=== PATIENT | male | born 1975 | race Two or more races ===

== ENCOUNTER 2020-12-07 02:02 | Emergency (ER) | payer OTHER ==
[~2020-12-07] VITALS: Ht 162.6 cm; Wt 54.4 kg
--- NOTE | 2020-12-07 02:25 | NUR ---
Pt bibra c/o abd pain and diahrrea x2 days. Pt aaox4 breathing evenly and unlabored. Pt attached to monitor and pox. 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 at bedside. Rt hand 20g initiated. Pt given blanket and call light within reach
[2020-12-07] MEDS ORDERED: IV NS 0.9% 1,000 ML BAG IV ONE (02:30)
--- NOTE | 2020-12-07 02:45 | NUR ---
blood sent to lab
[2020-12-07 02:50] LABS: EOSINOPHILS % (AUTO) 1.6 % (0.0-6.0); HEMATOCRIT 29 % (39-51); HEMOGLOBIN 9.4 g/dL (13.5-17.5); LYMPHOCYTES # (AUTO) 0.7 K/uL (0.8-4.8); LYMPHOCYTES % (AUTO) 14.7 % (20.0-44.0); MEAN CORPUSCULAR HGB CONC 33 g/dl (31.0-36.0); MEAN CORPUSCULAR VOLUME 92 fL (80-96); MONOCYTES # (AUTO) 0.4 K/uL (0.1-1.30); MONOCYTES % (AUTO) 7.7 % (2.0-12.0); NEUTROPHILS # (AUTO) 3.5 K/uL (1.8-8.9); PLATELET COUNT (AUTO) 175 K/uL (150-450); WHITE BLOOD COUNT (AUTO) 4.6 K/uL (4.3-11.0)
[2020-12-07] MEDS: IV NS 0.9% 500 ML BAG IV ONE (02:50)
--- NOTE | 2020-12-07 02:51 | NUR ---
pt placed on 2L O2 via nc. saturating 99%
--- NOTE | 2020-12-07 02:54 | NUR ---
md verbal order 2mg morphine iv
[2020-12-07] MEDS ORDERED: MORPHINE SULFATE INJ 2 MG/ML DISP.SYRIN ONE (02:58)
--- NOTE | 2020-12-07 02:58 | NUR ---
taken to ct
[2020-12-07] MEDS: MORPHINE SULFATE INJ 2 MG/ML DISP.SYRIN IV ONE (03:00)
--- NOTE | 2020-12-07 03:05 | NUR ---
returned from ct
[2020-12-07 03:08] LABS: ALBUMIN 3.5 g/dL (3.4-5.0); BILIRUBIN,DIRECT 0.2 mg/dL (0.0-0.2); BILIRUBIN,TOTAL 0.6 mg/dL (0.2-1.0); CALCIUM, SERUM 9.5 mg/dL (8.5-10.1); CREATININE 3.3 mg/dL (0.6-1.3); POTASSIUM 3.4 mmol/L (3.5-5.1); TOTAL PROTEIN, SERUM 7.3 g/dL (6.4-8.2)
[2020-12-07 04:07] LABS: BILIRUBIN,URINE NEGATIVE (NEGATIVE); COLOR,URINE YELLOW (YELLOW); LEUKOCYTE ESTERASE ,URINE NEGATIVE (NEGATIVE); NITRITE, URINE NEGATIVE (NEGATIVE); PH,URINE 8.5 (5.0-8.0); PROTEIN,URINE 100 mg/dl (NEGATIVE); UGLUCOSE 100 MG/DL mg/dL (NEGATIVE); UROBILINOGEN,URINE 0.2 EU/dL (0.2)
--- NOTE | 2020-12-07 04:15 | NUR ---
Patient is resting comfortably in bed with eyes closed. Easily aroused. VSS
--- NOTE | 2020-12-07 04:21 | NUR ---
called [facility] ambulance. ETA 06
--- NOTE | 2020-12-07 06:05 | NUR ---
Patient is resting comfortably in bed with eyes closed. Easily aroused. VSS
--- NOTE | 2020-12-07 06:25 | NUR ---
report given to ems
--- NOTE | 2020-12-07 06:26 | NUR ---
Patient discharged to home in stable condition. Written and verbal after care instructions given. Patient verbalizes understanding of instruction. IV removed. Catheter intact and site benign. Pressure and 4x4 applied to site. No bleeding noted. Pt dc via ambulance to residence
[2020-12-07 06:31] LABS: BACTERIA,URINE Rare /HPF (None Seen); SQUAMOUS EPITHELIAL CELL,UR Few /HPF (None Seen); WBC,URINE 0-2 /HPF (0-3)
[2020-12-07 06:44] VITALS: BP 121/67
== END 2020-12-07 06:26 | disposition home or self-care (01) ==
LOC: ER 02:10
DX: R19.7 Diarrhea, unspecified (principal); R10.84 Generalized abdominal pain
CPT/HCPCS: 36415; 74176; 80048; 80076; 81001; 83690; 85025; 96374; 99285; J2270; J7040

== ENCOUNTER 2021-03-26 10:30 | Inpatient (IN) | payer OTHER ==
[~2021-03-26] VITALS: Ht 152.4 cm; Wt 54.4 kg
--- NOTE | 2021-03-26 10:30 | NUR ---
PT BIBRA FROM HOME C/O ABDOMINAL PAIN, VOMITING AND DIARRHEA STARTED FRIDAY. PT IS AAOX4, NOT IN RESPIRATORY DISTRESS, HOOKED TO TAP DANCER, KEPT RESTED AND COMFORTABLE. WILL CONTINUE TO MONITOR.
--- NOTE | 2021-03-26 10:40 | NUR ---
PT SEEN AND EXAMINED BY .
[2021-03-26] MEDS ORDERED: IV NS 0.9% 500 ML BAG IV ONE (11:00)
[2021-03-26] MEDS ORDERED: ONDANSETRON HCL/PF 4 MG/2 ML VIAL IVP ONE (11:00)
--- NOTE | 2021-03-26 11:10 | NUR ---
IV LINE ESTABLISHED BLOOD DRAWN AND SENT TO LAB.
[2021-03-26] MEDS ORDERED: ONDANSETRON HCL/PF 4 MG/2 ML VIAL ONE (11:11)
--- NOTE | 2021-03-26 11:21 | NUR ---
COVID SPECIMEN OBTAINED AND SENT TO LAB.
[2021-03-26 11:52] LABS: BASOPHILS % (AUTO) 0.5 % (0.0-2.0); EOSINOPHILS % (AUTO) 0.9 % (0.0-6.0); HEMATOCRIT 35 % (39-51); HEMOGLOBIN 11.4 g/dL (13.5-17.5); LYMPHOCYTES # (AUTO) 0.8 K/uL (0.8-4.8); LYMPHOCYTES % (AUTO) 17.4 % (20.0-44.0); MEAN CORPUSCULAR HGB CONC 33 g/dl (31.0-36.0); MEAN CORPUSCULAR VOLUME 87 fL (80-96); MONOCYTES # (AUTO) 0.3 K/uL (0.1-1.30); MONOCYTES % (AUTO) 6.7 % (2.0-12.0); NEUTROPHILS # (AUTO) 3.3 K/uL (1.8-8.9); NEUTROPHILS % (AUTO) 74.5 % (43.0-81.0); PLATELET COUNT (AUTO) 138 K/uL (150-450); RED BLOOD CELL COUNT(AUTO) 4.03 MIL/uL (4.5-6.0); WHITE BLOOD COUNT (AUTO) 4.4 K/uL (4.3-11.0)
[2021-03-26 12:25] LABS: ALANINE AMINOTRANSFERASE 20 U/L (12-78); ALBUMIN 3.6 g/dL (3.4-5.0); ALKALINE PHOSPHATASE 551 U/L (46-116); ASPARTATE AMINOTRANSFERASE 19 U/L (15-37); BILIRUBIN,DIRECT 0.3 mg/dL (0.0-0.2); BILIRUBIN,TOTAL 0.6 mg/dL (0.2-1.0); CALCIUM, SERUM 10.1 mg/dL (8.5-10.1); CARBON DIOXIDE 30 mmol/L (21-32); CHLORIDE 96 mmol/L (98-107); CREATININE 7.1 mg/dL (0.6-1.3); GLUCOSE 88 mg/dL (74-106); LIPASE 105 U/L (73-393); SODIUM SERUM 136 mmol/L (136-145); TOTAL PROTEIN, SERUM 7.5 g/dL (6.4-8.2); UREA NITROGEN, BLOOD 63 mg/dL (7-18)
[2021-03-26] MEDS ORDERED: MIDO10TA PO (12:27)
[2021-03-26] MEDS ORDERED: ATOR40TA PO (12:27)
[2021-03-26] MEDS ORDERED: METO25TA20 PO (12:27)
[2021-03-26] MEDS ORDERED: SEVE800T28 PO (12:27)
[2021-03-26 12:38] LABS: POTASSIUM 6.2 mmol/L (3.5-5.1)
--- NOTE | 2021-03-26 13:28 | NUR ---
SPOKE WITH LANIE Fernandez PREFERRED IPA [phone] SHE WOULD LIKE TO ARRANGE PT TO BE TRANSFERRED TO [facility] PE[facility] TO PEER NEEDED WITH HOSPITALIST [phone]
--- NOTE | 2021-03-26 13:48 | NUR ---
PER DR. ENG, PT HAS BEEN GIVEN VERBAL AUTHORIZATION FOR THE PT TO STAY.
--- NOTE | 2021-03-26 14:18 | NUR ---
ROOM 311-1
--- NOTE | 2021-03-26 14:40 | NUR ---
report given to STACEY Ndiaye
--- NOTE | 2021-03-26 14:50 | NUR ---
PT TRANSFERRED TO FLOOR FOLLOWING ACLS PROTOCOL.
--- NOTE | 2021-03-26 15:00 | NUR ---
BUILDING GUARD DEPUTY SHERIFF NOTE RECEIVED PATIENT VIA RNEY. PATIENT IS A/O X4. PATIENT IS BREATHING EVENLY AND NONLABORED ON ROOM AIR. NO SIGNS OF DISTRESS NOTED. NO SOB. PATIENT COMPLAINS OF MILD ABDOMINAL PAIN OTHERWISE NO PAIN, MD AWARE. MD AWARE OF K 6.2, WILL HAVE DIALYSIS LATER TODAY. VITALS BP 138/79,HR 89 RR 20 O2 SAT 95%/ TEMP 97.7. PATIENT NOTED WITH RFA # 20 GAUGE PATENT AND INTACT. PATIENT NOTED WITH LEFT FOREARM FISTULA POSITIVE THRILL AND BRUIT. PATIENT PLACE ON TELE MONITOR. SKIN C/D/I. ABDOMINAL ASSESSMENT SOFT NONTENDER. SAFETY MEASURES IN PLACE BED LOW LOCKED AND CALL LIGHT WITHIN REACH, SIDE RAILS UP X2. WILL CONTINUE TO MONITOR
[2021-03-26] MEDS ORDERED: ONDANSETRON HCL/PF 4 MG/2 ML VIAL IVP PRN (15:30)
[2021-03-26] MEDS ORDERED: ACETAMINOPHEN 325 MG TABLET PO PRN (15:30)
[2021-03-26] MEDS ORDERED: Z GUARD REMEDY 4 OZ OINT TP PRN (15:30)
[2021-03-26] MEDS ORDERED: MIDODRINE HCL (5MG) 5 MG TABLET PO PRN (16:00)
[2021-03-26] MEDS ORDERED: Medication Not On Formulary EA (Midodrine Hcl 10 MG) PO PRN (16:00)
[2021-03-26 16:04] VITALS: BP 138/79
[2021-03-26] MEDS: ATORVASTATIN 40 MG TABLET PO SCH (17:08)
[2021-03-26] MEDS: SEVELAMER CARBONATE 800 MG TABLET PO SCH (17:08)
--- NOTE | 2021-03-26 18:20 | NUR ---
HRIS ADMINISTRATOR CLOSING NOTE PATIENT RESTING IN BED, HAVING HD. PATIENT IS A/O X4. PATIENT IS BREATHING EVENLY AND NONLABORED ON ROOM AIR. NO SIGNS OF DISTRESS NOTED. NO SOB. PATIENT DENIES PAIN OR DISCOMFORT AT THIS TIME. PATIENT NOTED WITH RFA # 20 GAUGE PATENT AND INTACT. PATIENT NOTED WITH LEFT FOREARM FISTULA POSITIVE THRILL AND BRUIT. PATIENT NOTED ON TELE MONITOR. ALL MEDICATIONS GIVEN ORDERED. SAFETY MEASURES IN PLACE BED LOW LOCKED AND CALL LIGHT WITHIN REACH, SIDE RAILS UP X2. WILL ENDORSE TO ONCOMING SHIFT
[2021-03-26 20:00] VITALS: BP 117/74
[2021-03-26] MEDS: HEPARIN SODIUM, PORCINE 5000 UNITS/1 ML VIAL SQ SCH (21:00)
[2021-03-27] VITALS: BP 140/59
[2021-03-27 04:00] VITALS: BP 107/68
[2021-03-27 06:57] LABS: BASOPHILS % (AUTO) 1.1 % (0.0-2.0); EOSINOPHILS % (AUTO) 2.1 % (0.0-6.0); HEMATOCRIT 32 % (39-51); HEMOGLOBIN 10.5 g/dL (13.5-17.5); LYMPHOCYTES # (AUTO) 0.8 K/uL (0.8-4.8); LYMPHOCYTES % (AUTO) 22.5 % (20.0-44.0); MEAN CORPUSCULAR HGB CONC 33 g/dl (31.0-36.0); MEAN CORPUSCULAR VOLUME 88 fL (80-96); MONOCYTES # (AUTO) 0.3 K/uL (0.1-1.30); MONOCYTES % (AUTO) 9.6 % (2.0-12.0); NEUTROPHILS # (AUTO) 2.2 K/uL (1.8-8.9); NEUTROPHILS % (AUTO) 64.7 % (43.0-81.0); PLATELET COUNT (AUTO) 125 K/uL (150-450); RED BLOOD CELL COUNT(AUTO) 3.68 MIL/uL (4.5-6.0); WHITE BLOOD COUNT (AUTO) 3.4 K/uL (4.3-11.0)
[2021-03-27 07:02] LABS: CALCIUM, SERUM 9.5 mg/dL (8.5-10.1); CREATININE 4.4 mg/dL (0.6-1.3); MAGNESIUM 2.5 mg/dL (1.8-2.4); PHOSPHORUS 5.4 mg/dL (2.5-4.9); POTASSIUM 4.6 mmol/L (3.5-5.1)
--- NOTE | 2021-03-27 07:26 | NUR ---
PLASTICS SEASONER OPERATOR NOTES PATIENT RESTING IN BED, A/O X4, ROMANSH-SPEAKING AND ABLE TO MAKE NEEDS KNOWN. PATIENT IS BREATHING EVEN AND NONLABORED ON ROOM AIR. NO SIGNS OF DISTRESS NOTED. NO SOB. DENIES PAIN NOR DISCOMFORT AT THIS TIME. RFA # 20 GAUGE PATENT AND INTACT. LEFT FOREARM FISTULA POSITIVE THRILL AND BRUIT. SAFETY MEASURES IN PLACE. WILL CONTINUE TO MONITOR.
[2021-03-27] MEDS: SEVELAMER CARBONATE 800 MG TABLET PO SCH ×3 (07:57→17:07)
[2021-03-27 08:00] VITALS: BP 129/79
[2021-03-27] MEDS: HEPARIN SODIUM, PORCINE 5000 UNITS/1 ML VIAL SQ SCH ×2 (08:23→20:56)
[2021-03-27 16:00] VITALS: BP 129/82
[2021-03-27] MEDS: ATORVASTATIN 40 MG TABLET PO SCH (17:07)
--- NOTE | 2021-03-27 19:23 | NUR ---
RN NOTES PATIENT RESTING IN BED, NOT IN ACUTE DISTRESS. BREATHING EVEN AND UNLABORED, CONTINUES ON ROOM AIR. NO COMPLAINT OF PAIN NOR DISCOMFORT. SAFETY MEASURES MAINTAINED. ENDORSED TO GOODWILL AMBASSADOR RN FOR ALBERTO.
--- NOTE | 2021-03-27 19:30 | NUR ---
MULTIMEDIA TEACHER OPENING NOTES: RECEIVED PATIENT IN BED, AWAKE, A/O X4. NO S/S OF DISTRESS NOTED. NO COMPLAIN OF PAIN. CALL LIGHT WITHIN REACH. BED IN LOWEST AND LOCKED POSITION. BED ALARM ON. ON TELE MONITOR WITH SINUS 94.
[2021-03-27 20:00] VITALS: BP 130/77
[2021-03-28] VITALS: BP 132/75
[2021-03-28 04:00] VITALS: BP 139/85
[2021-03-28 06:45] LABS: BASOPHILS % (AUTO) 1.2 % (0.0-2.0); EOSINOPHILS % (AUTO) 2.5 % (0.0-6.0); HEMATOCRIT 32 % (39-51); HEMOGLOBIN 10.5 g/dL (13.5-17.5); LYMPHOCYTES # (AUTO) 0.9 K/uL (0.8-4.8); LYMPHOCYTES % (AUTO) 24.9 % (20.0-44.0); MEAN CORPUSCULAR HGB CONC 32 g/dl (31.0-36.0); MEAN CORPUSCULAR VOLUME 88 fL (80-96); MONOCYTES # (AUTO) 0.3 K/uL (0.1-1.30); MONOCYTES % (AUTO) 8.4 % (2.0-12.0); NEUTROPHILS # (AUTO) 2.4 K/uL (1.8-8.9); PLATELET COUNT (AUTO) 117 K/uL (150-450); RED BLOOD CELL COUNT(AUTO) 3.68 MIL/uL (4.5-6.0); WHITE BLOOD COUNT (AUTO) 3.7 K/uL (4.3-11.0)
[2021-03-28 07:17] LABS: CALCIUM, SERUM 10.1 mg/dL (8.5-10.1); CREATININE 6.1 mg/dL (0.6-1.3); POTASSIUM 5.7 mmol/L (3.5-5.1)
--- NOTE | 2021-03-28 07:30 | NUR ---
MS RN OPENING NOTES RECEIVED PATIENT ON BED AWAKE AND A/O X4. ON ROOM AIR TOLERATING WELL. NO SOB NOTED. NOT IN DISTRESS. WITH NO COMPLAINTS OF PAIN OR DISCOMFORT AT THIS TIME. WITH IV ACCESS AT RIGHT FOREARM G20 SALINE LOCKED, PATENT AND INTACT. WITH LEFT ARM AV FISTULA WITH DRY AND INTACT DRESSING. SAFETY MEASURES IN PLACED. CALL LIGHT WITHIN REACH. BED ON LOWEST LOCKED POSITION, SIDE RAILS UP X2. WILL CONTINUE TO MONITOR.
[2021-03-28 08:22] VITALS: BP 150/91
[2021-03-28] MEDS: HEPARIN SODIUM, PORCINE 5000 UNITS/1 ML VIAL SQ SCH (09:20)
[2021-03-28] MEDS: SEVELAMER CARBONATE 800 MG TABLET PO SCH ×3 (09:20→17:12)
[2021-03-28] MEDS ORDERED: MIDO5TAB4 PO (11:18)
[2021-03-28 12:30] VITALS: BP 143/88
[2021-03-28 16:15] VITALS: BP 153/96
[2021-03-28] MEDS: ATORVASTATIN 40 MG TABLET PO SCH (17:12)
--- NOTE | 2021-03-28 18:51 | NUR ---
MS RN CLOSING NOTES PATIENT ON BED AWAKE AND A/O X4. ON ROOM AIR TOLERATING WELL. NO SOB NOTED. NOT IN DISTRESS. WITH NO COMPLAINTS OF PAIN OR DISCOMFORT AT THIS TIME. WITH IV ACCESS AT RIGHT FOREARM G20 SALINE LOCKED, PATENT AND INTACT. STATUS S/P HEMODIALYSIS WITH AN OUTPUT OF 1.5L. WITH LEFT ARM AV FISTULA WITH DRY AND INTACT DRESSING. DUE MEDS GIVEN. SAFETY MEASURES IN PLACED. CALL LIGHT WITHIN REACH. BED ON LOWEST LOCKED POSITION, SIDE RAILS UP X2. WILL ENDORSE TO NEXT SHIFT FOR ALBERTO.
--- NOTE | 2021-03-28 19:37 | NUR ---
PATIENT WAS PICKED UP BY AMBULANCE AT 191. D/C INSTRUCTIONS GIVEN BY STACEY SEO, IV REMOVED BY STACEY SEO. PATIENT IS D/C TO HOME.
== END 2021-03-28 19:00 | disposition home or self-care (01) | DRG 425 ==
LOC: ER 10:35 → MED 14:21 → TELE 18:28
PROVIDERS: ADMIT Nurse Practitioner Family; ATTEND Nurse Practitioner Acute Care
PROC: 5A1D70Z Performance of Urinary Filtration, Intermittent, Less than 6 Hours Per Day (ICD-10-PCS; principal; 2021-03-26)
DX: E87.70 Fluid overload, unspecified (principal); D63.1 Anemia in chronic kidney disease; N18.6 End stage renal disease; Z99.2 Dependence on renal dialysis; E78.5 Hyperlipidemia, unspecified; E87.5 Hyperkalemia; Z20.822 Contact with and (suspected) exposure to COVID-19; Z79.899 Other long term (current) drug therapy; Z91.15 Patient's noncompliance with renal dialysis; M89.8X9 Other specified disorders of bone, unspecified site
CPT/HCPCS: 36415; 80048-TC; 80076-TC; 83605-TC; 83690-TC; 83735-TC; 84100-TC; 84484-TC; 85025-TC; 86706; 87040-TC; 87081-TC; 87340; 90935-TC; 97112-TC; 97530-TC; C9803; G0378; J1644; J2405; J7030; J7040

== ENCOUNTER 2021-06-01 09:52 | Inpatient (IN) | payer OTHER ==
[~2021-06-01] VITALS: Ht 162.6 cm; Wt 61.2 kg
[~2021-06-01 09:52] MED LIST: ATOR40TA PO; METO25TA20 PO; MIDO10TA PO; MIDO5TAB4 PO; SEVE800T28 PO
--- NOTE | 2021-06-01 10:07 | NUR ---
[id number] FOR LEFT LOWER EXTREMITY PAIN 11/26 AND MISSED DIALYSIS DUE TO PAIN. MISSED DIALYSIS WED AND TODAY. DENIES HAVING ANY TRAUMA. IN ROOM AIR AND DENIES SOB. RESPIRATION REGULAR AND UNLABORED. ATTACHED TO THE MONITOR. WILL CONTINUE TO MONITOR THE PATIENT.
--- NOTE | 2021-06-01 10:09 | NUR ---
DR GARCIA AT BEDSIDE
[2021-06-01 10:53] LABS: BASOPHILS % (AUTO) 0.7 % (0.0-2.0); EOSINOPHILS % (AUTO) 1.6 % (0.0-6.0); HEMATOCRIT 33 % (39-51); LYMPHOCYTES # (AUTO) 1.4 K/uL (0.8-4.8); LYMPHOCYTES % (AUTO) 26.7 % (20.0-44.0); MEAN CORPUSCULAR HGB CONC 33 g/dl (31.0-36.0); MEAN CORPUSCULAR VOLUME 88 fL (80-96); MONOCYTES # (AUTO) 0.4 K/uL (0.1-1.30); MONOCYTES % (AUTO) 7.1 % (2.0-12.0); NEUTROPHILS # (AUTO) 3.3 K/uL (1.8-8.9); NEUTROPHILS % (AUTO) 63.9 % (43.0-81.0); PLATELET COUNT (AUTO) 159 K/uL (150-450); RED BLOOD CELL COUNT(AUTO) 3.79 MIL/uL (4.5-6.0); WHITE BLOOD COUNT (AUTO) 5.1 K/uL (4.3-11.0)
[2021-06-01 10:56] LABS: ALBUMIN 3.2 g/dL (3.4-5.0); BILIRUBIN,DIRECT 0.2 mg/dL (0.0-0.2); BILIRUBIN,TOTAL 0.6 mg/dL (0.2-1.0); CALCIUM, SERUM 9.6 mg/dL (8.5-10.1); TOTAL PROTEIN, SERUM 7.5 g/dL (6.4-8.2)
[2021-06-01] MEDS ORDERED: ONDANSETRON HCL/PF - ER 4 MG/2 ML VIAL IV ONE (11:00)
[2021-06-01] MEDS ORDERED: MORPHINE SULFATE INJ 2 MG/ML DISP.SYRIN IV ONE ×2 (11:00→12:30)
[2021-06-01] MEDS ORDERED: MORPHINE SULFATE INJ 4 MG/ML DISP.SYRIN ONE ×3 (11:02→19:01)
[2021-06-01] MEDS ORDERED: ONDANSETRON HCL/PF 4 MG/2 ML VIAL ONE (11:02)
[2021-06-01 11:04] LABS: CREATININE 9.2 mg/dL (0.6-1.3); POTASSIUM 6.8 mmol/L (3.5-5.1)
--- NOTE | 2021-06-01 11:45 | NUR ---
CLINICALS PROVIDED TO LEEANNA IPA: [phone]
[2021-06-01 11:50] LABS: MAGNESIUM 2.6 mg/dL (1.8-2.4)
[2021-06-01] MEDS ORDERED: CALCIUM CHLORIDE 1,000 MG/10 ML DISP.SYRIN ONE (11:53)
[2021-06-01] MEDS ORDERED: DEXTROSE 50%-WATER 50 ML DISP.SYRIN ONE (11:54)
[2021-06-01] MEDS ORDERED: METOCLOPRAMIDE HCL 10 MG/2 ML VIAL ONE (11:54)
[2021-06-01] MEDS ORDERED: INSULIN REGULAR, HUMAN 100 UNIT/ML 10 ML VIAL ONE (11:55)
--- NOTE | 2021-06-01 11:59 | NUR ---
MIDLINE NURSE ETA 30MINS
--- NOTE | 2021-06-01 11:59 | NUR ---
REMOTE SENSING PROGRAM MANAGER AT BEDSIDE
[2021-06-01] MEDS ORDERED: SODIUM BICARBONATE SYR 50 MEQ/50 ML DISP.SYRIN IV ONE (12:00)
[2021-06-01] MEDS ORDERED: SODIUM POLYSTYRENE SULFONATE 15 G/60 ML BOTTLE PO ONE (12:00)
[2021-06-01] MEDS ORDERED: INSULIN REGULAR, HUMAN 100 UNIT/ML 10 ML VIAL IV ONE (12:00)
[2021-06-01] MEDS ORDERED: DEXTROSE 50%-WATER 50 ML DISP.SYRIN IV ONE (12:00)
[2021-06-01] MEDS ORDERED: CALCIUM CHLORIDE 1,000 MG/10 ML DISP.SYRIN IV ONE (12:00)
[2021-06-01] MEDS ORDERED: SODIUM POLYSTYRENE SULFONATE 15 G/60 ML BOTTLE ONE (12:04)
--- NOTE | 2021-06-01 12:27 | NUR ---
MIDLINE NURSE AT BEDSIDE
--- NOTE | 2021-06-01 12:28 | NUR ---
COVID SWAB DONE AND SENT TO LAB
[2021-06-01] MEDS ORDERED: SODIUM BICARBONATE SYR 50 MEQ/50 ML DISP.SYRIN ONE (12:36)
[2021-06-01] MEDS ORDERED: Z GUARD REMEDY 4 OZ OINT TP PRN (13:30)
[2021-06-01] MEDS ORDERED: ZOLPIDEM TARTRATE 5 MG TABLET PO PRN (13:30)
--- NOTE | 2021-06-01 13:55 | NUR ---
ORTHO MD AT BEDSIDE
[2021-06-01] MEDS ORDERED: HYDROMORPHONE 1 MG/1 ML DISP.SYRIN ONE (14:16)
[2021-06-01] MEDS ORDERED: HYDROMORPHONE 1 MG/1 ML DISP.SYRIN IV ONE (14:30)
--- NOTE | 2021-06-01 14:55 | NUR ---
GERALD HASTINGS RN AT BEDSIDE FOR HEMODIALYSIS
--- NOTE | 2021-06-01 14:57 | NUR ---
CONSENT FOR HEMODIALYSIS SIGNED
--- NOTE | 2021-06-01 15:00 | NUR ---
HEMODIALYSIS STARTED BY DARLING IBARRA.
--- NOTE | 2021-06-01 16:09 | NUR ---
ONGOING HEMODIALYSIS. VSS.
--- NOTE | 2021-06-01 17:30 | NUR ---
DIALYSIS DONE. 2.5 HOURS TOTAL. 2LITERS OF FLUID REMOVED. VSS. NO BLEEDING NOTED AT DIALYSIS ACCESS.
--- NOTE | 2021-06-01 18:25 | NUR ---
RECEIVED TELEPHONE ORDER FOR REPEAT CMP (POST HEMODIALYSIS) AND MORPHINE 3MG IV PRN Q4HRS FOR SEVERE PAIN. CARRIED OUT.
--- NOTE | 2021-06-01 18:30 | NUR ---
NURSING SUP GAVE TELE BED 326-1. PLEASE TRANSFER PATIENT AFTER SHIFT CHANGE.
--- NOTE | 2021-06-01 18:55 | NUR ---
REPORT GIVEN TO GERALDINE IBARRA OF TELE UNIT
[2021-06-01] MEDS: MORPHINE SULFATE INJ 2 MG/ML DISP.SYRIN IV PRN (19:05)
[2021-06-01 19:12] LABS: CALCIUM, SERUM 9.8 mg/dL (8.5-10.1); CREATININE 5.5 mg/dL (0.6-1.3); POTASSIUM 4.5 mmol/L (3.5-5.1)
[2021-06-01 19:19] LABS: ALBUMIN 3.3 g/dL (3.4-5.0); BILIRUBIN,TOTAL 0.9 mg/dL (0.2-1.0); TOTAL PROTEIN, SERUM 7.3 g/dL (6.4-8.2)
--- NOTE | 2021-06-01 19:27 | NUR ---
PT TRANSFERRED UNDER ACLS.
[2021-06-01 19:30] VITALS: BP 154/94
[2021-06-01] MEDS: ATORVASTATIN 40 MG TABLET PO SCH (20:17)
[2021-06-01] MEDS: SEVELAMER CARBONATE 800 MG TABLET PO SCH (20:18)
--- NOTE | 2021-06-01 23:55 | NUR ---
ADMISSION NOTES PT TRANSFERRED @ 1930 VIA GURNEY AND ACCOMPANIED BY RN AND EMT. AOx4, SOUTH SUDANESE SPEAKING AND ABLE TO MAKE NEEDS KNOWN. ON 2 LPM VIA NC AND TOLERATING WELL. NO SOB NOTED. NO S/SX OF RESPIRATORY DISTRESS NOTED. IV ACCESS IN SHELLY MIDLINE, RHAND #22G, AND LFA AV FISTULA. IV IS INTACT, PATENT, AND FLUSHING WELL. UNABLE TO DO SKIN ASSESSMENT PATIENT DID NOT WANT TO BE TURNED. SAFETY PRECAUTIONS IN PLACE: BED IN LOWEST, LOCKED POSITION,SIDERAILS UPx2, AND BRAKES ON. TABLE AND CALL LIGHT WITHIN REACH. WILL CONTINUE TO MONITOR.
[2021-06-02] MEDS: MORPHINE SULFATE INJ 2 MG/ML DISP.SYRIN IV PRN ×5 (02:43→21:41)
--- NOTE | 2021-06-02 02:44 | NUR ---
ADMINISTERED MORPHINE FOR PAIN PER MD ORDER. VS WNL. WILL CONTINUE TO MONITOR.
[2021-06-02 04:00] VITALS: BP 140/82
--- NOTE | 2021-06-02 06:34 | NUR ---
RN CLOSING NOTES PT IN BED, ASLEEP, AWAKENS TO VERBAL STIMULI. AOx4, UPPER SORBIAN SPEAKING AND ABLE TO MAKE NEEDS KNOWN. ON 2 LPM VIA NC AND TOLERATING WELL. NO SOB NOTED. NO S/SX OF RESPIRATORY DISTRESS NOTED. IV ACCESS IN SHELLY MIDLINE, R HAND #22G, AND LFA AV FISTULA. IV IS INTACT, PATENT, AND FLUSHING WELL. PT REFUSED TO BE TURNED FOR SKIN ASSESSMENT. ALL NEEDS MET. PT KEPT CLEAN AND DRY. TREATED PAIN THROUGHOUT SHIFT. SAFETY PRECAUTIONS IN PLACE: BED IN LOWEST, LOCKED POSITION, SIDERAILS UPx2, AND BRAKES ON. TABLE AND CALL LIGHT WITHIN REACH. WILL ENDORSE TO ONCOMING SHIFT FOR ALBERTO.
[2021-06-02 06:42] LABS: BASOPHILS % (AUTO) 0.7 % (0.0-2.0); EOSINOPHILS % (AUTO) 0.3 % (0.0-6.0); HEMATOCRIT 34 % (39-51); HEMOGLOBIN 10.8 g/dL (13.5-17.5); LYMPHOCYTES # (AUTO) 0.4 K/uL (0.8-4.8); MEAN CORPUSCULAR HGB CONC 32 g/dl (31.0-36.0); MEAN CORPUSCULAR VOLUME 89 fL (80-96); MONOCYTES # (AUTO) 0.5 K/uL (0.1-1.30); MONOCYTES % (AUTO) 11.9 % (2.0-12.0); NEUTROPHILS # (AUTO) 3.5 K/uL (1.8-8.9); NEUTROPHILS % (AUTO) 78.1 % (43.0-81.0); PLATELET COUNT (AUTO) 168 K/uL (150-450); RED BLOOD CELL COUNT(AUTO) 3.77 MIL/uL (4.5-6.0); WHITE BLOOD COUNT (AUTO) 4.4 K/uL (4.3-11.0)
[2021-06-02 06:57] LABS: ALBUMIN 3.1 g/dL (3.4-5.0); BILIRUBIN,TOTAL 0.7 mg/dL (0.2-1.0); CALCIUM, SERUM 9.3 mg/dL (8.5-10.1); CREATININE 6.6 mg/dL (0.6-1.3); MAGNESIUM 2.3 mg/dL (1.8-2.4); PHOSPHORUS 6.6 mg/dL (2.5-4.9); POTASSIUM 5.1 mmol/L (3.5-5.1); TOTAL PROTEIN, SERUM 7.1 g/dL (6.4-8.2)
[2021-06-02 08:00] VITALS: BP 130/83
--- NOTE | 2021-06-02 08:00 | NUR ---
received pt. in am alert and oriented x4.bolivian speaking.organizational development director akanksha eid
--- NOTE | 2021-06-02 08:12 | NUR ---
medicated for lt. leg pain with morphine.
[2021-06-02] MEDS: SEVELAMER CARBONATE 800 MG TABLET PO SCH ×3 (08:18→17:09)
[2021-06-02 12:00] VITALS: BP 136/72
[2021-06-02 16:00] VITALS: BP 140/62
[2021-06-02] MEDS: ATORVASTATIN 40 MG TABLET PO SCH (17:09)
[2021-06-02] MEDS: BACLOFEN (10 MG) 10 MG TABLET PO SCH (17:09)
--- NOTE | 2021-06-02 18:16 | NUR ---
medicated x3 for pain.
--- NOTE | 2021-06-02 18:40 | NUR ---
fiberglass finisher reports pt. refused all 3 meals.
--- NOTE | 2021-06-02 19:30 | NUR ---
EMPLOYER RELATIONS REPRESENTATIVE OPENING NOTES PATIENT LYING IN BED ASLEEP. EASY TO AROUSE. A/O X4. BREATHING EVEN AND UNLABORED. NOT IN APPARENT DISTRESS. HAS RIGHT UPPER ARM MIDLINE #18G AND RIGHT HAND IV ACCESS #22G. SALINE LOCKED AND NO S/S OF INFILTRATION NOTED. HAS LEFT FOREARM AV FISTULA. DRESSING INTACT. SAFETY PRECAUTIONS IN PLACED. WILL CONTINUE PLAN OF CARE.
[2021-06-02] MEDS: METOPROLOL TARTRATE 25 MG TABLET PO PRN (20:48)
[2021-06-02] MEDS: ACETAMINOPHEN 325 MG TABLET PO PRN (23:34)
--- NOTE | 2021-06-03 | NUR ---
ASSIGNMENT DESK ASSISTANT NOTES PATIENT'S BP IS 117/72. HOLD PRN MIDODRINE PER PATIENT IS STABLE. WILL CONTINUE TO MONITOR.
[2021-06-03] MEDS: MORPHINE SULFATE INJ 2 MG/ML DISP.SYRIN IV PRN ×2 (01:30→12:31)
--- NOTE | 2021-06-03 01:48 | NUR ---
DUPLIGRAPH OPERATOR NOTES PATIENT REQUESTED HIS OXYGEN. ADMINISTERED O2 AT 2LPM VIA NASAL CANNULA. ELEVATED HOB AT 45 DEGREES.
--- NOTE | 2021-06-03 06:48 | NUR ---
FURNITURE SERVICER CLOSING NOTES PATIENT LYING IN BED ASLEEP. EASY TO AROUSE. A/O X4. NO C/O PAIN AT THIS TIME. ON O2 AT 2 LPM VIA NASAL CANULA. NO SOB OR NOTED. HAS RIGHT UPPER ARM MIDLINE #18G AND RIGHT HAND IV ACCESS #22G. SALINE LOCKED, INTACT AND FLUSHING. HAS LEFT FOREARM AV FISTULA. DRESSING INTACT. SKIN ASSESSMENT DONE AND PHOTOS TAKEN. ALL NEEDS ATTENDED. KEPT DRY AND COMFORTABLE. RECEIVED FOOD DELIVERY AROUND 2100. SAFETY PRECAUTIONS IN PLACED: BED LOW AND LOCKED, BED ALARM ON, SIDE RAILS UP X2, CALL LIGHT WITHIN REACH.
[2021-06-03 07:10] LABS: BASOPHILS % (AUTO) 0.5 % (0.0-2.0); HEMATOCRIT 32 % (39-51); HEMOGLOBIN 10.5 g/dL (13.5-17.5); LYMPHOCYTES % (AUTO) 15.2 % (20.0-44.0); MEAN CORPUSCULAR HGB CONC 32 g/dl (31.0-36.0); MEAN CORPUSCULAR VOLUME 88 fL (80-96); MONOCYTES # (AUTO) 0.6 K/uL (0.1-1.30); MONOCYTES % (AUTO) 8.5 % (2.0-12.0); NEUTROPHILS % (AUTO) 74.8 % (43.0-81.0); PLATELET COUNT (AUTO) 174 K/uL (150-450); RED BLOOD CELL COUNT(AUTO) 3.65 MIL/uL (4.5-6.0); WHITE BLOOD COUNT (AUTO) 6.7 K/uL (4.3-11.0)
--- NOTE | 2021-06-03 07:16 | NUR ---
RN NOTES RESTING IN BED, EYES CLOSED, ABLE TO BE AWAKENED. NO COMPLAINT OF PAIN AT THIS TIME. IV LINE INTACT AND PATENT. L ARM FISTULA INTACT. SAFETY MEASURES IN PLACE. WILL CONTINUE TO MONITOR.
[2021-06-03 07:42] LABS: CALCIUM, SERUM 9.2 mg/dL (8.5-10.1); MAGNESIUM 2.3 mg/dL (1.8-2.4); PHOSPHORUS 7.3 mg/dL (2.5-4.9); POTASSIUM 5.5 mmol/L (3.5-5.1)
[2021-06-03 07:43] LABS: CREATININE 8.3 mg/dL (0.6-1.3)
[2021-06-03] MEDS: SEVELAMER CARBONATE 800 MG TABLET PO SCH ×3 (08:09→17:06)
[2021-06-03] MEDS: BACLOFEN (10 MG) 10 MG TABLET PO SCH ×3 (08:09→17:06)
[2021-06-03] MEDS: METOPROLOL TARTRATE 25 MG TABLET PO PRN (08:18)
--- NOTE | 2021-06-03 09:00 | NUR ---
RN NOTES PRN METOPROLOL GIVEN SBP >110. NO COMPLAINT OF PAIN AT THIS TIME.
--- NOTE | 2021-06-03 13:20 | NUR ---
RN NOTES PATIENT SEEN BY DR. LANG W/ ORDERS NOTED.
[2021-06-03] MEDS: ATORVASTATIN 40 MG TABLET PO SCH (17:06)
--- NOTE | 2021-06-03 19:45 | NUR ---
BAND BUILDER OPENING NOTE RECEIVED PATIENT IN BED WITH EYES CLOSED, EASY TO AROUSE BUT JUST SCREAM CRIES WHEN WOKEN UP.. UNABLE TO ANSWER QUESTION ABOUT PAIN, WILL CONTINUE TO ASSESS AND MONITOR AND GIVE PAIN MEDICATION NEEDED. NO S/S OF APPARENT DISTRESS IN ROOM AIR. NO FLUIDS RUNNING AT THIS TIME. L. ARM FISTULA BRUIT AND THRILL AUSCULTATED AND FELT. SAFETY IN PLACE. WILL CONTINUE WITH PATIENT'S CARE PLAN.
[2021-06-03 20:00] VITALS: BP 151/66
--- NOTE | 2021-06-03 21:00 | NUR ---
STEEL TIER NOTE NO NEED PAIN MEDICATION PER IT PROGRAMMER. PATIENT SOMNOLENT. WILL MONITOR.
[2021-06-04] VITALS (18 sets, daily range): BP systolic 91–147; BP diastolic 44–87
[2021-06-04] MEDS: MORPHINE SULFATE INJ 2 MG/ML DISP.SYRIN IV PRN ×2 (01:13→06:31)
--- NOTE | 2021-06-04 06:36 | NUR ---
WEB SITE SPECIALIST NOTE CARTON FOLDER OBTAINED TO SPEAK WITH PATIENT FOR SCHEDULED PROCEDURES TO OBTAIN CONSENT, SUPPOSEDLY. PATIENT A/OX2-3 BUT IN SO MUCH PAIN WHEN AWAKE AND TOUCHED. SCREAMS AND CRIES OF PAIN, WHEN ASKED TO RATE HIS PAIN FROM 1-10, PATIENT JUST SAYS IN TOO MUCH PAIN ON HIS LEGS AND CHEST-- PATIENT STARTED IN O2 2LPM VIA NC (WHICH HE KEPT REFUSING EARLIER) AND GIVEN MORPHINE PRN. SATURATION 98%, RR-16, WITH USED OF ACCESSORY MUSCLE AND AUDIBLE RHONCHI. PATIENT UNABLE TO SIGN DUE TO CONDITION. WHEN ASKED IF HE HAS ANY FAMILY MEMBERS OR NUMBER HE COULD GIVE FOR US TO CALL PATIENT SAID NO. NO NUMBERS NOR FAMILY MEMBERS IN CHART. TRIED TO CALL PHONE NUMBER BUT IS DIRECTED TO POLICE PATROL LIEUTENANT. NO ANSWER. WILL ENDORSE TO MORNING RN.
--- NOTE | 2021-06-04 06:46 | NUR ---
TELE MONITOR READING SINUS RHYTHM 70 BPM.
[2021-06-04 07:20] LABS: BASOPHILS % (AUTO) 0.3 % (0.0-2.0); EOSINOPHILS % (AUTO) 0.2 % (0.0-6.0); HEMATOCRIT 35 % (39-51); HEMOGLOBIN 11.4 g/dL (13.5-17.5); LYMPHOCYTES # (AUTO) 0.3 K/uL (0.8-4.8); LYMPHOCYTES % (AUTO) 4.3 % (20.0-44.0); MEAN CORPUSCULAR HGB CONC 32 g/dl (31.0-36.0); MEAN CORPUSCULAR VOLUME 89 fL (80-96); MONOCYTES # (AUTO) 0.3 K/uL (0.1-1.30); MONOCYTES % (AUTO) 4.4 % (2.0-12.0); NEUTROPHILS # (AUTO) 6.8 K/uL (1.8-8.9); NEUTROPHILS % (AUTO) 90.8 % (43.0-81.0); PLATELET COUNT (AUTO) 213 K/uL (150-450); RED BLOOD CELL COUNT(AUTO) 3.96 MIL/uL (4.5-6.0); WHITE BLOOD COUNT (AUTO) 7.4 K/uL (4.3-11.0)
--- NOTE | 2021-06-04 07:28 | NUR ---
NURSING SURGICAL SERVICES DIRECTOR NOTE PATIENT SLEEPING AT THIS TIME, LIGHT AND DEEP PAIN TO AROUSE. AUDIBLE RHONCHI. IN 2LPM OF O2 VIA NC. TELE MONITOR READING SR 62 BPM. PAIN MANAGED WITH MEDICATIONS, BUT STILL IN TOO MUCH PAIN WHEN AWAKE AND TOUCHED. NEEDS ATTENDED. ENDORSED TO LAURA FOR CONTINUITY OF CARE.
--- NOTE | 2021-06-04 07:30 | NUR ---
PT RECEIVED RESTING COMFORTABLY IN BED WITH EYES CLOSED. NO S/S OR C/O PAIN OR DISTRESS NOTED. SIDE RAILS UP X2, CALL LIGHT LEFT WITHIN REACH. WILL CONTINUE PLAN OF CARE.
[2021-06-04 07:46] LABS: MAGNESIUM 2.5 mg/dL (1.8-2.4); POTASSIUM 5.9 mmol/L (3.5-5.1)
[2021-06-04 07:58] LABS: CALCIUM, SERUM 9.1 mg/dL (8.5-10.1)
[2021-06-04 08:20] LABS: CREATININE 9.8 mg/dL (0.6-1.3)
[2021-06-04 08:23] LABS: PROSTATE SPECIFIC ANTIGEN SCR 1.15 ng/mL (0.00-4.00); THYROID STIMULATING HORMONE 1.356 uIU/mL (0.358-3.74)
[2021-06-04] MEDS: BACLOFEN (10 MG) 10 MG TABLET PO SCH ×3 (10:28→17:00)
[2021-06-04] MEDS: SEVELAMER CARBONATE 800 MG TABLET PO SCH ×3 (10:28→18:00)
[2021-06-04] MEDS ORDERED: MORPHINE SULFATE INJ 2 MG/ML DISP.SYRIN IV ONE (10:30)
[2021-06-04] MEDS ORDERED: SODIUM POLYSTYRENE SULFONATE 15 G/60 ML BOTTLE PO ONE (10:30)
[2021-06-04 12:17] LABS: ABG BASE EXCESS -8.3 mmol/L; ABG OXYGEN SATURATION 97.2 % (92.0-98.5); ABG PCO2 45.5 mmHg (35.0-45.0); ABG PH 7.237 (7.350-7.450); ABG PO2 108.9 mmHg (75.0-100.0); AaDO2 558.6 mmHg; COHb 1.7 % (0.5-1.5); MetHb 0.3 % (0.0-1.5); O2Hb 95.3 % (94.0-97.0); SITE, ABG Left Radial; VENT MODE, BG 15L NRB
--- NOTE | 2021-06-04 12:19 | NUR ---
Dr. avina informed about abnormal ABG, new order received about stat HD. Dr. Avina will coordinate with dialysis nurse, however I inforemd hd nurse about order.
--- NOTE | 2021-06-04 13:00 | NUR ---
FORMWORK CARPENTER TRANSFERRED FROM 3RD FLOOR WITH MONITOR. REPORT RECEIVED FROM Saravanan CONTRERAS RN. PT IN MILD RESP DISTRESS WITH W/ SPO2 94% ON 2L NC. PLACED ON BIPAP BY RT. CALLED FOR STAT HD. Addendum: 06/04/21 at 1344 by KATELYN ROLDAN RN UNABLE TO GIVE PO MEDS DUE BECAUSE OF RESP DISTRESS
--- NOTE | 2021-06-04 13:00 | NUR ---
CHANGE OF CONDITION SECURITY AUDITOR KEILY LEVINE NOTIFIED ME OF A CHANGE IN CONDITION TO MR. LEE. I ENTERED THE ROOM WITH THE RESPIRATORY THERAPISTS PRESENT. THEY STATED PATIENT'S BREATHING RHYTHM IS ABNORMAL SO THEY PLACED A NON REBREATHER MASK ON THE PATIENT. SATURATION WAS 97%. I REPOSITIONED HIM AND THE PATIENT'S BREATHING SEEMED TO HAVE GOTTEN EASIER. RT SUGESTED ABD, SO I OBTAINED AN ORDER. ABG RESULTS SENT TO DR. GIL WHO ORDERED TO TRANSFER PT TO ICU. PT TRANSFERRED WITH ALL PERSONAL BELONGINGS. REPORT GIVEN TO EDUAR GUZMAN RN.
--- NOTE | 2021-06-04 13:20 | NUR ---
pt. is awake and follow commands placed into bipap due to increased work of breathing. bipap settings below as ordered: ipap: 15 epap: 5 rate: 12 fio2 28% breath sounds clear bilateral spo2 96 - 98% Addendum: 06/04/21 at 1323 by KATTY HUERTA RT Amended: Links added.
--- NOTE | 2021-06-04 15:00 | NUR ---
RN/ICU-RECE[facility], PT. SLEEPING W/ ONGOING HD VIA LEFT AVFISTULA.EKG ST, HR-102,BP-105/64. ON BIPAP W/ SETTINGS 15/5, RATE-12, FIO2-28%,SATS.-97%, RR-18/MIN.,NO S/S OF PAIN OR DISTRESS.
[2021-06-04] MEDS: IPRATROPIUM NEB FS 0.5 MG/2.5 ML AMPUL.NEB NEB SCH ×3 (15:48→23:35)
--- NOTE | 2021-06-04 15:50 | NUR ---
placed mepilex between bipap mask and skin in nose bridge to prevent sore. Addendum: 06/04/21 at 1553 by KATTY HUERTA RT Amended: Links added.
--- NOTE | 2021-06-04 16:40 | NUR ---
RN/ICU-HD DONE 2L NET LOSS
[2021-06-04] MEDS: ATORVASTATIN 40 MG TABLET PO SCH (17:24)
--- NOTE | 2021-06-04 17:25 | NUR ---
RN/ICU-RENAGEL AND BACLOFEN NOT GIVEN, PT. LETHARGIC AND ON BIPAP.
--- NOTE | 2021-06-04 17:27 | NUR ---
RN/ICU-PT. CONTINUE TO SATURATE 97%, RT HERE AND PLACED PT. ON 2L/NC, WILL CHECK ABG AND REFER ACCORDINGLY TO MD PER PROTOCOL.
--- NOTE | 2021-06-04 17:28 | NUR ---
pt. placed into nasal cannula @ 2 lpm o2 flow. no increased work of breathing. spo2 98% RR 12 bpm hr 101 bpm Addendum: 06/04/21 at 1730 by KATTY HUERTA RT Amended: Links added.
[2021-06-04] MEDS: MORPHINE SULFATE INJ 4 MG/ML DISP.SYRIN IV PRN (17:56)
--- NOTE | 2021-06-04 17:56 | NUR ---
RN/ICU-PT. C/O OF GENRALIZED PAIN , ROSARIO, 11/26, MED. W/ MS 4MG SIVP. WILL REASSESS FOR PRN EFFECTIVENESS.
--- NOTE | 2021-06-04 18:03 | NUR ---
RN/ICU-ABG DONE BY RT, RESULTS IN AND RELAYED TO DR. GIL BY PHONE NO NEW ORDERS.WILL KEEP PT. ON 2 L/NC AND WILL REFER ACCORDINGLY.
[2021-06-04 18:06] LABS: ABG BASE EXCESS -3.5 mmol/L; ABG PCO2 35.3 mmHg (35.0-45.0); ABG PO2 73.2 mmHg (75.0-100.0); AaDO2 84.8 mmHg; MetHb 0.3 % (0.0-1.5); O2Hb 92.8 % (94.0-97.0); SITE, ABG Left Radial; VENT MODE, BG 2L NC
--- NOTE | 2021-06-04 18:30 | NUR ---
RN/ICU-FAMILY HERE VISITING PT.
--- NOTE | 2021-06-04 19:10 | NUR ---
RN OPENING NOTES RN OPENING NOTES RECEIVED PATIENT ON BED, AWAKE, A/O X 2, ON NASAL CANULA @ 2LPM SATING AT 96%. RESPIRATORY EVEN AND UNLABORED, NO SOB NOTED. REMAIN AFEBRILE, NO S/S OF DISTRESS NOTED. NOTED WITH SHELLY MIDLINE AND RIGHT HAND #22G IV LINE, INTACT INPLACED. FLUSHED WITH NS, NO INFILTRATION NOTED AT SITE. WITH LEFT FOREARM AV FISTULA FOR HD, NO BLEEDING NOTED AT SITE. ALL SAFETY MEASURE PROVIDED, BED IN LOWEST POSITION, LOCKED. CONTINUE TO MONITOR.
[2021-06-05] VITALS (56 sets, daily range): BP systolic 88–160; BP diastolic 54–104
[2021-06-05] MEDS: MORPHINE SULFATE INJ 4 MG/ML DISP.SYRIN IV PRN ×5 (00:50→20:36)
--- NOTE | 2021-06-05 00:50 | NUR ---
RN NOTES PATIENT COMPLAINT OF 9/10 LEFT HIP PAIN, NON- PHARMACOLOGICAL INTERVENTION PROVIDED, REPOSITION, REDIRECTION, NOT EFFECTIVE AT THIS TIME. MORPHINE 4mg IVP GIVEN, BP-122/63, RR- 15, PULSE 100.
[2021-06-05] MEDS: IPRATROPIUM NEB FS 0.5 MG/2.5 ML AMPUL.NEB NEB SCH ×6 (03:55→23:22)
[2021-06-05 04:04] LABS: BASOPHILS % (AUTO) 0.3 % (0.0-2.0); EOSINOPHILS % (AUTO) 0.2 % (0.0-6.0); HEMATOCRIT 33 % (39-51); HEMOGLOBIN 10.6 g/dL (13.5-17.5); LYMPHOCYTES # (AUTO) 0.5 K/uL (0.8-4.8); LYMPHOCYTES % (AUTO) 11.2 % (20.0-44.0); MEAN CORPUSCULAR HGB CONC 33 g/dl (31.0-36.0); MEAN CORPUSCULAR VOLUME 88 fL (80-96); MONOCYTES # (AUTO) 0.4 K/uL (0.1-1.30); MONOCYTES % (AUTO) 8.9 % (2.0-12.0); NEUTROPHILS # (AUTO) 3.7 K/uL (1.8-8.9); NEUTROPHILS % (AUTO) 79.4 % (43.0-81.0); PLATELET COUNT (AUTO) 195 K/uL (150-450); RED BLOOD CELL COUNT(AUTO) 3.69 MIL/uL (4.5-6.0); WHITE BLOOD COUNT (AUTO) 4.7 K/uL (4.3-11.0)
[2021-06-05 04:22] LABS: CREATININE 6.4 mg/dL (0.6-1.3); MAGNESIUM 2.3 mg/dL (1.8-2.4); PHOSPHORUS 6.5 mg/dL (2.5-4.9); POTASSIUM 4.5 mmol/L (3.5-5.1)
--- NOTE | 2021-06-05 05:05 | NUR ---
RN NOTES PATIENT COMPLAINT OF 9/10 LEFT HIP PAIN, NON- PHARMACOLOGICAL INTERVENTION PROVIDED, REPOSITION, REDIRECTION, NOT EFFECTIVE AT THIS TIME. MORPHINE 4mg IVP GIVEN, BP-141/78, RR- 14, PULSE 101.
--- NOTE | 2021-06-05 06:28 | NUR ---
RN NOTES PATIENT REMAIN STABLE THROUGH OUT THE SHIFT. RESPIRATORY EVEN AND UNLABORED, NO SOB NOTED. REMAIN AFEBRILE, NO S/S OF DISTRESS NOTED. LEFT FOREARM AV FISTULA FOR HD, NO BLEEDING NOTED AT SITE. ALL SAFETY MEASURE PROVIDED, BED IN LOWEST POSITION, LOCKED. ENDORSED TO NEXT SHIFT.
--- NOTE | 2021-06-05 07:00 | NUR ---
RN NOTES RECEIVED PATIENT ON BED, AWAKE, A/O X 1, ON NASAL CANULA @ 2LPM SATING AT 96%. RESPIRATORY EVEN AND UNLABORED, NO SOB NOTED. NOTED WITH SHELLY MIDLINE AND RIGHT HAND #22G IV LINE, INTACT INPLACED. FLUSHED WITH NS, NO INFILTRATION NOTED AT SITE. WITH LEFT FOREARM AV FISTULA FOR HD, SR UP x3 , CALL LIGHT WITHIN EASY REACH, ALL SAFETY MEASURE PROVIDED, BED IN LOWEST POSITION, LOCKED. CONTINUE TO MONITOR.
[2021-06-05] MEDS: SEVELAMER CARBONATE 800 MG TABLET PO SCH ×4 (08:00→17:03)
[2021-06-05 08:07] LABS: IMMUNOGLOBULIN A, SERUM 113 mg/dL (90-386); IMMUNOGLOBULIN G, SERUM 1293 mg/dL (603-1613); IMMUNOGLOBULIN M, SERUM 87 mg/dL (20-172)
[2021-06-05] MEDS: BACLOFEN (10 MG) 10 MG TABLET PO SCH ×3 (08:20→17:05)
[2021-06-05 10:08] LABS: *SPE ALPHA-1-GLOBULIN 0.5 g/dL (0.0-0.4); *SPE BETA GLOBULIN 0.9 g/dL (0.7-1.3); *SPE M-SPIKE Not Observed g/dL (Not Observed)
[2021-06-05] MEDS ORDERED: IV NS 0.9% 250 ML IV ONE (11:06)
[2021-06-05] MEDS ORDERED: CT SWABBABLE VALVE TRANS SET 1 EA INFUS.SET MC ONE (11:06)
[2021-06-05] MEDS ORDERED: IOHEXOL-300 100 ML VIAL IV ONE (11:06)
[2021-06-05 11:42] LABS: ABG BASE EXCESS -2.3 mmol/L; ABG OXYGEN SATURATION 93.3 % (92.0-98.5); ABG PCO2 38.3 mmHg (35.0-45.0); ABG PH 7.385 (7.350-7.450); ABG PO2 71.3 mmHg (75.0-100.0); AaDO2 54.2 mmHg; COHb 0.4 % (0.5-1.5); MetHb 0.3 % (0.0-1.5); O2Hb 92.6 % (94.0-97.0); SITE, ABG Right Radial; VENT MODE, BG 1 liter nasal cannula
--- NOTE | 2021-06-05 13:00 | NUR ---
RN NOTES PT RECEIVING HD AT THIS TIME , CONTINUE TO MONITOR.
[2021-06-05] MEDS: ATORVASTATIN 40 MG TABLET PO SCH (17:05)
--- NOTE | 2021-06-05 18:13 | NUR ---
RN NOTES NO SIGNIFCANT CHANGES NOTED ON THIS SHIFT, PT SCREAMS OUT AT TIMES, REFUSED TO EAT AND GET TURN AND REPOSITION , PT RECEIVED HD ON THIS SHIFT, VSS STABLE , SR UP x3, CALL LIGHT WITHIN EASY REACH, WILL ENDORSE TO ELECTRICIAN JOURNEYMAN WIREMAN NURSE FOR CONTINUITY OF CARE .
--- NOTE | 2021-06-05 20:41 | NUR ---
FUR TRAPPER-SPOKE TO FAMILY REGARDING FAMILY CONCERN FOR PT. CONDITION AND IMPENDING TESTS/PROCEDURE. WILL NOTIFY MD IN THE MORNING. FOLLOWED UP W/ XRAY DEPARTMENT DELILAH REGARDING PT. OK TO HAVE NM BONE SCAN AND MRI LEFT FEMUR. SAME WILL NOTIFY TECH FOR POSSIBLE PROCEDURE TO BE DONE CHARLES.
--- NOTE | 2021-06-05 22:04 | NUR ---
CORRECTIONS CASEWORKER. RECEIVED THE PT REST IN BED, AWAKE, ALERT FOLLOW COMMANDS. DEALER ACCOUNTS INVESTIGATOR SHOWING S TACH. OXYGEN 2L VIA NASAL CANNULA. SAT 93%, TEMPERATURE IS 99.4 .HOB ELEVATED. PT IS ANURIC. IV RT UPPER ARM MID LINE. LT HAND AV FISTULA. PT C/O DIFFICULT TO SWALLOW. NOTIFIED MD DHALIWAL. . TOMORROW POSSIBLE SWALLOW EVALUATION.
--- NOTE | 2021-06-05 22:23 | NUR ---
PLASMA PROCESSOR. PT TRANSFER TO TELE ROOM 115, BED 1. REPORT GIVEN TO CORDELL IBARRA. PT IS STABLE. MRI AND BONE SCAN PENDING
[2021-06-05] MEDS ORDERED: ZOLPIDEM TARTRATE 5 MG TABLET PO PRN (22:30)
--- NOTE | 2021-06-05 23:00 | NUR ---
RN NOTE RECEIVED PATIENT FROM ICU ALERT ORIENTED X2 VERBALLY RESPONSIVE,BILATERAL LOWER EXTREMITIES CONTRACTED ON 2L OXYGEN VIA NASAL CANNULA,O2:92%,VITAL SIGN IS BP 123/83 HR 108 TEMP 100.4 RR 16. IV SITE IS ON RIGHT UPPER ARM MIDLINE INTACT PATENT AND LEFT AV SHUNT,SAFETY MEASURE IMPLEMENT BED IN LOW POSITION AND LOCKED, HEAD OF THE BED ELEVATED,CALL LIGHT WITHIN REACH CONTINUE TO MONITOR.
--- NOTE | 2021-06-05 23:05 | NUR ---
RN NOTE TEMP 100.4 STARTING COOL MEASURE,PT NOT TOLERATE PO MEDS CONTINUE TO MONITOR.
[2021-06-05 23:20] LABS: BASOPHILS % (AUTO) 0.9 % (0.0-2.0); EOSINOPHILS % (AUTO) 0.6 % (0.0-6.0); HEMATOCRIT 33 % (39-51); HEMOGLOBIN 10.6 g/dL (13.5-17.5); LYMPHOCYTES # (AUTO) 0.6 K/uL (0.8-4.8); LYMPHOCYTES % (AUTO) 14.2 % (20.0-44.0); MEAN CORPUSCULAR HGB CONC 32 g/dl (31.0-36.0); MEAN CORPUSCULAR VOLUME 88 fL (80-96); MONOCYTES # (AUTO) 0.6 K/uL (0.1-1.30); MONOCYTES % (AUTO) 13.2 % (2.0-12.0); NEUTROPHILS # (AUTO) 3.1 K/uL (1.8-8.9); NEUTROPHILS % (AUTO) 71.1 % (43.0-81.0); PLATELET COUNT (AUTO) 220 K/uL (150-450); RED BLOOD CELL COUNT(AUTO) 3.76 MIL/uL (4.5-6.0); WHITE BLOOD COUNT (AUTO) 4.3 K/uL (4.3-11.0)
[2021-06-05 23:43] LABS: MAGNESIUM 2.3 mg/dL (1.8-2.4); PHOSPHORUS 5.9 mg/dL (2.5-4.9)
[2021-06-06] VITALS (7 sets, daily range): BP systolic 90–152; BP diastolic 50–83
--- NOTE | 2021-06-06 | NUR ---
RN NOTE TEMP IS 99.3 CONTINUE TO MONITOR.
[2021-06-06] MEDS: IPRATROPIUM NEB FS 0.5 MG/2.5 ML AMPUL.NEB NEB SCH ×6 (03:47→23:10)
--- NOTE | 2021-06-06 06:37 | NUR ---
RN NOTE PATIENT REMAINS ON ALERT ORIENTED X2 VERBALLY RESPONSIVE ON 2L OXYGEN O2:100% NO SOB NOT ACUTE DISTRESS NOTED,ENDORSE NEXT COMING SHIFT FOR CONTINUATION OF CARE
[2021-06-06 06:44] LABS: BASOPHILS % (AUTO) 0.5 % (0.0-2.0); HEMATOCRIT 32 % (39-51); HEMOGLOBIN 10.5 g/dL (13.5-17.5); LYMPHOCYTES # (AUTO) 0.7 K/uL (0.8-4.8); LYMPHOCYTES % (AUTO) 18.9 % (20.0-44.0); MEAN CORPUSCULAR HGB CONC 32 g/dl (31.0-36.0); MEAN CORPUSCULAR VOLUME 89 fL (80-96); MONOCYTES # (AUTO) 0.6 K/uL (0.1-1.30); MONOCYTES % (AUTO) 14.4 % (2.0-12.0); NEUTROPHILS # (AUTO) 2.5 K/uL (1.8-8.9); NEUTROPHILS % (AUTO) 65.2 % (43.0-81.0); PLATELET COUNT (AUTO) 203 K/uL (150-450); RED BLOOD CELL COUNT(AUTO) 3.64 MIL/uL (4.5-6.0); WHITE BLOOD COUNT (AUTO) 3.8 K/uL (4.3-11.0)
[2021-06-06 07:10] LABS: CALCIUM, SERUM 9.1 mg/dL (8.5-10.1); CREATININE 5.4 mg/dL (0.6-1.3); MAGNESIUM 2.3 mg/dL (1.8-2.4); PHOSPHORUS 6.1 mg/dL (2.5-4.9); POTASSIUM 4.1 mmol/L (3.5-5.1)
--- NOTE | 2021-06-06 07:34 | NUR ---
advanced practice rn OPENING NOTES: RECEIVED PATIENT ON BED, AWAKE, A/O X 2, ON NASAL CANULA @ 2LPM SATING AT 96%. RESPIRATORY EVEN AND UNLABORED, NO SOB NOTED. REMAIN AFEBRILE, NO S/S OF DISTRESS NOTED. NOTED WITH SHELLY MIDLINE AND RIGHT HAND #22G IV LINE, INTACT INPLACED. FLUSHED WITH NS, NO INFILTRATION NOTED AT SITE. WITH LEFT FOREARM AV FISTULA FOR HD, NO BLEEDING NOTED AT SITE. ALL SAFETY MEASURE RENDERED,BED IN LOW AND LOCKED POSITION, CALL LIGHT WITHIN REACH
[2021-06-06] MEDS: MORPHINE SULFATE INJ 4 MG/ML DISP.SYRIN IV PRN (08:30)
[2021-06-06] MEDS: SEVELAMER CARBONATE 800 MG TABLET PO SCH ×3 (08:30→17:56)
[2021-06-06] MEDS: BACLOFEN (10 MG) 10 MG TABLET PO SCH ×3 (08:30→17:56)
--- NOTE | 2021-06-06 10:00 | NUR ---
rn notes: SEEN BY ST, WITH NO PROBLEM SWALLOWING, PATIENT NOTED VOMITING AFTER HE SWALLOW THE JELLO. NO SIGNS OF ASPIRATION, DR MILTON BURRIS MADE AWARE
[2021-06-06] MEDS: ONDANSETRON HCL/PF 4 MG/2 ML VIAL IVP PRN (15:44)
--- NOTE | 2021-06-06 16:00 | NUR ---
rn notes: charmaine from nuclear medicine came asked patient with tanzanian speaking nurse if he is ok to have nuclear medicine bone scan done he needs to move his legs straight and be transferred to the scan bed, he agreed saying he will be ok, sister at bedside made aware
[2021-06-06] MEDS: ATORVASTATIN 40 MG TABLET PO SCH (17:56)
[2021-06-06] MEDS: HYDROCODONE/APAP 5/325MG TABLET PO PRN (17:59)
--- NOTE | 2021-06-06 19:00 | NUR ---
television maintenance man closing notes: nuclear physician came to take patient for nuclear medicine bone scan, sister at bedside, operation shift supervisor charge nurse said she will accompany the patient, report given to night RN, pt was refusing morphine saying maikung him very confused and crazy, DR shoemaker made aware and gave order to discontinued morphine and start norco as needed for pain, pt on nasal cannula at 2 L/Min,no SOB noted, all medicine given as ordered, pt request to crush his medicine saying he is unable to swallow the pills,
--- NOTE | 2021-06-06 19:24 | NUR ---
RN NOTE PATIENT TAKEN BY REPORT MANAGER FOR BONE SCAN, ACCOMPANIED BY CHARGE NURSE, IN STABLE CONDITION. ACLS PROTOCOL OBSERVED.
--- NOTE | 2021-06-06 20:00 | NUR ---
RN NOTE RECEIVED PATIENT FROM RADIOLOGY. ACCOMPANIED BY CHARGE NURSE, RN. FAMILY AT BEDSIDE. PATIENT IS AOX4. [place] SPEAKING. BREATHING EVEN AND UNLABORED. ON 2L/MIN VIA NASAL CANNULA. NO S/S OF RESPIRATORY DISTRESS. DENIES CHEST PAIN. SKIN WARM AND DRY. NOTED WITH RIGHT UPPER ARM MIDLINE, RIGHT HAND 22G. NO IVF. LEFT UPPER ARM AV FISTULA. POSITIVE THRILL/BRUIT. NO BLEEDING FROM SITE. COVERED WITH GAUZE DRESSING. PATIENT WITH OBVIOUS PAIN ON LEFT LEG. GENTLY ASSISTED WITH TURNING AND REPOSITIONING. PER PATIENT AND FAMILY. PATIENT REFUSES TO HAVE STRONGER PAIN MEDICATION. NO BLEEDING/REDNESS AT SITE. BED LOW, IN LOCKED POSITION. CALL LIGHT WITHIN REACH.
--- NOTE | 2021-06-06 20:29 | NUR ---
NM:WB BONE SCAN WAS COMPLETED
[2021-06-07] VITALS: BP 126/78
[2021-06-07] MEDS: IPRATROPIUM NEB FS 0.5 MG/2.5 ML AMPUL.NEB NEB SCH ×6 (03:24→23:19)
[2021-06-07 04:00] VITALS: BP 140/79
[2021-06-07] MEDS: HYDROCODONE/APAP 5/325MG TABLET PO PRN ×5 (05:59→23:43)
--- NOTE | 2021-06-07 06:38 | NUR ---
RN NOTE TRIED TO OBTAIN CONSENT FOR MRI FEMUR WITH/WITHOUT CONTRAST FROM PATIENT. HOWEVER, PATIENT WAS AOX2-3. UNABLE TO MAINTAIN CONCENTRATION DUE TO PAIN IN LEFT THIGH. CONTACTED SISTER, CHEYANNE, TO OBTAIN TELEPHONE CONSENT. ITALIAN SPEAKING ONLY. STACEY LADD, ABLE TO EXPLAIN PURPOSE AND ANSWER QUESTIONS TO CHEYANNE IN ITALIAN. HOWEVER, WAS UNABLE TO OBTAIN TELEPHONE CONSENT, PER CHEYANNE, HER BROTHER, ENA, WILL VISIT AT 8 AM AND SUGGEST TO HAVE CONSENT SIGNED AT THAT TIME.
[2021-06-07 07:04] LABS: *ANA ANTI-CENTROMERE B AB <0.2 AI (0.0-0.9); *ANA ANTI-DNA(DS) AB, QN <1 IU/mL (0-9); *ANA ANTI-JO-1 <0.2 AI (0.0-0.9); *ANA ANTICHROMATIN ANTIBODY <0.2 AI (0.0-0.9); *ANA RNP ANTIBODIES <0.2 AI (0.0-0.9); *ANA SJOGREN'S ANTI-SS-A <0.2 AI (0.0-0.9); *ANA SJOGREN'S ANTI-SS-B <0.2 AI (0.0-0.9); *ANAANTI-SCLERODERMA-70 AB <0.2 AI (0.0-0.9); *ANASMITH AB <0.2 AI (0.0-0.9)
--- NOTE | 2021-06-07 07:10 | NUR ---
RN OPENING NOTES: RECEIVED PATIENT IN BED AWAKE ALERT X 2 WITH PERIODS OF CONFUSION, C/O OF PAIN, OFFERED PAIN MEDICINE HE SAID HE HAS NAUSEA, TOLD HIM WILL PREPARE ZOFRAN AND WAIT TO GIVE PAIN MEDICINE, SAID DOES NOT WANT MORPHINE IT MAKE HIM CRAZY,RESPIRATION IS EVEN AND UNLABORED, NO SOB NOTED ON 2 LITER OXYGEN VIA NASAL CANULA, RIGHT UPPER ARM MIDLINE PATENT AND FLUSHED WELL WITH NORMAL SALINE, BED IN LOW AND LOCKED POSITION, CALL LIGHT WITHIN REACH.WILL MONITOR THE PATIENT
[2021-06-07] MEDS: ONDANSETRON HCL/PF 4 MG/2 ML VIAL IVP PRN ×2 (07:23→18:38)
[2021-06-07 08:00] VITALS: BP 130/78
[2021-06-07] MEDS: SEVELAMER CARBONATE 800 MG TABLET PO SCH ×3 (08:11→17:57)
[2021-06-07] MEDS: BACLOFEN (10 MG) 10 MG TABLET PO SCH ×3 (08:32→17:57)
--- NOTE | 2021-06-07 09:20 | NUR ---
RN NOTES: MRI TECHNICHIAN CAME ASKED PATIENT IF HE IS READY FOR THE PROCEDURE HE SAID HE IS IN TOO MUCH PAIN ASKING FOR TYLENOL, TOLD HIM HE RECEIVED [facility] WHICH CONTAIN TYLENOL HE SAID LATER, ALSO THEY CAN NOT DO WITH CONTRAST DUE TO LOW GFR,RONNIE ENTRY LEVEL LAB TECHNICIAN ORDERED STAT BMP AND WILL FOLLOW UP WITH NEPHROLOGY IF HE IS OK TO CLEAR HIM TO DO THE PROCEDURE SHE DOES NOT WANT TO DO MRI WITHOUT CONTRAST, BROTHER ENA AT BEDSIDE AWARE
[2021-06-07] MEDS ORDERED: HYDROMORPHONE INJ 2 MG/ML DISP.SYRIN IV PRN (10:30)
--- NOTE | 2021-06-07 10:30 | NUR ---
rn notes: seen by Juana LOERA, made aware of pt continue to c/o of severe pain, also pt continue to complain difficulty swallowing, also refusing to eat or dink at all,new order placed for dilaudid PRN severe pain, encourage pt to eat, per DR Bashir MRI to be done tomorrow will follow up
[2021-06-07 10:31] LABS: CALCIUM, SERUM 8.9 mg/dL (8.5-10.1); CREATININE 4.6 mg/dL (0.6-1.3); POTASSIUM 4.1 mmol/L (3.5-5.1)
[2021-06-07 12:00] VITALS: BP 91/50
[2021-06-07] MEDS: ACETAMINOPHEN 325 MG TABLET PO PRN (13:18)
[2021-06-07 16:00] VITALS: BP 91/50
[2021-06-07] MEDS ORDERED: NEPRO VAN 237 ML CAN PO PRN (16:30)
--- NOTE | 2021-06-07 17:50 | NUR ---
rn notes: spoke to leon Carrillo Np patient is requesting medicine for gas pain with order of simethicone 80 mg 1 tab every 6 hours as needed for gas pain, pt and brother made aware
[2021-06-07] MEDS: ATORVASTATIN 40 MG TABLET PO SCH (17:57)
[2021-06-07] MEDS: SIMETHICONE 80 MG TAB.CHEW PO PRN (17:57)
--- NOTE | 2021-06-07 18:42 | NUR ---
RN notes: pt and brother said pt vomited x 1 small amount, zofran given to pt , encourage to wait at least 10 minutes and start drinking nepro
--- NOTE | 2021-06-07 19:20 | NUR ---
RN closing notes PATIENT IS AOX2 BULGARIAN SPEAKING. BREATHING EVEN AND UNLABORED. ON 2L/MIN VIA NASAL CANNULA. NO S/S OF RESPIRATORY DISTRESS. DENIES CHEST PAIN. SKIN WARM AND DRY. NOTED WITH RIGHT UPPER ARM MIDLINE, RIGHT HAND 22G. NO IVF. LEFT UPPER ARM AV FISTULA. POSITIVE THRILL/BRUIT. NO BLEEDING FROM SITE. COVERED WITH GAUZE DRESSING. PATIENT WITH OBVIOUS PAIN ON LEFT LEG. GENTLY ASSISTED WITH TURNING AND REPOSITIONING. PER PATIENT AND FAMILY. PATIENT REFUSES TO HAVE STRONGER PAIN MEDICATION. NO BLEEDING/REDNESS AT SITE. BED LOW, IN LOCKED POSITION. CALL LIGHT WITHIN REACH.
[2021-06-07 20:00] VITALS: BP 137/85
[2021-06-08] VITALS: BP 109/62
[2021-06-08] MEDS: ONDANSETRON HCL/PF 4 MG/2 ML VIAL IVP PRN ×2 (01:09→21:55)
[2021-06-08] MEDS: HYDROMORPHONE 1 MG/1 ML DISP.SYRIN IV PRN ×2 (01:09→20:34)
[2021-06-08] MEDS: IPRATROPIUM NEB FS 0.5 MG/2.5 ML AMPUL.NEB NEB SCH ×5 (03:19→20:35)
[2021-06-08 04:00] VITALS: BP 96/70
--- NOTE | 2021-06-08 06:35 | NUR ---
STOPE MINER NOTES AWAKE & RESPONSIVE. NOT IN ANY DISTRESS. NO SOB NOTED. DENIES ANY PAIN OR DISCOMFORT AT THIS TIME. ON TELE SR @ 90 WITH IVF INFUSING WELL. PT REFUSING TO BE REPOSITIONED THE WHOLE NIGHT. PT ALSO REFUSED MORNING CARE. EXPLAINED TO P T IMPORTANCE OF TURNING AND AM CARE IN HIS POC BUT PT STILL REFUSED. MONITORED ACCORDINGLY. CALL LIGHT WITHIN REACH. BED IN LOWEST POSITION. SR UP X 3 WITH BED ALARM ON FOR SAFETY. WILL ENDORSE TO NEXT SHIFT.
[2021-06-08 07:00] LABS: BASOPHILS % (AUTO) 0.6 % (0.0-2.0); EOSINOPHILS % (AUTO) 3.1 % (0.0-6.0); HEMATOCRIT 32 % (39-51); HEMOGLOBIN 10.4 g/dL (13.5-17.5); LYMPHOCYTES % (AUTO) 19.7 % (20.0-44.0); MEAN CORPUSCULAR HGB CONC 33 g/dl (31.0-36.0); MEAN CORPUSCULAR VOLUME 89 fL (80-96); MONOCYTES # (AUTO) 0.8 K/uL (0.1-1.30); MONOCYTES % (AUTO) 15.7 % (2.0-12.0); NEUTROPHILS # (AUTO) 3.1 K/uL (1.8-8.9); NEUTROPHILS % (AUTO) 60.9 % (43.0-81.0); PLATELET COUNT (AUTO) 204 K/uL (150-450); RED BLOOD CELL COUNT(AUTO) 3.58 MIL/uL (4.5-6.0)
[2021-06-08 07:19] LABS: CALCIUM, SERUM 8.7 mg/dL (8.5-10.1); CREATININE 5.6 mg/dL (0.6-1.3); POTASSIUM 4.5 mmol/L (3.5-5.1)
[2021-06-08] MEDS: SEVELAMER CARBONATE 800 MG TABLET PO SCH ×3 (07:58→17:30)
[2021-06-08 08:00] VITALS: BP 108/67
--- NOTE | 2021-06-08 08:01 | NUR ---
RN OPENING NOTES: PATIENT ENDORSED BY OUTGOING NURSE FOR CONTINUITY OF CARE. RECEIVED PATIENT IN BED AWAKE ALERT X 2 WITH PERIODS OF CONFUSION, RESPIRATION IS EVEN AND UNLABORED, NO SOB NOTED ON 2 LITER OXYGEN VIA NASAL CANULA, RIGHT UPPER ARM MIDLINE PATENT AND FLUSHED WELL WITH NORMAL SALINE, AND LEFT FOREARM FISTULA. BED IN LOW AND LOCKED POSITION, CALL LIGHT WITHIN REACH.WILL MONITOR THE PATIENT.
[2021-06-08] MEDS: BACLOFEN (10 MG) 10 MG TABLET PO SCH ×3 (09:16→17:30)
[2021-06-08 09:35] LABS: ABG BASE EXCESS -2.2 mmol/L; ABG OXYGEN SATURATION 94.1 % (92.0-98.5); ABG PCO2 40.1 mmHg (35.0-45.0); ABG PH 7.373 (7.350-7.450); ABG PO2 74.2 mmHg (75.0-100.0); COHb 0.6 % (0.5-1.5); MetHb 0.3 % (0.0-1.5); O2Hb 93.3 % (94.0-97.0); SITE, ABG Right Radial; VENT MODE, BG 3 LPM NC
[2021-06-08 12:00] VITALS: BP 108/67
[2021-06-08] MEDS: HYDROCODONE/APAP 5/325MG TABLET PO PRN (12:53)
[2021-06-08] MEDS ORDERED: GADOTERATE MEGLUMINE 10 MMOL/20 ML VIAL IV ONE (13:48)
[2021-06-08 16:00] VITALS: BP 97/67
[2021-06-08] MEDS: ATORVASTATIN 40 MG TABLET PO SCH (17:30)
--- NOTE | 2021-06-08 19:30 | NUR ---
LAND MOBILE RADIO TECHNICIAN OPENING NOTE RECEIVED PATIENT AWAKE IN BED. A/O X2-3. FAMILY AT BEDSIDE. PT ON O2 @ 2LPM VIA NC. O2 SATURATION 99%. NO SOB OR S/S OF RESPIRATORY DISTRESS NOTED. BREATHING EVEN AND UNLABORED. ON EXTERNAL NUCLEAR EQUIPMENT TEST ENGINEER READING ST 103 BPM. IV ACCESS SHELLY ML AND R HAND 22 GAUGE SL, INTACT AND PATENT. LFA AV FISTULA, INTACT, NO S/S OF BLEEDING. SAFETY PRECAUTIONS IN PLACE. BED IN LOWEST LOCKED POSITION, HOB ELEVATED, SIDE RAILS UP X2, AND CALL LIGHT AND TABLE WITHIN REACH. ALL NEEDS MET AT THIS TIME.
[2021-06-08 20:00] VITALS: BP 113/61
--- NOTE | 2021-06-08 20:23 | NUR ---
RN closing notes PATIENT IS AOX2 SINHALA SPEAKING. BREATHING EVEN AND UNLABORED. ON 2L/MIN VIA NASAL CANNULA. NO S/S OF RESPIRATORY DISTRESS. DENIES CHEST PAIN. SKIN WARM AND DRY. NOTED WITH RIGHT UPPER ARM MIDLINE, RIGHT HAND 22G. NO IVF. LEFT UPPER ARM AV FISTULA. POSITIVE THRILL/BRUIT. NO BLEEDING FROM SITE. COVERED WITH GAUZE DRESSING. PATIENT WITH OBVIOUS PAIN ON LEFT LEG. GENTLY ASSISTED WITH TURNING AND REPOSITIONING. PER PATIENT AND FAMILY. PATIENT REFUSES TO HAVE STRONGER PAIN MEDICATION. NO BLEEDING/REDNESS AT SITE. BED LOW, IN LOCKED POSITION. CALL LIGHT WITHIN REACH.
--- NOTE | 2021-06-08 20:34 | NUR ---
RN NOTE PT COMPLAINING OF PAIN 10/10 OF THE LEFT LEG. ADMINISTERED DILAUDID 1 MG FOR SEVERE PAIN ORDERED. ATTEMPTED TO MAKE PT COMFORTABLE IN BED BUT PT REFUSED TURNING AND REPOSITIONING. ALL NEEDS MET AT THIS TIME.
--- NOTE | 2021-06-08 21:55 | NUR ---
RN NOTE PT HAD ONE EPISODE OF EMESIS. ADMINISTERED ZOFRAN 4 MG FOR NAUSEA/VOMITING ORDERED. PT CLEANED UP AND MADE COMFORTABLE. ALL NEEDS MET AT THIS TIME.
[2021-06-09] VITALS: BP 138/77
[2021-06-09] MEDS: IPRATROPIUM NEB FS 0.5 MG/2.5 ML AMPUL.NEB NEB SCH ×7 (00:17→23:53)
[2021-06-09 04:00] VITALS: BP 115/61
[2021-06-09 06:34] LABS: BASOPHILS % (AUTO) 0.4 % (0.0-2.0); CALCIUM, SERUM 9.2 mg/dL (8.5-10.1); CREATININE 4.4 mg/dL (0.6-1.3); EOSINOPHILS % (AUTO) 2.4 % (0.0-6.0); HEMATOCRIT 31 % (39-51); HEMOGLOBIN 10.1 g/dL (13.5-17.5); LYMPHOCYTES # (AUTO) 0.6 K/uL (0.8-4.8); LYMPHOCYTES % (AUTO) 14.1 % (20.0-44.0); MAGNESIUM 2.2 mg/dL (1.8-2.4); MEAN CORPUSCULAR HGB CONC 33 g/dl (31.0-36.0); MEAN CORPUSCULAR VOLUME 88 fL (80-96); MONOCYTES # (AUTO) 0.4 K/uL (0.1-1.30); MONOCYTES % (AUTO) 10.6 % (2.0-12.0); NEUTROPHILS % (AUTO) 72.5 % (43.0-81.0); PHOSPHORUS 5.3 mg/dL (2.5-4.9); PLATELET COUNT (AUTO) 199 K/uL (150-450); POTASSIUM 3.8 mmol/L (3.5-5.1); RED BLOOD CELL COUNT(AUTO) 3.46 MIL/uL (4.5-6.0); WHITE BLOOD COUNT (AUTO) 4.2 K/uL (4.3-11.0)
--- NOTE | 2021-06-09 06:44 | NUR ---
RN NOTE PT REFUSED COMPLETE LINEN CHANGE. PT STARTED CRYING STATING "NO, NO, NO," WHEN ASKED IF WE MAY CHANGE THE BOTTOM SHEETS. EXPLAINED THE IMPORTANCE OF LINEN CHANGES BUT THE PT STILL REFUSED. PT DID NOT URINATE OR HAVE A BM. GAVE PT BED BATH AND CHANGED GOWN AND TOP SHEET. MADE COMFORTABLE IN BED. ALL NEEDS MET AT THIS TIME.
--- NOTE | 2021-06-09 06:52 | NUR ---
SLURRY CONTROL TENDER CLOSING NOTE PATIENT AWAKE IN BED. A/O X2-3. PT ON O2 @ 2LPM VIA NC. O2 SATURATION 96%. NO SOB OR S/S OF RESPIRATORY DISTRESS NOTED. BREATHING EVEN AND UNLABORED. ON EXTERNAL LIFTER READING SR 84 BPM. IV ACCESS SHELLY ML AND R HAND 22 GAUGE SL, INTACT AND PATENT. LFA AV FISTULA, INTACT, NO S/S OF BLEEDING. PT REFUSED TURNING AND REPOSITIONING AND COMPLETE LINEN CHANGE. EXPLAINED BENEFITS BUT PATIENT STILL REFUSED. SAFETY PRECAUTIONS IN PLACE AT ALL TIMES. BED IN LOWEST LOCKED POSITION, HOB ELEVATED, SIDE RAILS UP X2, AND CALL LIGHT AND TABLE WITHIN REACH. ALL NEEDS MET AT THIS TIME. WILL ENDORSE TO ONCOMING NURSE FOR ALBERTO.
--- NOTE | 2021-06-09 07:39 | NUR ---
INSURANCE ACCOUNT EXECUTIVE OPENING NOTE RECEIVED PATIENT AWAKE IN BED. A/O X2-3. FAMILY AT BEDSIDE. PT ON O2 @ 2LPM VIA NC. O2 SATURATION 99%. NO SOB OR S/S OF RESPIRATORY DISTRESS NOTED. BREATHING EVEN AND UNLABORED. ON EXTERNAL OWNER SPA DIRECTOR READING ST 103 BPM. IV ACCESS SHELLY ML AND R HAND 22 GAUGE SL, INTACT AND PATENT. LFA AV FISTULA, INTACT, NO S/S OF BLEEDING. SAFETY PRECAUTIONS IN PLACE. BED IN LOWEST LOCKED POSITION, HOB ELEVATED, SIDE RAILS UP X2, AND CALL LIGHT AND TABLE WITHIN REACH. ALL NEEDS MET AT THIS TIME.
[2021-06-09] MEDS: SEVELAMER CARBONATE 800 MG TABLET PO SCH ×3 (07:46→18:19)
[2021-06-09 08:00] VITALS: BP 93/66
[2021-06-09] MEDS: BACLOFEN (10 MG) 10 MG TABLET PO SCH ×3 (08:21→16:08)
[2021-06-09 12:00] VITALS: BP 112/65
[2021-06-09] MEDS: NYSTATIN (PYXIS) 500,000 UNIT/5 ML ORAL.SUSP PO SCH ×2 (14:46→16:08)
[2021-06-09 16:00] VITALS: BP 103/62
[2021-06-09] MEDS: HYDROCODONE/APAP 5/325MG TABLET PO PRN (16:15)
[2021-06-09] MEDS: ATORVASTATIN 40 MG TABLET PO SCH (18:19)
--- NOTE | 2021-06-09 18:53 | NUR ---
RN closing notes PATIENT IS AOX3 GREEK SPEAKING. BREATHING EVEN AND UNLABORED. ON 2L/MIN VIA NASAL CANNULA. NO S/S OF RESPIRATORY DISTRESS. DENIES CHEST PAIN. SKIN WARM AND DRY. NOTED WITH RIGHT UPPER ARM MIDLINE, RIGHT ARM MIDLINE. LEFT UPPER ARM AV FISTULA. POSITIVE THRILL/BRUIT. NO BLEEDING FROM SITE. COVERED WITH GAUZE DRESSING. PATIENT HAD CT HEAD AND NECK TODAY, HAS BIOPSY ON FRIDAY CONSENT PROVIDED. GENTLY ASSISTED WITH TURNING AND REPOSITIONING. PER PATIENT AND FAMILY. NO BLEEDING/REDNESS AT SITE. BED LOW, IN LOCKED POSITION. CALL LIGHT WITHIN REACH.
--- NOTE | 2021-06-09 19:20 | NUR ---
RN NOTE RECEIVED PT AWAKE IN BED, WATCHING TV. A/OX2. WITH FAMILY VISITING AT BEDSIDE. PT DENIES ANY PAIN AT THIS TIME. RESPIRATIONS EVEN/UNLABORED. IV ACCESS: SHELLY MIDLINE INTACT/PATENT/FLUSHES WELL. L-FA AV SHUNT WITH GOOD BRUIT/THRILL. TELE MONITOR CURRENTLY READING SR, HR 97. PT IN NO ACUTE DISTRESS. SAFETY MEASURES IN PLACE. WILL CONT TO MONITOR.
[2021-06-09 20:00] VITALS: BP 90/66
[2021-06-09] MEDS ORDERED: OLANZAPINE ZYDIS 5 MG TAB.RAPDIS PO SCH (22:00)
[2021-06-10] VITALS: BP 93/58
[2021-06-10] MEDS: HYDROMORPHONE 1 MG/1 ML DISP.SYRIN IV PRN ×2 (01:49→09:32)
[2021-06-10] MEDS: ONDANSETRON HCL/PF 4 MG/2 ML VIAL IVP PRN (01:50)
[2021-06-10 04:00] VITALS: BP 95/61
[2021-06-10] MEDS: IPRATROPIUM NEB FS 0.5 MG/2.5 ML AMPUL.NEB NEB SCH ×6 (04:08→23:48)
--- NOTE | 2021-06-10 07:25 | NUR ---
RN OPENING NOTE RECEIVED PATIENT IN BED, SLEEPING. RESPIRATIONS EVEN/UNLABORED. NO ANY ACUTE DISTRESS NOTED AT THE TIME. ON TELE MONITOR READING NSR WITH HR OF 84. IV ACCESS: SHELLY MIDLINE INTACT/PATENT/FLUSHES WELL. L-FA AV SHUNT WITH GOOD BRUIT/THRILL. ALL SAFETY MEASURES IN PLACE. BED LOCKED AND IN LOWEST POSITION WITH SIDE RAILS UP. CALL LIGHT WITHIN REACH. WILL CONT TO MONITOR PATIENT ACCORDINGLY.
[2021-06-10 08:00] VITALS: BP 128/68
[2021-06-10] MEDS: SEVELAMER CARBONATE 800 MG TABLET PO SCH ×3 (09:20→17:02)
[2021-06-10] MEDS: BACLOFEN (10 MG) 10 MG TABLET PO SCH ×3 (09:20→17:02)
[2021-06-10] MEDS: NYSTATIN (PYXIS) 500,000 UNIT/5 ML ORAL.SUSP PO SCH ×3 (09:20→17:03)
--- NOTE | 2021-06-10 09:35 | NUR ---
RN NOTE PATIENT SPIT UP SOME OF THE MEDICATION, STATING "NO, NO PUEDO." FAMILY AT BEDSIDE. ALL NEEDS ANTICIPATED. WILL CONTINUE TO MONITOR ACCORDINGLY.
[2021-06-10] MEDS ORDERED: VANCOMYCIN 1 GM in IV D5W 250 ML IV PRN (10:30)
[2021-06-10] MEDS ORDERED: VANCOMYCIN 1 GM in IV D5W 250ml IV ONE (11:00)
[2021-06-10 11:50] LABS: ABG BASE EXCESS -1.3 mmol/L; ABG OXYGEN SATURATION 89.7 % (92.0-98.5); ABG PCO2 43.8 mmHg (35.0-45.0); ABG PH 7.361 (7.350-7.450); ABG PO2 61.2 mmHg (75.0-100.0); AaDO2 115.7 mmHg; COHb 0.6 % (0.5-1.5); MetHb 0.3 % (0.0-1.5); O2Hb 88.9 % (94.0-97.0); SITE, ABG Right Radial; VENT MODE, BG 3L NC
[2021-06-10 12:00] VITALS: BP 112/72
[2021-06-10 12:03] LABS: BASOPHILS % (AUTO) 0.6 % (0.0-2.0); EOSINOPHILS % (AUTO) 3.6 % (0.0-6.0); HEMATOCRIT 33 % (39-51); HEMOGLOBIN 10.9 g/dL (13.5-17.5); LYMPHOCYTES # (AUTO) 1.8 K/uL (0.8-4.8); LYMPHOCYTES % (AUTO) 24.3 % (20.0-44.0); MEAN CORPUSCULAR HGB CONC 33 g/dl (31.0-36.0); MEAN CORPUSCULAR VOLUME 88 fL (80-96); MONOCYTES # (AUTO) 0.7 K/uL (0.1-1.30); NEUTROPHILS # (AUTO) 4.5 K/uL (1.8-8.9); NEUTROPHILS % (AUTO) 61.5 % (43.0-81.0); PLATELET COUNT (AUTO) 197 K/uL (150-450); RED BLOOD CELL COUNT(AUTO) 3.77 MIL/uL (4.5-6.0); WHITE BLOOD COUNT (AUTO) 7.3 K/uL (4.3-11.0)
[2021-06-10] MEDS: PIPERACILLIN /TAZOBACTAM 2.25 G in IV D5W 50 ML IV SCH ×2 (12:45→20:36)
[2021-06-10 12:47] LABS: CALCIUM, SERUM 9.9 mg/dL (8.5-10.1); CREATININE 5.7 mg/dL (0.6-1.3); MAGNESIUM 2.5 mg/dL (1.8-2.4); PHOSPHORUS 5.8 mg/dL (2.5-4.9); POTASSIUM 5.9 mmol/L (3.5-5.1)
--- NOTE | 2021-06-10 12:53 | NUR ---
RN NOTE PATIENT REFUSED ALL NOON PO MEDS. PATIENT REFUSED TO BE REPOSITION AT THE MOMENT STATES "NO, NO, NO PUEDO!. Addendum: 06/10/21 at 1254 by VINCENT BLUE RN FAMILY AT BEDSIDE. ALL SAFETY MEASURES IN PLACE. WILL CONTINUE TO MONITOR PATIENT ACCORDINGLY.
[2021-06-10 16:00] VITALS: BP 103/78
[2021-06-10] MEDS: ATORVASTATIN 40 MG TABLET PO SCH (17:02)
--- NOTE | 2021-06-10 19:30 | NUR ---
RN CLOSING NOTE NO SIGNIFICANT CHANGES THROUGHOUT SHIFT FOR PATIENT. PATIENT AWAKE, ALERT/ORIENTED X 2 WITH PERIODS OF CONFUSION, FAMILY AT BEDSIDE RESPIRATIONS EVEN/UNLABORED. NO ANY ACUTE DISTRESS NOTED AT THE TIME. IV ACCESS: SHELLY MIDLINE INTACT/PATENT/FLUSHES WELL. L-FA AV SHUNT WITH GOOD BRUIT/THRILL. ALL DUE MEDS GIVEN ORDERED. ALL NEEDS ATTENDED. PATIENT REFUSED TO BE CLEANED/ LINEN CHANGE AND REPOSITIONING. NO URINE OUTPUT OR BM NOTED. ALL SAFETY MEASURES IN PLACE. BED LOCKED AND IN LOWEST POSITION WITH SIDE RAILS UP. CALL LIGHT WITHIN REACH. ENDORSE TO GAS LINE INSTALLER NURSE FOR CONTINUITY OF CARE.
[2021-06-10 20:00] VITALS: BP 90/51
--- NOTE | 2021-06-10 20:10 | NUR ---
RN NOTE PATIENT ALERT AND ORIENTED X2 WITH PERIODS OF CONFUSION. ON O2 2L VIA NASAL CANNULA. NO S/S OF RESPIRATORY DISTRESS. IV ACCESS ON SHELLY MIDLINE PATENT AND INTACT. NOTED WITH LEFT FOREARM AV FISTULA. + BRUIT/THRILL. FAMILY AT BEDSIDE. BED LOCKED AND IN LOWEST POSITION. CALL LIGHT WITHIN REACH. ALL NEEDS ANTICIPATED.
[2021-06-10] MEDS: ACETAMINOPHEN 325 MG TABLET PO PRN (21:14)
[2021-06-11] VITALS: BP 90/51
[2021-06-11] MEDS: IPRATROPIUM NEB FS 0.5 MG/2.5 ML AMPUL.NEB NEB SCH ×7 (03:07→23:30)
[2021-06-11 04:00] VITALS: BP 91/56
[2021-06-11] MEDS: PIPERACILLIN /TAZOBACTAM 2.25 G in IV D5W 50 ML IV SCH ×3 (05:17→20:56)
--- NOTE | 2021-06-11 06:50 | NUR ---
RN NOTE PATIENT RESTING IN BED. ON O2 2L VIA NASAL CANNULA, NO S/S OF RESPIRATORY DISTRESS. IV ACCESS ON SHELLY MIDLINE PATENT AND INTACT. NOTED WITH LEFT FOREARM AV FISTULA. + BRUIT/THRILL. KEPT CLEAN AND DRY. NO SIGNIFICANT CHANGES DURING THIS SHIFT. BED LOCKED AND IN LOWEST POSITION. CALL LIGHT WITHIN REACH. WILL ENDORSE TO AM SHIFT.
[2021-06-11 07:30] LABS: BASOPHILS % (AUTO) 0.9 % (0.0-2.0); EOSINOPHILS % (AUTO) 2.9 % (0.0-6.0); HEMATOCRIT 30 % (39-51); LYMPHOCYTES # (AUTO) 0.7 K/uL (0.8-4.8); LYMPHOCYTES % (AUTO) 17.5 % (20.0-44.0); MEAN CORPUSCULAR HGB CONC 33 g/dl (31.0-36.0); MEAN CORPUSCULAR VOLUME 88 fL (80-96); MONOCYTES # (AUTO) 0.4 K/uL (0.1-1.30); MONOCYTES % (AUTO) 10.3 % (2.0-12.0); NEUTROPHILS # (AUTO) 2.9 K/uL (1.8-8.9); NEUTROPHILS % (AUTO) 68.4 % (43.0-81.0); PLATELET COUNT (AUTO) 194 K/uL (150-450); RED BLOOD CELL COUNT(AUTO) 3.42 MIL/uL (4.5-6.0); WHITE BLOOD COUNT (AUTO) 4.3 K/uL (4.3-11.0)
--- NOTE | 2021-06-11 07:33 | NUR ---
RN OPENING NOTE PATIENT RECEIVED IN BED, WITH SOME RESTLESSNESS AND MUMBLING, A&OX2, REPORTED TO HAVE PERIODS OF CONFUSION. RIGHT UA MIDLINE IN PLACE, LEFT FOREARM AV FISTULA IN PLACE. NO SIGNS OF ACUTE DISTRESS NOTED AT THIS TIME. BED LOCKED AND IN LOWEST POSITION, CALL LIGHT WITHIN REACH, 2 SIDE RAILS UP. WILL CONTINUE TO MONITOR.
[2021-06-11 07:45] LABS: CALCIUM, SERUM 9.3 mg/dL (8.5-10.1); CREATININE 4.4 mg/dL (0.6-1.3); MAGNESIUM 2.2 mg/dL (1.8-2.4); PHOSPHORUS 4.6 mg/dL (2.5-4.9); POTASSIUM 4.2 mmol/L (3.5-5.1)
[2021-06-11 08:00] VITALS: BP 94/46
[2021-06-11] MEDS: SEVELAMER CARBONATE 800 MG TABLET PO SCH ×4 (08:00→17:02)
[2021-06-11] MEDS: NYSTATIN (PYXIS) 500,000 UNIT/5 ML ORAL.SUSP PO SCH ×4 (08:09→17:04)
[2021-06-11] MEDS: BACLOFEN (10 MG) 10 MG TABLET PO SCH ×4 (08:09→17:02)
--- NOTE | 2021-06-11 08:45 | NUR ---
RN NOTE PATIENT REFUSING MEDICATION. MEDICATION CRUSHED IN APPLE SAUCE, PT REFUSING TO SWALLOW. WILL CONTINUE TO MONITOR. FAMILY AWARE.
[2021-06-11 12:00] VITALS: BP 95/55
[2021-06-11] MEDS ORDERED: ALBUMIN 25% 25 GM in PREMIX 1 EA IV ONE (12:00)
--- NOTE | 2021-06-11 12:10 | NUR ---
RN NOTE HD INITIATED, ALBUMIN GIVEN FOR BP SUPPORT. PT TOLERATING WELL SO FAR. WILL CONTINUE TO MONITOR.
--- NOTE | 2021-06-11 12:15 | NUR ---
RN NOTE PATIENT CURRENTLY RECEIVED DIALYSIS. ZOSYN DUE AT 1300 WILL BE HELD UNTIL HD FINISHES, EXPECTED TO END AROUND 1530. WILL CONTINUE TO MONITOR.
--- NOTE | 2021-06-11 13:24 | NUR ---
RN NOTE PROCAL OF 2.15 REPORTED TO DEBORAH ROSE. NO NEW ORDER. WILL CONTINUE TO MONITOR.
--- NOTE | 2021-06-11 15:10 | NUR ---
RN NOTE HD COMPLETED, 1500CC REMOVED. BP STABLE. NO SIGNS OF DISTRESS. WILL CONTINUE TO MONITOR. WILL ADMINISTER POST HD VANCOMYCIN ORDERED.
[2021-06-11 16:00] VITALS: BP 123/59
[2021-06-11] MEDS: ATORVASTATIN 40 MG TABLET PO SCH (17:02)
--- NOTE | 2021-06-11 17:30 | NUR ---
RN NOTE ATTEMPTED TO CONTACT RADIOLOGY REGARDING US GUIDED BIOPSY SCHEDULED FOR TODAY PER ORDER. NO RESPONSE. WILL ENDORSE TO CASINO ACCOUNTANT NURSE.
--- NOTE | 2021-06-11 17:52 | NUR ---
RN NOTE PATIENT REFUSING REPOSITIONING AT THIS TIME AND REFUSING LINEN CHANGE.
[2021-06-11] MEDS: VANCOMYCIN POST DIALYSIS 500MG IV PRN ×2 (18:16)
--- NOTE | 2021-06-11 18:36 | NUR ---
RN CLOSING NOTE PATIENT REMAINS IN BED, WITH SOME RESTLESSNESS AND MUMBLING, A&OX1-2, FAMILY AT BEDSIDE. RIGHT UA MIDLINE IN PLACE RUNNING POST HD VANCOMYCIN AT ORDERED, LEFT FOREARM AV FISTULA IN PLACE. NO SIGNS OF ACUTE DISTRESS NOTED AT THIS TIME. ALL NEEDS ATTENDED DURING SHIFT. BED LOCKED AND IN LOWEST POSITION, CALL LIGHT WITHIN REACH, 2 SIDE RAILS UP. WILL ENDORSE TO FOOD OPERATIONS MANAGER NURSE.
[2021-06-11 20:00] VITALS: BP 131/74
--- NOTE | 2021-06-11 20:15 | NUR ---
RN NOTE PATIENT IN BED ALERT AND RESPONSIVE TO STIMULI. PATIENT ALERT X1, CONFUSED. ON O2 2L VIA NASAL CANNULA. NO S/S OF RESPIRATORY DISTRESS. DENIES ANY PAIN AT THIS TIME. IV ACCESS ON SHELLY MIDLINE PATENT AND INTACT. LEFT FOREARM AV FISTULA NOTED, DRESSING DRY AND INTACT. BED LOCKED AND IN LOWEST POSITION. CALL LIGHT WITHIN REACH. ALL NEEDS ANTICIPATED.
[2021-06-11] MEDS: ACETAMINOPHEN 325 MG TABLET PO PRN (21:50)
--- NOTE | 2021-06-11 21:50 | NUR ---
RN NOTE PATIENT NOTED WITH 101 TEMP. ADMINISTERED TYLENOL PRN ORDERED. COOLING MEASURES PROVIDED. WILL CONTINUE TO MONITOR.
--- NOTE | 2021-06-11 23:37 | NUR ---
pt refused breathing tx at this time Addendum: 06/11/21 at 2337 by FLORIDA GARY RT Amended: Links added.
[2021-06-12] VITALS (23 sets, daily range): BP systolic 59–126; BP diastolic 35–82
[2021-06-12] MEDS: IPRATROPIUM NEB FS 0.5 MG/2.5 ML AMPUL.NEB NEB SCH ×7 (03:24→23:30)
[2021-06-12] MEDS: PIPERACILLIN /TAZOBACTAM 2.25 G in IV D5W 50 ML IV SCH ×3 (04:18→22:02)
[2021-06-12 04:38] LABS: BASOPHILS % (AUTO) 0.8 % (0.0-2.0); EOSINOPHILS % (AUTO) 2.1 % (0.0-6.0); HEMATOCRIT 30 % (39-51); HEMOGLOBIN 10.1 g/dL (13.5-17.5); LYMPHOCYTES # (AUTO) 0.9 K/uL (0.8-4.8); LYMPHOCYTES % (AUTO) 18.8 % (20.0-44.0); MEAN CORPUSCULAR HGB CONC 34 g/dl (31.0-36.0); MEAN CORPUSCULAR VOLUME 87 fL (80-96); MONOCYTES # (AUTO) 0.6 K/uL (0.1-1.30); MONOCYTES % (AUTO) 12.3 % (2.0-12.0); NEUTROPHILS # (AUTO) 3.2 K/uL (1.8-8.9); PLATELET COUNT (AUTO) 191 K/uL (150-450); RED BLOOD CELL COUNT(AUTO) 3.45 MIL/uL (4.5-6.0); WHITE BLOOD COUNT (AUTO) 4.8 K/uL (4.3-11.0)
[2021-06-12 04:56] LABS: CALCIUM, SERUM 9.9 mg/dL (8.5-10.1); CREATININE 3.7 mg/dL (0.6-1.3); MAGNESIUM 2.2 mg/dL (1.8-2.4); PHOSPHORUS 3.8 mg/dL (2.5-4.9); POTASSIUM 3.1 mmol/L (3.5-5.1)
--- NOTE | 2021-06-12 07:34 | NUR ---
RN OPENING NOTE PATIENT RECEIVED IN BED, WITH SOME RESTLESSNESS AND MUMBLING, A&OX1-2, RIGHT UA MIDLINE IN PLACE, LEFT FOREARM AV FISTULA IN PLACE. NO SIGNS OF ACUTE DISTRESS NOTED AT THIS TIME. BLE SOFT WRIST RESTRAINT ON, SKIN WARM AND INTACT. BED LOCKED AND IN LOWEST POSITION, CALL LIGHT WITHIN REACH, 2 SIDE RAILS UP. WILL CONTINUE TO MONITOR.
--- NOTE | 2021-06-12 07:46 | NUR ---
RN NOTE PATIENT RESTING IN BED. ALERT X1, CONFUSED. ON ROOM AIR, NO S/S OF RESPIRATORY DISTRESS. IV ACCESS ON SHELLY MIDLINE PATENT AND INTACT. LEFT FOREARM AV FISTULA NOTED, DRESSING DRY AND INTACT. ON BILATERAL SOFT WRIST RESTRAINTS, CIRCULATIONS AND SKIN CHECKED FREQUENTLY. NO S/S OF SKIN BREAKDOWN. BED LOCKED AND IN LOWEST POSITION. CALL LIGHT WITHIN REACH. ENDORSED TO AM SHIFT.
[2021-06-12] MEDS: SEVELAMER CARBONATE 800 MG TABLET PO SCH ×4 (08:00→17:14)
[2021-06-12] MEDS: NYSTATIN (PYXIS) 500,000 UNIT/5 ML ORAL.SUSP PO SCH ×4 (08:30→17:14)
[2021-06-12] MEDS: BACLOFEN (10 MG) 10 MG TABLET PO SCH ×4 (08:30→17:14)
[2021-06-12] MEDS: HALOPERIDOL 1 MG TABLET PO SCH ×2 (12:18→16:36)
--- NOTE | 2021-06-12 12:36 | NUR ---
RN NOTE BP 89/56. PATIENT ENCOURAGED TO EAT AND DRINK FLUID. PT ATE APPROXIMATELY 30% OF LUNCH AND ONE NEPRO. BP 101/56. WILL CONTINUE TO MONITOR.
--- NOTE | 2021-06-12 12:37 | NUR ---
RN NOTE BILATERAL SOFT WRIST RESTRAINS REMOVED AT 1000. FAMILY AT BEDSIDE. PATIENT IS COOPERATIVE AT THIS TIME, SOME SIGNS OF CONFUSION, PATIENT IS NOT ATTEMPTING TO PULL LINES AT THIS TIME. WILL CONTINUE TO MONITOR.
[2021-06-12] MEDS ORDERED: IV NS 0.9% 500 ML IV ONE (16:30)
[2021-06-12] MEDS ORDERED: IV NS 0.9% 250 ML IV ONE (16:30)
--- NOTE | 2021-06-12 16:38 | NUR ---
RN NOTE BP 71/35 AND 76/36. 500CC NS BOLUS INITIATED ORDERED. WILL CONTINUE TO MONITOR.
[2021-06-12] MEDS: IV NS 0.9% 1,000 ML IV PRN (16:46)
[2021-06-12] MEDS: ATORVASTATIN 40 MG TABLET PO SCH (17:14)
[2021-06-12] MEDS ORDERED: NOREPINEPHRINE 8 MG in IV NS 0.9% 242 ML IV PRN (18:00)
--- NOTE | 2021-06-12 18:21 | NUR ---
RN NOTES RECEIVED PT FROM NEERAJ DUE TO LOW BP, PT OPENS EYES TO VERBAL STIMULI, FOLLOWS SIMPLE COMMAND, ON 2 L O2 N/C , O2 SAT WNL, ON TELE SR HR IN 80'S , R UPPER ARM MIDLINE SITE CLEAN,DRY AND INTACT, PT STARED ON LEVO AT 0.1 MCG/KG/MIN, SR UP x3 , CALL LIGHT WITHIN EASY REACH, BED LOCKED AND IN LOWEST POSITION, CONTINUE TO MONITOR.
--- NOTE | 2021-06-12 18:24 | NUR ---
RN NOTE PATIENT TRANSFERRED TO ICU ROOM 256. REPORT GIVEN TO BERLIN IBARRA AT BEDSIDE, EDUAR CHARGE NURSE PRESENT. BP UNSTABLE PRIOR TO TRANSFER. DRIP INITIATED IN ICU BY BERLIN IBARRA UPON ARRIVAL.
--- NOTE | 2021-06-12 19:00 | NUR ---
SENIOR DOT NET DEVELOPER. PICC LINE NURSE PLACED RT UPPER ARM PICC LINE. XRAY DONE. OK TO USE PICC LINE STACEY PINEDA.
--- NOTE | 2021-06-12 21:35 | NUR ---
CANDY SPREADER HELPER. INITIAL ASSESSMENT. RECEIVED THE PT REST IN BED. AWAKE, ALERT, FOLLOW COMMANDS. KNOWLEDGE MANAGEMENT CONSULTANT SHOWING NSR. IV RT UPPER ARM PICC LINE. IV LEVOPHED 0.2 MCG/KG/MIN. HOB ELEVATED .LT HAND AV FISTULA INTACT. WILL CONTINUE TO MONITOR VITALS.
--- NOTE | 2021-06-12 21:41 | NUR ---
INTERNATIONAL BANK MANAGER. LAB CALLED FOR 1 BOTTLE BLOOD CULTURE PRELIMINARY GRAM POSITIVE COCCI. NOTIFIED PHARMACY COORDINATOR EVARISTO BERMEO. NO ORDER.
[2021-06-13] VITALS (33 sets, daily range): BP systolic 94–125; BP diastolic 51–81
[2021-06-13] MEDS: ACETAMINOPHEN 325 MG TABLET PO PRN ×4 (00:14→21:53)
[2021-06-13] MEDS: IPRATROPIUM NEB FS 0.5 MG/2.5 ML AMPUL.NEB NEB SCH ×6 (03:30→23:43)
[2021-06-13 04:45] LABS: CALCIUM, SERUM 9.2 mg/dL (8.5-10.1); CREATININE 4.7 mg/dL (0.6-1.3); POTASSIUM 3.4 mmol/L (3.5-5.1)
[2021-06-13] MEDS: PIPERACILLIN /TAZOBACTAM 2.25 G in IV D5W 50 ML IV SCH ×3 (05:16→21:08)
--- NOTE | 2021-06-13 05:22 | NUR ---
agricultural economist. am care given. remaining same oxygen 2l via nasal cannula tolerated well. sat 98%. no acute distress noted. deployment manager showing nsr, iv rt upper arm picc line tko running. hob elevated, pt refused reposition. hob elevated. will continue to monitor vitals.
--- NOTE | 2021-06-13 07:30 | NUR ---
RN OPENING NOTE PT OBSERVED IN BED SLEEPING. PT IS ON 2L NC SAT 96% WITH NO SIGNS OF DISTRESS OR LABORED BREATHING. PT IS A/OX2 SLOVENIAN SPEAKING ONLY WITH PERIODS OF CONFUSION. PT IS TELE MONITOR SR AT THIS TIME 83BPMS. PT IS SCHEDULED FOR HD TODAY LAST HD WAS 06/11 -1.5L. PT CURRENTLY ON LEVO @0.06MCG/HR. IV ACCESS R UA PICC LINE, L F/A FISTULA. BED IS LOCKED IN LOWEST POSITION, CALL LIGHT IS WITHIN REACH, AND ALL HOSPITAL SAFETY PROTOCOLS ARE IN PLACE WILL CONTINUE TO MONITOR THIS SHIFT.
[2021-06-13] MEDS: BACLOFEN (10 MG) 10 MG TABLET PO SCH ×4 (08:35→17:03)
[2021-06-13] MEDS: HALOPERIDOL 1 MG TABLET PO SCH ×4 (08:35→17:03)
[2021-06-13] MEDS: NYSTATIN (PYXIS) 500,000 UNIT/5 ML ORAL.SUSP PO SCH ×4 (08:35→17:03)
[2021-06-13] MEDS: SEVELAMER CARBONATE 800 MG TABLET PO SCH ×4 (08:35→18:00)
--- NOTE | 2021-06-13 10:54 | NUR ---
RN NOTE: PHONE CALL SPOKE TO DR. MAYA VIA TELEPHONE AND ENDORSED PT POSITIVE FOR GRAM + COCCI IN [place]. WILL F/U WITH PHARMACY FOR PRN KANNAN AFTER HD.
[2021-06-13] MEDS: SIMETHICONE 80 MG TAB.CHEW PO PRN (12:41)
[2021-06-13] MEDS: ATORVASTATIN 40 MG TABLET PO SCH ×2 (17:03→18:00)
--- NOTE | 2021-06-13 17:39 | NUR ---
RN NOTE: MEDS PT IS DROWSY AT THIS TIME HAVING HD AND UNABLE TO TAKE PO MEDICATIONS. WILL REASSESS AFTER HD.
--- NOTE | 2021-06-13 18:15 | NUR ---
RN NOTE: TRANSFER PT TRANSFERRED TO #310/2 WITH ALL BELONGINGS (CELLPHONE AND SAMPLE GRADER) AND IV MEDICATIONS. PT STATBLE AT THIS TIME POST HD AND DROWSY. BEDSIDE REPORT GIVEN TO STACEY NOWAK.
--- NOTE | 2021-06-13 18:30 | NUR ---
RN NOTES RECEIVED PATIENT FROM ICU NURSE. VSS. TEMP 97.9, HR 103, RR 18, 115/57, O2 SAT 97% ON 2 L OF O2 WITH NO S/SX OF DISTRESS NOTED. DENIES PAIN AT THIS TIME. WILL CONTINUE TO MONITOR AND ENDORSE TO MAIL OPENER NURSE ACCORDINGLY
[2021-06-13] MEDS: VANCOMYCIN POST DIALYSIS 500MG IV PRN ×2 (18:48)
--- NOTE | 2021-06-13 19:30 | NUR ---
MS RN OPENING NOTE PATIENT RESTING IN BED WITH FAMILY AT BEDSIDE, ALERT/ORIENTED X 1, CONFUSED AT TIMES. PATIENT STABLE ON 2 LPM OF OXYGEN VIA NC, NO S/S OF DISTRESS OR SOB NOTED, BREATHING EVEN AND UNLABORED. SHELLY PICC LINE INTACT AND FLUSHING WELL, SALINE LOCKED. SAFETY MEASURES IN PLACE: CALL LIGHT WITHIN REACH, SIDE RAILS UP X 2, BED LOCKED IN LOWEST POSITION, HOB ELEVATED, BED ALARM ON. WILL CONTINUE TO MONITOR PATIENT
--- NOTE | 2021-06-13 21:53 | NUR ---
MS RN NOTE PATIENT COMPLAINING OF ABDOMINAL PAIN, REQUESTED TYLENOL. PRN MEDICATION GIVEN ORDERED, WILL CONTINUE TO MONITOR PATIENT
[2021-06-13] MEDS: ONDANSETRON HCL/PF 4 MG/2 ML VIAL IVP PRN (23:36)
--- NOTE | 2021-06-13 23:40 | NUR ---
MS RN NOTE PATIENT C/O NAUSEA, ZOFRAN 4 MG IV GIVEN ORDERED. WILL CONTINUE TO MONITOR PATIENT
--- NOTE | 2021-06-14 00:25 | NUR ---
MS RN NOTE PATIENT'S BP 86/49, HR: 102, O2: 96% ON 6 LPM OF OXYGEN VIA NASAL CANNULA. PATIENT IS A HEMODIALYSIS PATIENT, HD DONE TODAY WITH 2 L OUT. CONTACTED BAKERY ASSISTANT MD WITH ORDER FOR ONE TIME DOSE OF MIDODRINE 5 MG PO. MEDICATION GIVEN ORDERED. WILL CONTINUE TO MONITOR PATIENT
[2021-06-14] MEDS ORDERED: MIDODRINE HCL (5MG) 5 MG TABLET PO ONE (00:30)
[2021-06-14 01:40] VITALS: BP 91/56
--- NOTE | 2021-06-14 01:40 | NUR ---
MS RN NOTE REASSESSED PATIENT'S VITALS, BP: 91/56, HR: 95, SPO2: 100% ON 6 LPM OF OXYGEN VIA NASAL CANNULA. NOTIFIED TEACHER KINDERGARTEN MD WITH ORDERS TO CONTINUE TO MONITOR
[2021-06-14] MEDS: IPRATROPIUM NEB FS 0.5 MG/2.5 ML AMPUL.NEB NEB SCH ×5 (03:44→20:34)
[2021-06-14 04:48] VITALS: BP 97/52
[2021-06-14] MEDS: PIPERACILLIN /TAZOBACTAM 2.25 G in IV D5W 50 ML IV SCH ×2 (05:25→14:06)
[2021-06-14 06:43] LABS: BASOPHILS % (AUTO) 0.6 % (0.0-2.0); EOSINOPHILS % (AUTO) 1.8 % (0.0-6.0); HEMATOCRIT 27 % (39-51); HEMOGLOBIN 9.1 g/dL (13.5-17.5); LYMPHOCYTES # (AUTO) 1.1 K/uL (0.8-4.8); LYMPHOCYTES % (AUTO) 18.3 % (20.0-44.0); MEAN CORPUSCULAR HGB CONC 33 g/dl (31.0-36.0); MEAN CORPUSCULAR VOLUME 88 fL (80-96); MONOCYTES # (AUTO) 0.7 K/uL (0.1-1.30); MONOCYTES % (AUTO) 10.9 % (2.0-12.0); NEUTROPHILS # (AUTO) 4.2 K/uL (1.8-8.9); NEUTROPHILS % (AUTO) 68.4 % (43.0-81.0); PLATELET COUNT (AUTO) 183 K/uL (150-450); RED BLOOD CELL COUNT(AUTO) 3.11 MIL/uL (4.5-6.0); WHITE BLOOD COUNT (AUTO) 6.1 K/uL (4.3-11.0)
[2021-06-14 07:15] LABS: ALBUMIN 2.5 g/dL (3.4-5.0); BILIRUBIN,TOTAL 0.6 mg/dL (0.2-1.0); CALCIUM, SERUM 9.3 mg/dL (8.5-10.1); CREATININE 3.7 mg/dL (0.6-1.3); MAGNESIUM 2.3 mg/dL (1.8-2.4); POTASSIUM 3.7 mmol/L (3.5-5.1); TOTAL PROTEIN, SERUM 6.4 g/dL (6.4-8.2)
--- NOTE | 2021-06-14 07:26 | NUR ---
MS RN CLOSING NOTE PATIENT AWAKE IN BED, ALERT/ORIENTED X 1-2 WITH PERIODS OF CONFUSION. PT STABLE ON 4 LPM OF OXYGEN VIA NASAL CANNULA, NO S/S OF DISTRESS OR SOB NOTED, BREATHING EVEN AND UNLABORED, TITRATE TOLERATED. SHELLY PICC LINE INTACT AND SALINE LOCKED. LEFT FA AV FISTULA INTACT. MEDICATIONS GIVEN ORDERED, PT NEEDS MET THROUGHOUT SHIFT. PT REFUSED Q2H REPOSITIONING. SAFETY MEASURES IN PLACE: CALL LIGHT WITHIN REACH, SIDE RAILS UP X 3, BED LOCKED IN LOWEST POSITION, HOB ELEVATED, BED ALARM ON. WILL CONTINUE TO MONITOR PATIENT Addendum: 06/14/21 at 0734 by ISA CHOUDHARY RN WILL ENDORSE TO DAY SHIFT NURSE FOR CONTINUITY OF CARE
--- NOTE | 2021-06-14 07:35 | NUR ---
ms rn received on bed, awake, alert,oriented 1-2,not in any form of distress, patient w/ confusions right now, no s/s of pain, for hd today,all needs attended.
[2021-06-14] MEDS: SEVELAMER CARBONATE 800 MG TABLET PO SCH ×3 (08:00→17:30)
[2021-06-14] MEDS: HALOPERIDOL 1 MG TABLET PO SCH ×3 (09:00→17:31)
--- NOTE | 2021-06-14 09:30 | NUR ---
ms rn some meds held due to dialysis.
[2021-06-14] MEDS: NYSTATIN (PYXIS) 500,000 UNIT/5 ML ORAL.SUSP PO SCH ×3 (09:48→17:31)
[2021-06-14] MEDS: BACLOFEN (10 MG) 10 MG TABLET PO SCH ×3 (09:48→17:31)
--- NOTE | 2021-06-14 11:00 | NUR ---
ms myers was seen by dr. montoya, changed dressing, pain med given. Addendum: 06/14/21 at 1445 by SALVADOR VEGAS RN disregard notes, wrong intervention.
--- NOTE | 2021-06-14 14:43 | NUR ---
ms rn on bed, no distress noted.
[2021-06-14] MEDS: ACETAMINOPHEN 325 MG TABLET PO PRN ×2 (17:31→19:47)
[2021-06-14] MEDS: ATORVASTATIN 40 MG TABLET PO SCH (17:31)
[2021-06-14] MEDS: SIMETHICONE 80 MG TAB.CHEW PO PRN ×2 (17:32→19:47)
--- NOTE | 2021-06-14 19:00 | NUR ---
ms rn on bed, patient will have hd in am, all needs attended.
[2021-06-14 20:00] VITALS: BP 115/62
--- NOTE | 2021-06-14 22:31 | NUR ---
Patient reports feeling weak. 112/67 HR 100, Blood glucose 92. Patient states maybe he's just hungry. Nepro at bedside given and per patient request warm blanket given. Will continue to monitor. Addendum: 06/14/21 at 2245 by MAGDA DELACRUZ RN O2 95% on 4LPm via NC.
[2021-06-14] MEDS: ONDANSETRON HCL/PF 4 MG/2 ML VIAL IVP PRN (22:41)
--- NOTE | 2021-06-14 22:45 | NUR ---
Patient ended up feeling nauseous after given nepro supplement. PRN Zofran given. Will reassess.
[2021-06-15] MEDS: IPRATROPIUM NEB FS 0.5 MG/2.5 ML AMPUL.NEB NEB SCH ×7 (00:27→23:29)
--- NOTE | 2021-06-15 00:28 | NUR ---
Patient was saturating 87% on 4L NC and c/o SOB. titrated O2 to 6L O2 sats went up to 90%. Called RT to give scheduled breathing treatment. When RT got here patient was saturating 93% on 6L after breathing treatment was initiated patient saturating 96% on 6L.
[2021-06-15] MEDS: ACETAMINOPHEN 325 MG TABLET PO PRN ×2 (01:58→22:58)
--- NOTE | 2021-06-15 02:08 | NUR ---
Patient reported mild left leg pain and requested tylenol. Prepared as per order but patient spit out and said "this is not good for my "parasites." Patient has been clearly confused since around 2229 -A&Ox1. However, when coming on shift patient was A&Ox2. Per nursing notes and staff that knows patient this is how he was acting last night as well. Seems somewhat anxious but no severe aggression so will not give PRN Ativan at this time. Will continue with nursing interventions at this time. VS continue to be stable O2 94% on 3L via NC. Addendum: 06/15/21 at 3 by MAGDA DELACRUZ RN No severe agitation*
[2021-06-15 06:47] LABS: CALCIUM, SERUM 9.4 mg/dL (8.5-10.1); POTASSIUM 3.9 mmol/L (3.5-5.1)
--- NOTE | 2021-06-15 06:59 | NUR ---
RN CLOSING NOTES Patient is A&Ox1 mostly before bed and vocational trainer 0600+ was A&Ox2. However, patient refuses to be turned and for back/sacral skin assessment, pt. can make minor adjustments in position on own. However, when attempted to to repositioned pt. started screaming. Able to move pelvis just enough to see that there was no BM. Patient is anuric and not wet as well. Patient has been saturating well 92% and above ever since episode of SOB earlier in night. Patient is currently resting in bed calmly in no signs of distress. Pt. is aware he will be dialyzed this AM.
--- NOTE | 2021-06-15 07:20 | NUR ---
ms rn received on bed, awake,alert,oriented x2, w/ periods of confusion,denies pain at this time, patient is for hd today, will monitor patient.
[2021-06-15] MEDS: SEVELAMER CARBONATE 800 MG TABLET PO SCH ×3 (08:00→16:59)
[2021-06-15] MEDS: HALOPERIDOL 1 MG TABLET PO SCH ×3 (09:00→17:00)
[2021-06-15] MEDS: BACLOFEN (10 MG) 10 MG TABLET PO SCH ×3 (09:00→16:59)
[2021-06-15] MEDS: NYSTATIN (PYXIS) 500,000 UNIT/5 ML ORAL.SUSP PO SCH ×3 (09:00→16:59)
--- NOTE | 2021-06-15 09:30 | NUR ---
ms louis breakfast served, refused, refusing meds. will try later.
--- NOTE | 2021-06-15 11:00 | NUR ---
ms louis was seen by dr. pati hays/ orders made and carried out
[2021-06-15 12:00] VITALS: BP 107/71
[2021-06-15] MEDS: MIDODRINE HCL (5MG) 5 MG TABLET PO PRN (13:29)
--- NOTE | 2021-06-15 15:26 | NUR ---
ms rn on bed, hd going on at this time,tolerated
[2021-06-15] MEDS: ATORVASTATIN 40 MG TABLET PO SCH (17:00)
--- NOTE | 2021-06-15 18:00 | NUR ---
ms rn on bed, no distress noted, hd done w/ 1500ml out. tolerated well ,no distress noted.
--- NOTE | 2021-06-15 19:28 | NUR ---
RN OPENING NOTES Patient is A&Ox1- 2 with some confusion noted. pt family ta bedside per family this is pts baseline. Patient s/p dialysis today with 1500 output. pt on 4l via nasal cannula tolerating well. noted with randy picc line s/l flusing well. all needs met at this time. call light within reach. table within reach. bilateral side rails up ofr safety. bed alarm on for safety. will continue to monitor.
[2021-06-15 20:11] VITALS: BP 110/62
--- NOTE | 2021-06-15 22:22 | NUR ---
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 IT I WANTED TO MOVE I CAN DO IT ON MY OWN' WILL CONTINUE TO MONITOR.
[2021-06-15] MEDS: ONDANSETRON HCL/PF 4 MG/2 ML VIAL IVP PRN (23:05)
--- NOTE | 2021-06-15 23:13 | NUR ---
MS RN NOTES PT REFUSING REPOSITION OR LINEN CHANGE AT THIS TIME X3 RISK AND BENEFITS EXPLAINED X3 PT STATED " I CAN DO IT MYSELF I DON'T NEED YOU TO MOVE ME IF I ANT MY BLANKETS CHANGED I WILL TELL YOU" PT PRN TYLENOL GIVEN AND PRN ZOFRAN GIVEN TOLERATED WELL. WILL CONTINUE TO MONITOR.
--- NOTE | 2021-06-16 03:33 | NUR ---
MS RN NOTES TRIED REPOSITIONING PT PT KEPT SCREAMING SAYING " YOUR GOING TO BREAK ME STOP STOP YOUR NOT DOING IT RIGHT ! " WAS UNABLE TO PROPERLY ASSES PTS SACRUM OR BACK FOR WOUNDS PARTIAL BED BATH DONE PARTIAL LINEN CHANGE DONE. WAS ABLE TO PULL PT UP BUT NOT REPOSITION. RISK AND BENEFITS EXPLAINED X3 REFUSED X3.
[2021-06-16] MEDS: IPRATROPIUM NEB FS 0.5 MG/2.5 ML AMPUL.NEB NEB SCH ×7 (04:14→23:25)
[2021-06-16 06:40] LABS: CALCIUM, SERUM 9.4 mg/dL (8.5-10.1); POTASSIUM 4.1 mmol/L (3.5-5.1)
--- NOTE | 2021-06-16 06:58 | NUR ---
MS RN NOTES PATIENT IN BED, AWAKE, PATIENT IS ON O2 VIA NASAL CANNULA AT 2LPM SATURATING WELL. NO SOB OR ANY OTHER SIGNS OF RESPIRATORY DISTRESS NOTED. IV ACCESS ON LEFT WRIST AC G#22, PATENT AND FLUSHES WELL ON SALINE LOCK. ALL NEEDS MET. KEPT PATIENT COMFORTABLE. SAFETY PRECAUTIONS IN PLACE: BED ON LOWEST LOCKED POSITION, SIDE RAILS UP X 2. CALL LIGHT WITHIN EASY REACH. WILL ENDORSE CARE TO DAY SHIFT NURSE.
--- NOTE | 2021-06-16 07:30 | NUR ---
ms rn received on bed, awake,alert,oriented x1-2,not in any form of distress, patient has periods of confusion, denies pain at this time,all needs attended.
--- NOTE | 2021-06-16 07:47 | NUR ---
Pt differed tx at this time. No SOB noted. STACEY Trujillo aware.
[2021-06-16] MEDS: SEVELAMER CARBONATE 800 MG TABLET PO SCH ×3 (08:00→18:00)
--- NOTE | 2021-06-16 08:30 | NUR ---
ms rn patient refusing care, so w/ meds, will offer again later.
[2021-06-16] MEDS: HALOPERIDOL 1 MG TABLET PO SCH ×3 (09:00→17:00)
[2021-06-16] MEDS: BACLOFEN (10 MG) 10 MG TABLET PO SCH ×3 (09:00→18:46)
[2021-06-16] MEDS: NYSTATIN (PYXIS) 500,000 UNIT/5 ML ORAL.SUSP PO SCH ×3 (09:00→17:00)
--- NOTE | 2021-06-16 11:00 | NUR ---
ms rn still refusing care and meds, all needs attended.
--- NOTE | 2021-06-16 11:58 | NUR ---
Pt differed tx at this time. No SOB noted. STACEY Trujillo aware.
--- NOTE | 2021-06-16 15:47 | NUR ---
Pt differed tx at this time. No SOB noted. STACEY Trujillo aware.
--- NOTE | 2021-06-16 16:10 | NUR ---
ms furniture sales associate at bedside, aware of the patient's refusing of care and taking his meds.
[2021-06-16] MEDS: ATORVASTATIN 40 MG TABLET PO SCH (18:46)
[2021-06-16] MEDS: SIMETHICONE 80 MG TAB.CHEW PO PRN (18:49)
--- NOTE | 2021-06-16 19:00 | NUR ---
ms rn on bed, no distress noted.
--- NOTE | 2021-06-16 19:30 | NUR ---
MS RN OPENING NOTE RECEIVED PATIENT IN BED, AWAKE. A/OX2-3. NO S/S OF APPARENT DISTRESS ON 5LPM OF VIA NC. NO C/O PAIN AT THIS TIME. NO FLUIDS RUNNING AT THIS TIME. SAFETY IN PLACE. WILL CONTINUE WITH PLAN OF CARE FOR PATIENT.
[2021-06-16 20:00] VITALS: BP 114/65
--- NOTE | 2021-06-16 21:38 | NUR ---
MS RN NOTE STACEY BUSBY SPOKE TO PATIENT AND ENDORSED TO ME THAT PATIENT ASKING SOMEONE TO FEED HIM. OFFERED MY HELP AND PATIENT REFUSED. PER PATIENT HE DOES NOT WANT COLOMBIAN NURSE. WILL RELAY PATIENT REQUEST TO CHARGE NURSES.
--- NOTE | 2021-06-17 00:33 | NUR ---
MS RN NOTE ADAMANTLY REFUSING MY CARE. ASKED PATIENT MULTIPLE TIMES IF HE WANTS SNACKS SINCE HE DID NOT TOUCH HIS DINNER. PER PATIENT "NO". ALSO NOW COMPLAINING ABOUT HIS ROOM MATE THAT WAS JUST ADMITTED. ASKED QI IBARRA TO TRANSLATE FOR ME. PATIENT DOESN'T WANT ROOM MATE. PATIENT TEACHING DONE.
[2021-06-17] MEDS: ACETAMINOPHEN 325 MG TABLET PO PRN ×2 (01:28→15:41)
--- NOTE | 2021-06-17 01:43 | NUR ---
MS RN NOTE GIVEN TYLENOL PER PATIENT REQUEST FOR 4/10 PAIN ON HIS LEGS.
--- NOTE | 2021-06-17 01:48 | NUR ---
MS RN NOTE AFTER ASKING FOR TYLENOL PATIENT SPIT THE MEDICATION AND WON'T TAKE IT. PER TRANSLATORS OBTAINED PATIENT SEEM TO BE CONFUSED/ SUN DOWNING. OPENED TYLENOL TAB WASTED AND DISPOSED IN RIGHT DISPOSAL BIN.
[2021-06-17] MEDS: LORAZEPAM INJ 2 MG/ML VIAL IM PRN (01:54)
--- NOTE | 2021-06-17 02:00 | NUR ---
MS RN NOTE GIVEN IM ATIVAN 0.5 MG. PATIENT AGITATED, SCREAMING AND DISRUPTING ROOMMATE. CHARGE NURSE AWARE. WILL MONITOR.
--- NOTE | 2021-06-17 02:07 | NUR ---
MS RN NOTE PATIENT AGITATED AND CUSSING AT ROOM MATE BED 1 GETTING ANGRY AND BOTH VERBALLY FIGHTING EACH OTHER. CHARGE AWARE OF INCIDENT. PATIENT JUST GIVEN ATIVAN AND CONSOLED. WILL CONTINUE TO MONITOR AND RE-ASSESS.
--- NOTE | 2021-06-17 02:34 | NUR ---
MS RN NOTE PATIENT TRANSFERRED TO . 308-1
[2021-06-17] MEDS: IPRATROPIUM NEB FS 0.5 MG/2.5 ML AMPUL.NEB NEB SCH ×6 (03:30→23:30)
--- NOTE | 2021-06-17 06:54 | NUR ---
MS RN CLOSING NOTE PATIENT IN BED, INTERMITTENTLY FALLING ASLEEP. PATIENT SERIES OF CONFUSION BUT IS A/O2-3 WHEN ASKED QUESTION. NO S/S OF APPARENT DISTRESS ON 4 LPM OF VIA NC. NO C/O PAIN THIS MORNING. NO FLUIDS RUNNING. NEEDS ATTENDED PATIENT ALLOWED. SAFETY IN PLACE. WILL ENDORSE TO MORNING SHIFT RN FOR CONTINUITY OF CARE.
--- NOTE | 2021-06-17 07:30 | NUR ---
MS RN OPENING NOTE RECEIVED PATIENT AWAKE IN BED. A/OX2-3. NO S/S OF APPARENT DISTRESS NOTED. NO DISCOMFORT NOTED.ON 4LPM OF 02 VIA NC. NO C/O PAIN AT THIS TIME. SAFETY MEASURES IN PLACE. BED IN THE LOWEST POSITION AND LOCKED. SIDE RAILS UP TIMES 2. SHELLY PICC LINE INTACT. LFA AV SHUNT INTACT. POSITIVE FOR BRUIT AND THRILL. WILL CONTINUE TO MONITOR..
[2021-06-17] MEDS: NYSTATIN (PYXIS) 500,000 UNIT/5 ML ORAL.SUSP PO SCH ×3 (08:14→16:04)
[2021-06-17] MEDS: HALOPERIDOL 1 MG TABLET PO SCH ×3 (08:14→16:04)
[2021-06-17] MEDS: SEVELAMER CARBONATE 800 MG TABLET PO SCH ×3 (08:14→18:08)
[2021-06-17] MEDS: BACLOFEN (10 MG) 10 MG TABLET PO SCH ×3 (08:14→16:04)
[2021-06-17] MEDS: VANCOMYCIN POST DIALYSIS 500MG IV PRN ×2 (10:25)
[2021-06-17 11:47] LABS: BASOPHILS # (AUTO) 0.1 K/uL (0.0-0.2); BASOPHILS % (AUTO) 1.2 % (0.0-2.0); CALCIUM, SERUM 9.7 mg/dL (8.5-10.1); CREATININE 5.5 mg/dL (0.6-1.3); EOSINOPHILS % (AUTO) 1.9 % (0.0-6.0); HEMATOCRIT 27 % (39-51); HEMOGLOBIN 8.9 g/dL (13.5-17.5); LYMPHOCYTES # (AUTO) 0.9 K/uL (0.8-4.8); LYMPHOCYTES % (AUTO) 17.5 % (20.0-44.0); MEAN CORPUSCULAR HGB CONC 33 g/dl (31.0-36.0); MEAN CORPUSCULAR VOLUME 89 fL (80-96); MONOCYTES # (AUTO) 0.4 K/uL (0.1-1.30); MONOCYTES % (AUTO) 6.9 % (2.0-12.0); NEUTROPHILS # (AUTO) 3.9 K/uL (1.8-8.9); NEUTROPHILS % (AUTO) 72.5 % (43.0-81.0); PLATELET COUNT (AUTO) 190 K/uL (150-450); POTASSIUM 4.8 mmol/L (3.5-5.1); RED BLOOD CELL COUNT(AUTO) 3.06 MIL/uL (4.5-6.0); WHITE BLOOD COUNT (AUTO) 5.4 K/uL (4.3-11.0)
[2021-06-17] MEDS: IV NS 0.9% 1,000 ML IV PRN (16:49)
[2021-06-17] MEDS: ATORVASTATIN 40 MG TABLET PO SCH (18:08)
--- NOTE | 2021-06-17 19:30 | NUR ---
MS RN CLOSING NOTE PATIENT AWAKE IN BED. A/OX2-3.INCOMING SHIFT NURSE TRANSLATED FOR ME .THE PATIENT LOOKS CONFUSED. CHECKED ALL THE VITAL SIGNS. IT IS WITHIN NORMAL RANGES. NO DISCOMFORT NOTED.ON 4LPM OF VIA NC. NO C/O PAIN AT THIS TIME. SAFETY MEASURES IN PLACE. ALL DUE MEDS GIVEN ORDERED. BED IN THE LOWEST POSITION AND LOCKED. SIDE RAILS UP TIMES 2. SHELLY PICC LINE INTACT. LFA AV SHUNT INTACT. POSITIVE FOR BRUIT AND THRILL. WILL ENDORSE FOR ALBERTO.
--- NOTE | 2021-06-17 19:35 | NUR ---
MS RN OPENING NOTE RECEIVED PATIENT AWAKE IN BED. A/OX2 NOTED WITH CONFUSION PT SPEAKING TO HIMSELF. NO S/S OF APPARENT DISTRESS NOTED. NO DISCOMFORT NOTED.ON 4LPM OF VIA NC. NO C/O PAIN AT THIS TIME. SAFETY MEASURES IN PLACE. BED IN THE LOWEST POSITION AND LOCKED. SIDE RAILS UP TIMES 2. SHELLY PICC LINE INTACT. LFA AV SHUNT INTACT. POSITIVE FOR BRUIT AND THRILL. WILL CONTINUE TO MONITOR.
[2021-06-17 20:18] VITALS: BP 112/79
--- NOTE | 2021-06-17 22:00 | NUR ---
MS RN NOTES PT REFUSIGN REPOSITIONING X3 RISK AND BENEFITS EXPLAINED X3 . 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 WILL CONTINUE TO MONITOR.
[2021-06-18 00:08] VITALS: BP 100/57
[2021-06-18] MEDS: IPRATROPIUM NEB FS 0.5 MG/2.5 ML AMPUL.NEB NEB SCH ×5 (03:30→20:04)
[2021-06-18] MEDS: LORAZEPAM INJ 2 MG/ML VIAL IM PRN ×2 (04:05→23:48)
--- NOTE | 2021-06-18 04:08 | NUR ---
MS RN NOTES PRN ATIVAN GIVEN FOR AGITATION ANS SCREAMING. ALL NEEDS MET AT THIS TIME. WILL CONTINUE TO MONITOR.
[2021-06-18 04:42] VITALS: BP 100/57
[2021-06-18 04:52] VITALS: BP 109/49
--- NOTE | 2021-06-18 05:26 | NUR ---
MS RN NOTES PT CONTINUES TO REFUSE REPOSITIONING X3 RISK AND BENEFITS EXPLAINED X3 WILL CONTINUE TO MONITOR. AND ATTEND ALL NEEDS.
--- NOTE | 2021-06-18 07:05 | NUR ---
MS RN CLOSING NOTE PATIENT AWAKE IN BED. A/OX2 NOTED WITH CONFUSION PT SPEAKING TO HIMSELF. NO S/S OF APPARENT DISTRESS NOTED. NO DISCOMFORT NOTED.ON 4LPM OF 02 VIA NC. NO C/O PAIN AT THIS TIME. SAFETY MEASURES IN PLACE. BED IN THE LOWEST POSITION AND LOCKED. SIDE RAILS UP TIMES 2. SHELLY PICC LINE INTACT. LFA AV SHUNT INTACT. POSITIVE FOR BRUIT AND THRILL. WILL ENDORSE CARE TO DAY SHIFT NURSE.
--- NOTE | 2021-06-18 07:29 | NUR ---
MS RN OPENING NOTE RECEIVED PATIENT AWAKE IN BED. A/OX2-3. WITH EPISODES OF CONFUSIONS. NO S/S OF APPARENT DISTRESS NOTED. NO DISCOMFORT NOTED.ON 4LPM OF VIA NC. NO C/O PAIN AT THIS TIME. HEAD OF THE BED ELEVATED.SAFETY MEASURES IN PLACE. BED IN THE LOWEST POSITION AND LOCKED. SIDE RAILS UP TIMES 2. SHELLY PICC LINE INTACT. LFA AV SHUNT INTACT. POSITIVE FOR BRUIT AND THRILL. WILL CONTINUE TO MONITOR.
[2021-06-18 08:00] VITALS: BP 81/47
[2021-06-18] MEDS: SEVELAMER CARBONATE 800 MG TABLET PO SCH ×3 (08:24→17:08)
[2021-06-18] MEDS: NYSTATIN (PYXIS) 500,000 UNIT/5 ML ORAL.SUSP PO SCH ×3 (10:06→17:08)
[2021-06-18] MEDS: HALOPERIDOL 1 MG TABLET PO SCH ×3 (10:06→17:07)
[2021-06-18] MEDS: BACLOFEN (10 MG) 10 MG TABLET PO SCH ×3 (10:06→17:08)
--- NOTE | 2021-06-18 13:10 | NUR ---
RN NOTES KAYLEE FROM LAB CALLED AT 1310 AND GAVE REPORT OF THE BLOOD CULTURE OF GRAM POSITIVE COCCI INCLUSTER. INFORMED DR SANTIZO , REPEAT OF BLOOD CULTURE TEST GIVEN FOR 06/19/21
[2021-06-18] MEDS: ACETAMINOPHEN 325 MG TABLET PO PRN (14:31)
[2021-06-18] MEDS: ATORVASTATIN 40 MG TABLET PO SCH (17:08)
--- NOTE | 2021-06-18 17:30 | NUR ---
RN NOTES PATIENT REMOVED PICC LINE AND DRESSING FOR HD CATHETER. PATIENT CONFUSED .
--- NOTE | 2021-06-18 19:30 | NUR ---
MS RN CLOSING NOTE PATIENT AWAKE IN BED. A/OX2-3. WITH EPISODES OF CONFUSIONS. NO S/S OF APPARENT DISTRESS NOTED. NO DISCOMFORT NOTED.ON 2LPM OF 02 VIA NC. NO C/O PAIN AT THIS TIME. HEAD OF THE BED ELEVATED. ALL DUE MEDS GIVEN ORDERED. PATIENT IS REFUSING SKIN CHECKS AND REPOSITIONING. ASKED DR SANTIZO FOR STRONGER PAIN MEDICATION FOR BEING ABLE TO REPOSITION THE PATIENT , DR SANTIZO NOTED PATIENT IS CONFUSED AND STRONG MEDICATION IS NOT BENEFICIAL FOR THE PATIENT. PATIENT'S FAMILY AT THE BED SIDE. ENCOURAGING THE PATIENT FOR MEDICATION INTAKE. SAFETY MEASURES IN PLACE. BED IN THE LOWEST POSITION AND LOCKED. SIDE RAILS UP TIMES 2. PATIENT REMOVED RFA MIDLINE. PATIENT REFUSED BLOOD PRESSURE CHECKS.LFA AV SHUNT INTACT. POSITIVE FOR BRUIT AND THRILL. WILL ENDORSE FOR ALBERTO.
--- NOTE | 2021-06-18 19:44 | NUR ---
RN OPENING NOTE PATIENT IS AWAKE IN BED. A/OX4. NO S/S OF DISTRESS, BREATHING ON RM AIR W/O DIFFICULTY. LFA AV SHUNT ASIDE, PATIENT HAS NO IV ACCESS AT ALL. ACCORDING TO DAY SHIFT REPORT, STACEY HUYNH, PATIENT HAS CONTINUOUSLY REMOVED ANY AND ALL IV ACCESS - HE ALSO REFUSES INSERTION WHEN ASKED AND ENCOURAGED. RN STATED MD IS MADE AWARE. WILL ENCOURAGE AND ATTEMPT A PERIPHERAL IV ASSUMING PATIENT ALLOWS ME. SAFETY MEASURES IN PLACE: BED AT LOWEST POSITION, BED LOCKED, RAILS UP X2, CALL DAVID WITHIN REACH. WILL CONTINUE TO MONITOR PATIENT.
--- NOTE | 2021-06-18 23:43 | NUR ---
RN NOTE PATIENT WAS FOUND TO HAVE STARTED VOMITING. HE VOMITED X3. ALL SAFETY MEASURES FOLLOWED: HOB WAS RAISED, EMESIS BAG UTILIZED TO COLLECT VOMIT, PATIENT EDUCATION GIVEN TO THE IMPORTANCE OF ACTIONS TAKEN BY NURSE. PATIENT HAS ZOFRAN VIA IV PUSH ALREADY ORDERED, WELL ATIVAN IM IN ORDER TO RELIEVE THE PATIENT OF AGITATION. PATIENT HAS NO IV ACCESS. PATIENT HAS A HISTORY OF REMOVING LINES: PERIPHERAL, MIDLINE, AND PICC LINES. PATIENT WAS AGITATED. MD CONTACTED FOR ORDER OF RESTRAINTS AND TO ADMINISTER ZOFRAN. ATIVAN GIVEN PER MD ORDER, RESTRAINTS APPLIED. IV ACCESS UNSUCCESSFUL. MD NOTIFIED, AND MD GAVE ORDER FOR MIDLINE INSERTION. HOWEVER, VOMITING HAS CEASED AND PATIENT HAS STATED SOME RELIEF HAS BEEN ATTAINED. PATIENT STABLE; WILL CONTINUE TO MONITOR PATIENT.
[2021-06-19] MEDS: IPRATROPIUM NEB FS 0.5 MG/2.5 ML AMPUL.NEB NEB SCH ×7 (00:20→23:30)
[2021-06-19 06:34] LABS: ALBUMIN 2.9 g/dL (3.4-5.0); BILIRUBIN,TOTAL 0.6 mg/dL (0.2-1.0); CALCIUM, SERUM 9.6 mg/dL (8.5-10.1); CREATININE 7.4 mg/dL (0.6-1.3); MAGNESIUM 3.3 mg/dL (1.8-2.4); PHOSPHORUS 4.8 mg/dL (2.5-4.9); POTASSIUM 5.2 mmol/L (3.5-5.1); TOTAL PROTEIN, SERUM 7.3 g/dL (6.4-8.2)
--- NOTE | 2021-06-19 06:39 | NUR ---
RN CLOSING NOTE PATIENT ASLEEP IN BED. A/OX2 W/ CONFUSION. NO S/S OF DISTRESS, BREATHING ON 2L NC W/O DIFFICULTY. NO IV ACCESS AT THIS TIME; HAS GIVEN ORDER FOR MIDLINE INSERTION PREVIOUSLY NOTED. SAFETY MEASURES IN PLACE: BED AT LOWEST POSITION, LOCKED, RAILS UP X3, CALL DAVID WITHIN REACH. WILL ENDORSE TO NEXT SHIFT FOR ALBERTO. Addendum: 06/19/21 at 0721 by EDDIE BRODERICK RN REPORT GIVEN TO AND ACKNOWLEDGED BY RODDY
[2021-06-19 07:07] LABS: BASOPHILS % (AUTO) 0.7 % (0.0-2.0); EOSINOPHILS % (AUTO) 1.9 % (0.0-6.0); HEMATOCRIT 30 % (39-51); LYMPHOCYTES # (AUTO) 0.9 K/uL (0.8-4.8); LYMPHOCYTES % (AUTO) 13.6 % (20.0-44.0); MEAN CORPUSCULAR HGB CONC 33 g/dl (31.0-36.0); MEAN CORPUSCULAR VOLUME 89 fL (80-96); MONOCYTES # (AUTO) 0.5 K/uL (0.1-1.30); MONOCYTES % (AUTO) 8.1 % (2.0-12.0); NEUTROPHILS # (AUTO) 4.7 K/uL (1.8-8.9); NEUTROPHILS % (AUTO) 75.7 % (43.0-81.0); PLATELET COUNT (AUTO) 207 K/uL (150-450); RED BLOOD CELL COUNT(AUTO) 3.41 MIL/uL (4.5-6.0); WHITE BLOOD COUNT (AUTO) 6.2 K/uL (4.3-11.0)
[2021-06-19 08:00] VITALS: BP 119/58
[2021-06-19] MEDS: SEVELAMER CARBONATE 800 MG TABLET PO SCH ×4 (08:00→18:00)
[2021-06-19] MEDS: BACLOFEN (10 MG) 10 MG TABLET PO SCH ×4 (09:00→16:25)
[2021-06-19] MEDS: HALOPERIDOL 1 MG TABLET PO SCH ×4 (09:00→16:25)
[2021-06-19] MEDS: NYSTATIN (PYXIS) 500,000 UNIT/5 ML ORAL.SUSP PO SCH ×3 (09:50→16:25)
--- NOTE | 2021-06-19 10:45 | NUR ---
RN NOTES SPOKE W/ FOREST LAW AND POLICY PROFESSOR AND INFORMED ABOUT PATIENT'S VOMITING EPISODE DURING THE NIGHT. PATIENT REFUSED TO EAT BREAKFAST BUT DRINKS WATER WHENEVER HE WANTS.
--- NOTE | 2021-06-19 10:55 | NUR ---
RN NOTES DIALYSIS NURSE AT BEDSIDE FOR SCHEDULED HD.
[2021-06-19] MEDS: ACETAMINOPHEN 325 MG TABLET PO PRN ×2 (11:50→18:15)
--- NOTE | 2021-06-19 12:10 | NUR ---
RN NOTES FAMILY AT BEDSIDE TO SEE THE PATIENT.
--- NOTE | 2021-06-19 14:26 | NUR ---
RN NOTES DIALYSIS NURSE STATED THAT PATIENT WAS COMPLAINING OF PAIN. SPOKE W/ PATIENT W/ FROYLAN, STUDENT NURSE, TRANSLATING FOR PATIENT. PATIENT STATED THAT HE IS NOT COMPLAINING OF PAIN BUT JUST MENTIONED THAT HE FEELS DISCOMFORT WITH HIS LEGS. DOES NOT WANT TO BE REPOSITIONED AT THIS TIME BUT ONLY MENTIONED TO STAFF.
[2021-06-19 16:00] VITALS: BP 97/59
[2021-06-19] MEDS: ATORVASTATIN 40 MG TABLET PO SCH (18:00)
--- NOTE | 2021-06-19 19:30 | NUR ---
MS RN OPENING NOTES RECEIVED PATIENT LYING IN BED AWAKE. A/O X2-3 WITH SOME CONFUSION NOTED. WOLOF SPEAKING. NO C/O PAIN AT THIS TIME. ON O2 AT 3 LPM VIA NASAL CANULA. BREATHING EVEN AND UNLABORED. HAS LEFT FOREARM AV SHUNT WITH POSITIVE BRUIT AND SHRILL. PATIENT HAS NO IV ACCESS. SAFETY MEASURES IN PLACE. WILL CONTINUE PLAN OF CARE.
--- NOTE | 2021-06-19 19:31 | NUR ---
RN NOTES BEDSIDE ENDORSEMENT GIVEN TO NURSE FIRST AID RN.
--- NOTE | 2021-06-19 20:10 | NUR ---
RT NOTE PT REFUSING TX AT THIS TIME. EXPLAINED RISKS AND BENEFITS. PT CURRENTLY ON 3LPM NASAL CANNULA. NO RESPIRATORY DISTRESS NOTED. WILL CONTINUE TO MONITOR.
[2021-06-19 20:56] VITALS: BP 93/58
--- NOTE | 2021-06-19 21:30 | NUR ---
MS RN NOTES ATTEMPTED TO DO SKIN ASSESSMENT BUT PATIENT REFUSED AND DOESN'T WANT TO BE TOUCHED. EXPLAINED IMPORTANCE, STILL REFUSED.
[2021-06-20] MEDS: IPRATROPIUM NEB FS 0.5 MG/2.5 ML AMPUL.NEB NEB SCH ×6 (03:30→23:21)
--- NOTE | 2021-06-20 07:00 | NUR ---
MS RN CLOSING NOTES PATIENT LYING IN BED AWAKE. A/O X2-3 WITH SOME CONFUSION NOTED. SERBIAN SPEAKING. DENIES PAIN OR DISCOMFORT AT THIS TIME. REFUSES TO BE REPOSITIONED, EXPLAINED RISKS AND BENEFITS X2. ON O2 AT 3 LPM VIA NASAL CANULA. NO SOB OR NOTED. HAS LEFT FOREARM AV SHUNT WITH POSITIVE BRUIT AND SHRILL. MIDLINE INSERTION ENDORSED TO AM NURSE. ALL NEEDS ATTENDED. KEPT DRY AND COMFORTABLE. SAFETY MEASURES IN PLACE: BED LOW AND LOCKED, SIDE RAILS UP X2, CALL LIGHT WITHIN REACH.
--- NOTE | 2021-06-20 07:21 | NUR ---
MS RN OPENING NOTES RECEIVED PATIENT AWAKE IN BED IN NO ACUTE SIGNS OF DISTRESS. A/OX2-3. SOME WHAT CONFUSED BUT ABLE TO MAKE NEEDS KNOWN IN DOMINICAN, DENIES PAIN OR ANY DISCOMFORTS AT THIS TIME. ON ROOM AIR, TOLERATING WELL, BREATHING EVEN AND UNLABORED. LFA AV SHUNT WITH POSITIVE BRUIT AND SHRILL. PATIENT HAS NO IV ACCESS, REFUSED INSERTION WHEN ASKED AND ENCOURAGED. SAFETY MEASURES IN PLACE: BED AT LOWEST POSITION, BED LOCKED, RAILS UP X2, CALL DAVID WITHIN REACH. WILL CONTINUE TO MONITOR PATIENT.
[2021-06-20 08:00] VITALS: BP 109/65
[2021-06-20] MEDS ORDERED: MIDODRINE HCL (5MG) 5 MG TABLET PO PRN (08:00)
[2021-06-20] MEDS: NYSTATIN (PYXIS) 500,000 UNIT/5 ML ORAL.SUSP PO SCH ×3 (08:21→16:52)
[2021-06-20] MEDS: BACLOFEN (10 MG) 10 MG TABLET PO SCH ×3 (08:22→16:52)
[2021-06-20] MEDS: SEVELAMER CARBONATE 800 MG TABLET PO SCH ×3 (08:22→17:56)
[2021-06-20] MEDS: HALOPERIDOL 1 MG TABLET PO SCH ×3 (08:22→16:52)
--- NOTE | 2021-06-20 08:23 | NUR ---
RESP TX DEFERRED. PT SLEEPING NO S/S OF SOB NOTED ATT Addendum: 06/20/21 at 0823 by CHING MOORE RT Amended: Links added.
[2021-06-20 09:22] LABS: CALCIUM, SERUM 9.1 mg/dL (8.5-10.1); CREATININE 6.1 mg/dL (0.6-1.3)
[2021-06-20 09:28] LABS: ALBUMIN 2.6 g/dL (3.4-5.0); BILIRUBIN,TOTAL 0.5 mg/dL (0.2-1.0); TOTAL PROTEIN, SERUM 6.6 g/dL (6.4-8.2)
--- NOTE | 2021-06-20 10:06 | NUR ---
WOUND CARE CONSULT: PT SEEN FOR FISTULA SITE LEFT ARM WHICH PRESENTS WITH SCAB 1CM X 1CM X UTD (BROWN COLOR) AND SOME DARK RED/BROWN DRY DRAINAGE ON DRESSING. DR VELASQUEZ EXAMINED PT. DEFER TO PMD AND JD EDWARDS DEVELOPER FOR FISTULA SITE. WILL SEE PRN. (PT REFUSED FULL SKIN ASSESSMENT).
--- NOTE | 2021-06-20 15:30 | NUR ---
RESP TX DEFERRED. PT SLEEPING COMFORTABLY NO S/S OF SOB NOTED Addendum: 06/20/21 at 1530 by CHING MOORE RT Amended: Links added.
[2021-06-20] MEDS: MIDODRINE HCL (5MG) 5 MG TABLET PO PRN (15:41)
--- NOTE | 2021-06-20 15:46 | NUR ---
RN NOTES PT NOTED WITH BP OD 88/56 MMHG, MIDODRINE 10 MG TAB GIVEN . WILL CONTINUE TO MONITOR.
[2021-06-20 16:00] VITALS: BP 88/56
[2021-06-20] MEDS: ATORVASTATIN 40 MG TABLET PO SCH (17:56)
--- NOTE | 2021-06-20 18:14 | NUR ---
RN NOTES PT SEEN BY DR ROJO AND NOTED THAT PT'S LFA AV FISTULA SITE IS SWOLLEN WITH MULTIPLE DRY WOUNDS. DR ROJO STATED THAT HE WILL ASK DR PATINO FOR VASCULAR CONSULT.
--- NOTE | 2021-06-20 18:46 | NUR ---
MS RN CLOSING NOTES PATIENT IN BED AWAKE AND WATCHING TV AT THIS TIME. A/ OX2-3. GABONESE SPEAKING. ON ROOM AIR, TOLERATING WELL, BREATHING EVEN AND UNLABORED. PT WITH LFA AV SHUNT WITH POSITIVE BRUIT AND SHRILL NOTED, LFA SWOLLEN, DR ROJO AWARE AND ORDER VASCULAR CONSULT. IV ACCESS ON RFA G#24 INTACT AND PATENT. ALL NEEDS AND CARE ATTENDED WELL. SAFETY MEASURES IN PLACE: BED AT LOWEST POSITION, BED LOCKED, RAILS UP X2, CALL DAVID WITHIN REACH. WILL ENDORSE ALBERTO TO FINANCIAL SERVICE REP NURSE.
[2021-06-20 20:00] VITALS: BP 90/51
[2021-06-21] MEDS: IPRATROPIUM NEB FS 0.5 MG/2.5 ML AMPUL.NEB NEB SCH ×6 (03:30→22:30)
[2021-06-21 06:15] VITALS: BP 112/62
--- NOTE | 2021-06-21 06:32 | NUR ---
MS RN NOTES AWAKE & RESPONSIVE. NOT IN ANY DISTRESS. NO SOB NOTED. DENIES ANY PAIN OR DISCOMFORT AT THIS TIME. WITH IV-HL PATENT & INTACT. KEPT ON NPO P MN. MONITORED ACCORDINGLY. CALL LIGHT WITHIN REACH. BED IN LOWEST POSITIONS SR UP X3 WITH BED ALARM ON FOR SAFETY. WILL ENDORSE TO NEXT SHIFT.
[2021-06-21 06:47] LABS: BASOPHILS # (AUTO) 0.1 K/uL (0.0-0.2); BASOPHILS % (AUTO) 0.9 % (0.0-2.0); EOSINOPHILS % (AUTO) 1.4 % (0.0-6.0); HEMATOCRIT 27 % (39-51); HEMOGLOBIN 8.9 g/dL (13.5-17.5); LYMPHOCYTES # (AUTO) 0.8 K/uL (0.8-4.8); LYMPHOCYTES % (AUTO) 13.9 % (20.0-44.0); MEAN CORPUSCULAR HGB CONC 34 g/dl (31.0-36.0); MEAN CORPUSCULAR VOLUME 88 fL (80-96); MONOCYTES # (AUTO) 0.5 K/uL (0.1-1.30); MONOCYTES % (AUTO) 8.2 % (2.0-12.0); NEUTROPHILS # (AUTO) 4.4 K/uL (1.8-8.9); NEUTROPHILS % (AUTO) 75.6 % (43.0-81.0); PLATELET COUNT (AUTO) 184 K/uL (150-450); RED BLOOD CELL COUNT(AUTO) 3.02 MIL/uL (4.5-6.0); WHITE BLOOD COUNT (AUTO) 5.8 K/uL (4.3-11.0)
[2021-06-21 06:52] LABS: ALBUMIN 2.6 g/dL (3.4-5.0); BILIRUBIN,TOTAL 0.4 mg/dL (0.2-1.0); CALCIUM, SERUM 9.3 mg/dL (8.5-10.1); CREATININE 6.9 mg/dL (0.6-1.3); POTASSIUM 5.2 mmol/L (3.5-5.1); TOTAL PROTEIN, SERUM 6.7 g/dL (6.4-8.2)
--- NOTE | 2021-06-21 07:24 | NUR ---
MS RN OPENING NOTES RECEIVED PATIENT IN BED AWAKE, A/O X 3. MACEDONIAN SPEAKING. MAINTAINED ON NPO PER MD ORDER. ON ROOM AIR, TOLERATING WELL, BREATHING EVEN AND UNLABORED. LFA REMAINS SWOLLEN AND AV SHUNT IN PLACE WITH POSITIVE BRUIT AND SHRILL. SHELLY MIDLINE G#18 INTACT AND PATENT. SAFETY MEASURES IN PLACE: BED AT LOWEST POSITION, BED LOCKED, RAILS UP X2, CALL DAVID WITHIN REACH. WILL CONTINUE TO MONITOR PATIENT.
[2021-06-21 08:00] VITALS: BP 106/62
[2021-06-21] MEDS: SEVELAMER CARBONATE 800 MG TABLET PO SCH ×3 (08:00→18:00)
[2021-06-21] MEDS: HALOPERIDOL 1 MG TABLET PO SCH ×3 (09:00→16:40)
[2021-06-21] MEDS: BACLOFEN (10 MG) 10 MG TABLET PO SCH ×3 (09:00→16:41)
[2021-06-21] MEDS: NYSTATIN (PYXIS) 500,000 UNIT/5 ML ORAL.SUSP PO SCH ×3 (09:00→16:41)
--- NOTE | 2021-06-21 10:25 | NUR ---
RN NOTES PT ON HD VIA LFA AV SHUNT IN PROGRESS
--- NOTE | 2021-06-21 10:33 | NUR ---
RN NOTES: RECEIVED A CALL FROM DR. PATINO, NO SURGERY FOR NOW. PATIENT MAY EAT (RENAL DIET)
--- NOTE | 2021-06-21 11:24 | NUR ---
RN NOTES: HD TERMINATED AFTER 30MINS, PATIENT KEPT PINCHING THE DIALYSIS TUBE, EXPLAINED TO PATIENT THERES HIGH RISK FOR FISTULA RUPTURE AND MASSIVE BLEEDING.
[2021-06-21] MEDS ORDERED: VANCOMYCIN 500 MG in IV D5W 100 ML IV PRN (13:30)
[2021-06-21] MEDS ORDERED: VANCOMYCIN 1 GM in IV D5W 250 ML IV ONE (15:30)
[2021-06-21 16:00] VITALS: BP 91/56
[2021-06-21] MEDS: ATORVASTATIN 40 MG TABLET PO SCH (18:00)
--- NOTE | 2021-06-21 18:00 | NUR ---
RN NOTES: PATIENT SEEN AND EXAMINED BY DR ROJO, SPOKE THE FAMILY ABOUT LEFT ARM AV FISTULA THAT CANNOT BE USED ON DIALYSIS. FAMILY AND PATIENT STILL UNDECIDED FOR THE BETTY HD LINE. WILL INFORM MD FOR FAMILY'S DECISION AND PREPARE CONSENT IF PT WILL PROCEED AND AGREE TO THE PROCEDURE.
--- NOTE | 2021-06-21 18:35 | NUR ---
MS RN CLOSING NOTES: PATIENT RESTING IN BED, A/OX3,ABLE TO VERBALIZED NEEDS. AZERBAIJANI SPEAKING. ON RENAL DIET ORDERED. PATIENT HOOKED TO O2 INHALATION @3LPM TOLERATED WELL, NO SOB OR CARDIAC DISTRESS NOTED.lfa REMAINED SWOLLEN AND AV SHUNT IN PLACE NOTED W/ BRUIT AND SHRILL,COVERED WITH DRY DRESSING. SHELLY MIDLINE G#18 PATENT AND INTACT. UNABLE TO ASSESS SACRAL AND BACK AREA DUE TO REFUSAL. PATIENT ALSO REFUSED TO BE TURNED AND REPOSITIONED. SAFETY PRECAUTIONARY MEASURES MAINTAINED: BED LOCKED AND IN LOWEST POSITION, SIDERAILS UP X2. CALL LIGHT IN EASY REACH FOR ASSITANCE/HELP. WILL ENDORSED TO NEXT SHIFT FOR ALBERTO.
--- NOTE | 2021-06-21 19:15 | NUR ---
MS RN CLOSING NOTES: PATIENT RESTING IN BED, A/OX2-3,ABLE TO VERBALIZED NEEDS. SLOVENIAN SPEAKING. ON RENAL DIET ORDERED. PATIENT ON @3LPM TOLERATED WELL, NO SOB OR CARDIAC DISTRESS NOTED.LFA NOTED WITH SWOLLEN AND AV SHUNT IN PLACE NOTED W/ BRUIT AND SHRILL,COVERED WITH DRY DRESSING. SHELLY MIDLINE G#18 PATENT AND INTACT. UNABLE TO ASSESS SACRAL AND BACK AREA DUE TO REFUSAL WILL ATTEMPT AGAIN LATER. PATIENT ALSO REFUSED TO BE TURNED AND REPOSITIONED AT THIS TIME. SAFETY PRECAUTIONARY MEASURES MAINTAINED: BED LOCKED AND IN LOWEST POSITION, SIDERAILS UP X2. CALL LIGHT IN EASY REACH FOR ASSISTANCE/HELP. WILL CONTINUE TO MONITOR.
[2021-06-21 20:00] VITALS: BP 101/62
--- NOTE | 2021-06-21 20:04 | NUR ---
RT NOTE FOUND PT ON ROOM AIR SPO2 @92 HR 104. TX GIVEN. DENIED LATER TX, WANTS TO SLEEP. WILL CONTNIUE TO MONITOR T/O SHIFT. NO S/S OF ACUTE RESPIRATORY DISTRESS NOTED.
--- NOTE | 2021-06-21 22:07 | NUR ---
MS RN NOTES PT REFUSING REPOSITIONING AT TIS ITME X3 RISK AND BENEFITS EXPLAINED X3 PT CONTINUES TO REFUSE PT STATED " I CAN DO IT MYSELF I DON'T NEED YOU TO HELP ME IF I DO I WILL ASK YOU" WILL CONTINUE TO MONITOR.
[2021-06-21] MEDS: ACETAMINOPHEN 325 MG TABLET PO PRN (22:43)
--- NOTE | 2021-06-21 22:47 | NUR ---
MS RN NOTES PRN TYLENOL GIVEN FOR MILD PAIN 3/10 ON A NUMERIC PAIN SCALE.ALL NEEDS ATTENDED WILL CONTINUE TO MONITOR.
[2021-06-21] MEDS: SIMETHICONE 80 MG TAB.CHEW PO PRN (22:50)
--- NOTE | 2021-06-21 22:52 | NUR ---
MS RN NOTES PRN GAS MEDICATION GIVEN TOLERATED WELL WILL CONTINUE TO MONITOR.
--- NOTE | 2021-06-22 | NUR ---
MS RN NOTES PT REFUSING REPOSITIONING AT TIS TIME X3 RISK AND BENEFITS EXPLAINED X3 PT CONTINUES TO REFUSE PT STATED " I CAN DO IT MYSELF I DON'T NEED YOU TO HELP ME IF I DO I WILL ASK YOU" WILL CONTINUE TO MONITOR.
--- NOTE | 2021-06-22 02:02 | NUR ---
MS RN NOTES PT REFUSING REPOSITIONING AT THIS TIME X3 RISK AND BENEFITS EXPLAINED X3 PT CONTINUES TO REFUSE. WHEN ATTEMPTING JUST MOVE THE HOB UP A LITTLE PT UPSET " DON'T TOUCH ME YOUR HURTING ME". ALL NEEDS MET AT THIS TIME WILL CONTINUE TO MONITOR.
[2021-06-22] MEDS: IPRATROPIUM NEB FS 0.5 MG/2.5 ML AMPUL.NEB NEB SCH ×5 (03:00→19:46)
--- NOTE | 2021-06-22 06:27 | NUR ---
MS RN CLOSING NOTES: PATIENT RESTING IN BED, A/OX2-3,ABLE TO VERBALIZED NEEDS. ICELANDIC SPEAKING. WITH EPISODES OF CONFUSION. PATIENT ON @3LPM TOLERATED WELL, NO SOB OR CARDIAC DISTRESS NOTED.LFA NOTED WITH SWOLLEN AND AV SHUNT IN PLACE NOTED W/ BRUIT AND SHRILL,COVERED WITH DRY DRESSING. SHELLY MIDLINE G#18 PATENT AND INTACT. UNABLE TO ASSESS SACRAL AND BACK AREA DUE TO REFUSAL OF SKIN ASSESSMENT. PATIENT ALSO REFUSED TO BE TURNED AND REPOSITIONED AT THIS TIME. SAFETY PRECAUTIONARY MEASURES MAINTAINED: BED LOCKED AND IN LOWEST POSITION, SIDERAILS UP X2. CALL LIGHT IN EASY REACH FOR ASSISTANCE/HELP. WILL ENDORSE CARE TO DAY SHIFT NURSE.
--- NOTE | 2021-06-22 07:00 | NUR ---
MS RN OPENING NOTES PATIENT LAYING IN BED, A/O X 2-3 WITH PERIODS OF CONFUSION, ABLE TO MAKE NEEDS KNOWN. [place]I SPEAKING. TOLERATING WELL ON ROOM AIR WITH NO S/S SOB OR RESPIRATORY DISTRESS. LFA NOTED SWOLLEN WITH AV SHUNT IN PLACE, BRUIT AND THRILL INTACT, COVERED IN DRY DRESSING. SHELLY MIDLINE # 18 CLEAN, INTACT, AND FLUSHING WELL. SAFETY PRECAUTIONS IN PLACE: BED IN LOWEST LOCKED POSITION, SIDE RAILS UP X 2, CALL LIGHT WITHIN REACH. WILL CONTINUE TO MONITOR.
[2021-06-22 07:09] LABS: ALBUMIN 2.7 g/dL (3.4-5.0); BILIRUBIN,TOTAL 0.5 mg/dL (0.2-1.0); CALCIUM, SERUM 9.5 mg/dL (8.5-10.1); CREATININE 7.3 mg/dL (0.6-1.3); POTASSIUM 5.5 mmol/L (3.5-5.1); TOTAL PROTEIN, SERUM 6.8 g/dL (6.4-8.2)
[2021-06-22] MEDS: SEVELAMER CARBONATE 800 MG TABLET PO SCH ×4 (07:34→17:36)
[2021-06-22] MEDS: NYSTATIN (PYXIS) 500,000 UNIT/5 ML ORAL.SUSP PO SCH ×5 (08:21→17:35)
[2021-06-22] MEDS: HALOPERIDOL 1 MG TABLET PO SCH ×4 (08:21→17:35)
[2021-06-22] MEDS: BACLOFEN (10 MG) 10 MG TABLET PO SCH ×4 (08:22→17:36)
[2021-06-22 08:29] VITALS: BP 106/62
--- NOTE | 2021-06-22 15:15 | NUR ---
MS STACEY NOTES PATIENT CONFUSED TODAY, HE HAS BEEN REFUSING ALL MEDICATIONS WELL HD CATH PLACEMENT. PER GUM COOK, PATIENT REQUIRES HD CATH PLACEMENT DUE TO LEFT AC SHUNT NO LONGER USABLE FOR DIALYSIS. ATTENDING MD INFORMED AND PSYCH CONSULT PLACED. Addendum: 06/22/21 at 1519 by DONNA MCCORMACK RN SPOKE WITH PATIENT SISTER WHO WAS UNABLE TO PERSUADE HIM TO TAKE MEDICATIONS AND ALLOW FOR HD CATH PLACEMENT. VOICEMAIL LEFT WITH PATIENT'S BROTHER. 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
--- NOTE | 2021-06-22 16:37 | NUR ---
MS IBARRA NOTE PATIENT AGREED TO HD CATH PLACEMENT AND HEMODIALYSIS WITH SIBLINGS PRESENT AT BEDSIDE, PATIENT SIGNED CONSENT FORMS FOR HD CATH PLACEMENT AND HEMODIALYSIS IN PRESENCE OF FAMILY. NOTIFIED. ORDERS RECEIVED FROM FOR 10 UNITS INSULIN AND D50 PUSH FOR ELEVATED POTASSIUM. Addendum: 06/22/21 at 1950 by DONNA MCCORMACK RN ORDERS FOR 10 UNITS INSULIN AND D50 PUSH ONE TIME DOSES WERE IMPLEMENTED DIRECTED.
[2021-06-22] MEDS ORDERED: INSULIN REGULAR, HUMAN 100 UNIT/ML 3 ML VIAL SQ ONE (17:00)
[2021-06-22] MEDS ORDERED: DEXTROSE 50%-WATER 50 ML DISP.SYRIN IVP ONE (17:00)
[2021-06-22] MEDS: ATORVASTATIN 40 MG TABLET PO SCH (17:35)
[2021-06-22] MEDS: ACETAMINOPHEN 325 MG TABLET PO PRN (18:23)
--- NOTE | 2021-06-22 19:00 | NUR ---
MS STACEY CLOSING NOTES PATIENT LAYING IN BED, A/O X 2-3 WITH PERIODS OF CONFUSION, ABLE TO MAKE NEEDS KNOWN. SWEDISH SPEAKING. TOLERATING WELL ON ROOM AIR WITH NO S/S SOB OR RESPIRATORY DISTRESS. LFA NOTED SWOLLEN WITH AV SHUNT IN PLACE, BRUIT AND THRILL INTACT, COVERED IN DRY DRESSING. SHELLY MIDLINE # 18 CLEAN, INTACT, AND FLUSHING WELL WITH NS @ 100 ML/HR. R DORSAL HAND SL CLEAN, INTACT, AND FLUSHING WELL. SAFETY PRECAUTIONS IN PLACE: BED IN LOWEST LOCKED POSITION, SIDE RAILS UP X 2, CALL LIGHT WITHIN REACH. ALL NEEDS MET. WILL ENDORSE TO CAR PRE COOLER FOR ALBERTO. Addendum: 06/22/21 at 1959 by DONNA MCCORMACK RN UNABLE TO ASSESS SACRAL AND BACK AREA DUE TO REFUSAL OF SKIN ASSESSMENT DURING SHIFT. Addendum: 06/23/21 at 0650 by DONNA MCCORMACK RN WAS INFORMED BY PATIENT AND THAT PATIENT'S OUTSIDE NEAR EASTERN ARCHAEOLOGY LECTURER DR SEN ([phone]) HAD PATIENT ON A DIFFERENT INSULIN REGIME THAN HE HAD BEEN RECEIVING AT HIS [facility]. ATTENDING MD WAS INFORMED AND CONTACT INFORMATION FOR NEAR EASTERN ARCHAEOLOGY LECTURER PROVIDED, I WILL FOLLOW UP WITH ENOCRINOLOGIST TODAY 06/23. Addendum: 06/23/21 at 0651 by DONNA MCCORMACK RN DISREGARD PREVIOUS ADDENDUM
--- NOTE | 2021-06-22 19:00 | NUR ---
MS RN NOTES PATIENT LAYING IN BED, A/O X 2-3 WITH PERIODS OF CONFUSION, ABLE TO MAKE NEEDS KNOWN. CITIZEN OF [place] SPEAKING. TOLERATING WELL ON ROOM AIR WITH NO S/S SOB OR RESPIRATORY DISTRESS. LFA NOTED SWOLLEN WITH AV SHUNT IN PLACE, BRUIT AND THRILL INTACT, COVERED IN DRY DRESSING. SHELLY MIDLINE # 18 CLEAN, INTACT, AND FLUSHING WELL WITH NS @ 100 ML/HR. R DORSAL HAND SL CLEAN, INTACT, AND FLUSHING WELL. SAFETY PRECAUTIONS IN PLACE: BED IN LOWEST LOCKED POSITION, SIDE RAILS UP X 2, CALL LIGHT WITHIN REACH. ALL NEEDS MET. 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
--- NOTE | 2021-06-22 19:47 | NUR ---
MS RN OPENING NOTES PATIENT RECEIVED IN A/O X 2-3 WITH PERIODS OF CONFUSION, ABLE TO MAKE NEEDS KNOWN. [place] SPEAKING. TOLERATING WELL ON ROOM AIR WITH NO SIGN SOB OR RESPIRATORY DISTRESS. LFA NOTED SWOLLEN WITH AV SHUNT IN PLACE, BRUIT AND THRILL INTACT, COVERED IN DRY DRESSING. SHELLY MIDLINE # 18 CLEAN, INTACT, AND FLUSHING WELL. SAFETY PRECAUTIONS IN PLACE: BED IN LOWEST LOCKED POSITION, SIDE RAILS UP X 2, CALL LIGHT WITHIN REACH. WILL CONTINUE TO MONITOR.
[2021-06-22 20:31] VITALS: BP 94/63
[2021-06-23] MEDS: IPRATROPIUM NEB FS 0.5 MG/2.5 ML AMPUL.NEB NEB SCH ×7 (00:06→23:30)
[2021-06-23 02:55] VITALS: BP 94/63
[2021-06-23 06:38] LABS: ALBUMIN 2.7 g/dL (3.4-5.0); BILIRUBIN,TOTAL 0.5 mg/dL (0.2-1.0); CALCIUM, SERUM 9.5 mg/dL (8.5-10.1); TOTAL PROTEIN, SERUM 6.8 g/dL (6.4-8.2)
[2021-06-23 06:49] LABS: POTASSIUM 6.5 mmol/L (3.5-5.1)
[2021-06-23 06:50] LABS: CREATININE 7.9 mg/dL (0.6-1.3)
--- NOTE | 2021-06-23 07:00 | NUR ---
MS RN OPENING NOTES PATIENT LAYING IN BED, A/O X 2-3 WITH PERIODS OF CONFUSION, ABLE TO MAKE NEEDS KNOWN. [place] SPEAKING. TOLERATING WELL ON ROOM AIR WITH NO SIGN SOB OR RESPIRATORY DISTRESS. LFA NOTED SWOLLEN WITH AV SHUNT IN PLACE, BRUIT AND THRILL INTACT, COVERED IN DRY DRESSING. SHELLY MIDLINE # 18 CLEAN, INTACT, AND FLUSHING WELL. SAFETY PRECAUTIONS IN PLACE: BED IN LOWEST LOCKED POSITION, SIDE RAILS UP X 2, CALL LIGHT WITHIN REACH. WILL CONTINUE TO MONITOR.
--- NOTE | 2021-06-23 07:51 | NUR ---
MS STACEY ROY NOTES PATIENT RECEIVED IN A/O X 2-3 WITH PERIODS OF CONFUSION, ABLE TO MAKE NEEDS KNOWN. [place] SPEAKING. TOLERATING WELL ON ROOM AIR WITH NO SIGN SOB OR RESPIRATORY DISTRESS. LFA NOTED SWOLLEN WITH AV SHUNT IN PLACE, BRUIT AND THRILL INTACT, COVERED IN DRY DRESSING. SHELLY MIDLINE # 18 CLEAN, INTACT, AND FLUSHING WELL. SAFETY PRECAUTIONS IN PLACE: BED IN LOWEST LOCKED POSITION, SIDE RAILS UP X 2, CALL LIGHT WITHIN REACH. WILL ENDORSE TO NEXT SHIFT
[2021-06-23] MEDS: SEVELAMER CARBONATE 800 MG TABLET PO SCH ×3 (07:55→17:07)
[2021-06-23 08:00] VITALS: BP 135/74
[2021-06-23] MEDS: NYSTATIN (PYXIS) 500,000 UNIT/5 ML ORAL.SUSP PO SCH ×4 (08:23→17:00)
[2021-06-23] MEDS: BACLOFEN (10 MG) 10 MG TABLET PO SCH ×3 (08:24→16:07)
[2021-06-23] MEDS: HALOPERIDOL 1 MG TABLET PO SCH ×3 (08:24→16:08)
[2021-06-23] MEDS: ACETAMINOPHEN 325 MG TABLET PO PRN ×3 (08:52→22:23)
--- NOTE | 2021-06-23 08:52 | NUR ---
MS RN NOTES PATIENT COMPLAINT OF 3/10 ABDOMINAL PAIN AND REQUESTING MEDICATION. PRN ACETAMINOPHEN 650 MG PO ADMINISTERED ORDERED. WILL CONTINUE TO MONITOR FOR S/S OF PAIN.
[2021-06-23] MEDS ORDERED: SODIUM POLYSTYRENE SULFONATE 15 G/60 ML BOTTLE PO ONE (09:30)
[2021-06-23] MEDS ORDERED: DEXTROSE 50%-WATER 50 ML DISP.SYRIN IVP ONE (09:30)
[2021-06-23] MEDS ORDERED: INSULIN REGULAR, HUMAN 100 UNIT/ML 3 ML VIAL SQ ONE (09:30)
[2021-06-23] MEDS ORDERED: Calcium Gluconate 1GM/10ML 9.3 MEQ in IV D5W 250 ML IV ONE (10:00)
[2021-06-23 13:40] LABS: POTASSIUM 5.9 mmol/L (3.5-5.1)
[2021-06-23] MEDS: SIMETHICONE 80 MG TAB.CHEW PO PRN (14:33)
--- NOTE | 2021-06-23 14:35 | NUR ---
MS RN NOTES PATIENT COMPLAINT OF 6/10 STOMACH PAIN, SIMETHICONE 80 MG CHEWABLE TAB ADMINISTERED ORDERED. WILL CONTINUE TO MONITOR FOR S/S STOMACH PAIN.
[2021-06-23 15:57] VITALS: BP 129/79
[2021-06-23] MEDS: ATORVASTATIN 40 MG TABLET PO SCH (17:07)
--- NOTE | 2021-06-23 19:00 | NUR ---
MS RN CLOSING NOTES PATIENT LAYING IN BED, A/O X 2-3 WITH PERIODS OF CONFUSION, ABLE TO MAKE NEEDS KNOWN. BULGARIAN SPEAKING. TOLERATING WELL ON ROOM AIR WITH NO SIGN SOB OR RESPIRATORY DISTRESS. LFA NOTED SWOLLEN WITH AV SHUNT IN PLACE, BRUIT AND THRILL INTACT, COVERED IN DRY DRESSING. SHELLY MIDLINE # 18 CLEAN, INTACT, AND FLUSHING WELL. HD CATH PRESENT IN R GROIN, HD ATTEMPTED TODAY BUT STOPPED EARLY DUE TO LOW BP AND NO FLUID REMOVED. FULL SKIN ASSESSMENT PERFORMED TODAY AND PATIENT'S BACK NOTED WITH NO SKIN BREAKDOWN. SAFETY PRECAUTIONS IN PLACE: BED IN LOWEST LOCKED POSITION, SIDE RAILS UP X 2, CALL LIGHT WITHIN REACH. ALL NEEDS MET, ALL DUE PAIN MEDICATIONS ADMINISTERED ORDERED. WILL ENDORSE TO NEXT SHIFT FOR ALBERTO.
--- NOTE | 2021-06-23 19:30 | NUR ---
MS RN OPENING NOTE RECEIVED PATIENT BED WITH EYES CLOSED, EASY TO AROUSE. 2 FAMILY MEMBERS AT BEDSIDE. NO S/S OF APPARENT DISTRESS. NO C/ OF PAIN AT THIS TIME. NOTED TO HAVE R. GROIN HD CATH IN PLACE AND R. UA MIDLINE-- IV NS RUNNING AT 100ML/HR. SAFETY IN PLACE. WILL CONTINUE WITH PLAN OF CARE FOR PATIENT.
[2021-06-23 20:00] VITALS: BP 123/60
--- NOTE | 2021-06-23 20:16 | NUR ---
RT PT REFUSED TX AT THIS TIME, STACEY PICKARD INFORMED
[2021-06-24] MEDS: IPRATROPIUM NEB FS 0.5 MG/2.5 ML AMPUL.NEB NEB SCH ×6 (03:19→23:30)
[2021-06-24] MEDS: IV NS 0.9% 1,000 ML IV PRN ×2 (04:29→17:42)
--- NOTE | 2021-06-24 07:00 | NUR ---
MS RN OPENING NOTES PATIENT LAYING IN BED, A/O X 2-3 WITH PERIODS OF CONFUSION, ABLE TO MAKE NEEDS KNOWN. SYRIAC SPEAKING. TOLERATING WELL ON ROOM AIR WITH NO SIGN OF SOB OR RESPIRATORY DISTRESS. LFA NOTED SWOLLEN WITH AV SHUNT IN PLACE, BRUIT AND THRILL INTACT, COVERED IN DRY DRESSING. SHELLY MIDLINE # 18 CLEAN, INTACT, AND FLUSHING WELL. HD CATH PRESENT IN R GROIN. SAFETY PRECAUTIONS IN PLACE: BED IN LOWEST LOCKED POSITION, SIDE RAILS UP X 2, CALL LIGHT WITHIN REACH. WILL CONTINUE TO MONITOR.
--- NOTE | 2021-06-24 07:15 | NUR ---
MS RN NOTE NEEDS ATTENDED. NO SIGNIFICANT CHANGE WITH PATIENT. REPORT GIVEN TO DONNA FOR CONTINUITY OF CARE.
[2021-06-24] MEDS: SEVELAMER CARBONATE 800 MG TABLET PO SCH ×4 (07:23→17:23)
[2021-06-24 07:37] LABS: ALBUMIN 2.6 g/dL (3.4-5.0); BILIRUBIN,TOTAL 0.5 mg/dL (0.2-1.0); CALCIUM, SERUM 9.3 mg/dL (8.5-10.1); CREATININE 5.9 mg/dL (0.6-1.3); TOTAL PROTEIN, SERUM 6.4 g/dL (6.4-8.2)
[2021-06-24] MEDS: NYSTATIN (PYXIS) 500,000 UNIT/5 ML ORAL.SUSP PO SCH ×4 (08:25→17:22)
[2021-06-24] MEDS: BACLOFEN (10 MG) 10 MG TABLET PO SCH ×4 (08:25→17:23)
[2021-06-24] MEDS: HALOPERIDOL 1 MG TABLET PO SCH ×4 (08:25→17:23)
[2021-06-24] MEDS: ACETAMINOPHEN 325 MG TABLET PO PRN ×3 (08:28→23:36)
--- NOTE | 2021-06-24 08:29 | NUR ---
MS RN NOTES PATIENT COMPLAINT OF 3/10 STOMACH PAIN AND REQUESTING MEDICATION. PRN TYLENOL 650 MG PO ADMINISTERED ORDERED. WILL CONTINUE TO MONITOR FOR S/S PAIN.
[2021-06-24 08:39] VITALS: BP 112/62
[2021-06-24] MEDS: SIMETHICONE 80 MG TAB.CHEW PO PRN (12:50)
[2021-06-24 16:38] VITALS: BP 117/63
[2021-06-24] MEDS: ATORVASTATIN 40 MG TABLET PO SCH (17:23)
--- NOTE | 2021-06-24 17:33 | NUR ---
MS RN NOTES PATIENT COMPLAINT OF 3/10 ABDOMINAL PAIN AND REQUESTING MEDICATION. PRN TYLENOL 650 MG PO ADMINISTERED ORDERED. WILL CONTINUE TO MONITOR FOR S/S OF PAIN.
--- NOTE | 2021-06-24 19:00 | NUR ---
MS RN CLOSING NOTES PATIENT LAYING IN BED, A/O X 2-3 WITH PERIODS OF CONFUSION, ABLE TO MAKE NEEDS KNOWN. [place] SPEAKING. TOLERATING WELL ON 3 LPM VIA CANNULA WITH NO SIGN OF SOB OR RESPIRATORY DISTRESS. LFA NOTED SWOLLEN WITH AV SHUNT IN PLACE, BRUIT AND THRILL INTACT, COVERED IN DRY DRESSING. SHELLY MIDLINE # 18 CLEAN, INTACT, AND FLUSHING WELL. HD CATH PRESENT IN R GROIN. SAFETY PRECAUTIONS IN PLACE: BED IN LOWEST LOCKED POSITION, SIDE RAILS UP X 2, CALL LIGHT WITHIN REACH. ALL NEEDS MET. WILL ENDORSE TO WET INSPECTOR OPTICAL GLASS FOR ALBERTO.
--- NOTE | 2021-06-24 19:30 | NUR ---
MS RN OPENING NOTES RECEIVED PATIENT IN BED; AWAKE, ALERT AND ORIENTED X2, LIBYAN SPEAKING. WITH O2 INHALATION OF 2LPM VIA NASAL CANNULA; TOLERATING WELL. BREATHING IS EVEN AND NONLABORED. WITH IV ACCESS ON RIGHT UPPER ARM MIDLINE; PATENT AND INTACT. NEEDS ATTENDED. SAFETY MEASURES IN PLACED: CALL LIGHT AND TABLE WITHIN EASY REACH, SIDE RAILS UP X2, BED IN LOWEST LOCKED POSITION. WILL CONTINUE PLAN OF CARE.
[2021-06-24 20:00] VITALS: BP 114/70
[2021-06-24 20:15] VITALS: BP 114/70
--- NOTE | 2021-06-25 01:00 | NUR ---
MS RN NOTES PATIENT REFUSED TO HAVE PICTURES TAKEN
[2021-06-25] MEDS: IPRATROPIUM NEB FS 0.5 MG/2.5 ML AMPUL.NEB NEB SCH ×6 (03:07→23:30)
[2021-06-25 06:30] LABS: BASOPHILS % (AUTO) 0.5 % (0.0-2.0); EOSINOPHILS % (AUTO) 1.7 % (0.0-6.0); HEMATOCRIT 25 % (39-51); HEMOGLOBIN 8.2 g/dL (13.5-17.5); LYMPHOCYTES # (AUTO) 0.7 K/uL (0.8-4.8); LYMPHOCYTES % (AUTO) 14.5 % (20.0-44.0); MEAN CORPUSCULAR HGB CONC 33 g/dl (31.0-36.0); MEAN CORPUSCULAR VOLUME 89 fL (80-96); MONOCYTES # (AUTO) 0.4 K/uL (0.1-1.30); NEUTROPHILS # (AUTO) 3.8 K/uL (1.8-8.9); NEUTROPHILS % (AUTO) 76.3 % (43.0-81.0); PLATELET COUNT (AUTO) 168 K/uL (150-450); RED BLOOD CELL COUNT(AUTO) 2.82 MIL/uL (4.5-6.0)
[2021-06-25 06:59] LABS: ALBUMIN 2.5 g/dL (3.4-5.0); BILIRUBIN,TOTAL 0.5 mg/dL (0.2-1.0); CALCIUM, SERUM 9.3 mg/dL (8.5-10.1); CREATININE 6.6 mg/dL (0.6-1.3); MAGNESIUM 3.1 mg/dL (1.8-2.4); PHOSPHORUS 4.3 mg/dL (2.5-4.9); POTASSIUM 4.9 mmol/L (3.5-5.1); TOTAL PROTEIN, SERUM 6.4 g/dL (6.4-8.2)
--- NOTE | 2021-06-25 07:00 | NUR ---
MS RN CLOSING NOTES PATIENT IN BED; AWAKE, ALERT AND ORIENTED X2, HONDURAN SPEAKING. WITH O2 INHALATION OF 2LPM VIA NASAL CANNULA; TOLERATING WELL. BREATHING IS EVEN AND NONLABORED. WITH IV ACCESS ON RIGHT UPPER ARM MIDLINE; PATENT AND INTACT. NEEDS ATTENDED. SAFETY MEASURES IN PLACE. ENDORSED TO MORNING SHIFT FOR CONTINUITY OF CARE.
--- NOTE | 2021-06-25 07:16 | NUR ---
MS RN OPENING NOTES RECEIVED PATIENT IN BED. AWAKE, ALERT AND ORIENTED X2, IVORIAN SPEAKING. WITH O2 INHALATION OF 2LPM VIA NASAL CANNULA WHICH PATIENT REMOVES MOST OF THE TIME; TOLERATING WELL. BREATHING IS EVEN AND NONLABORED. WITH IV ACCESS ON RIGHT UPPER ARM MIDLINE; PATENT AND INTACT. SAFETY MEASURES IN PLACED: CALL LIGHT AND TABLE WITHIN EASY REACH, SIDE RAILS UP X2, BED IN LOWEST LOCKED POSITION. COMFORT MEASURES PROVIDED.
[2021-06-25 08:00] VITALS: BP 137/65
[2021-06-25] MEDS: BACLOFEN (10 MG) 10 MG TABLET PO SCH ×3 (08:49→18:00)
[2021-06-25] MEDS: HALOPERIDOL 1 MG TABLET PO SCH ×3 (08:49→18:00)
[2021-06-25] MEDS: SEVELAMER CARBONATE 800 MG TABLET PO SCH ×3 (08:49→18:00)
[2021-06-25] MEDS: NYSTATIN (PYXIS) 500,000 UNIT/5 ML ORAL.SUSP PO SCH ×3 (08:49→18:00)
[2021-06-25] MEDS: ACETAMINOPHEN 325 MG TABLET PO PRN (08:49)
[2021-06-25] MEDS: NEPRO VAN 237 ML CAN PO SCH (08:50)
--- NOTE | 2021-06-25 13:00 | NUR ---
MS RN NOTE SPOKE WITH DR. PATINO. HE WILL SCHEDULE PATIENT FOR PERMACATH PLACEMENT EITHER TOMORROW OR FRIDAY. AWAITING CALL BACK FROM .
[2021-06-25 16:00] VITALS: BP 106/63
[2021-06-25] MEDS: ATORVASTATIN 40 MG TABLET PO SCH (18:00)
[2021-06-25] MEDS: MIDODRINE HCL (5MG) 5 MG TABLET PO PRN (18:17)
[2021-06-25] MEDS: LORAZEPAM INJ 2 MG/ML VIAL IM PRN (18:18)
[2021-06-25] MEDS: ALBUMIN 25% 25 GM in PREMIX 1 EA IV PRN (18:41)
--- NOTE | 2021-06-25 19:05 | NUR ---
MS RN CLOSING NOTES RECEIVED PATIENT IN BED. AWAKE, ALERT AND ORIENTED X2, ANGOLAN SPEAKING. WITH O2 INHALATION OF 2LPM VIA NASAL CANNULA WHICH PATIENT REMOVES MOST OF THE TIME; TOLERATING WELL. BREATHING IS EVEN AND NONLABORED. WITH IV ACCESS ON RIGHT UPPER ARM MIDLINE; PATENT AND INTACT. SAFETY MEASURES IN PLACED: CALL LIGHT AND TABLE WITHIN EASY REACH, SIDE RAILS UP X2, BED IN LOWEST LOCKED POSITION. COMFORT MEASURES PROVIDED. ENDORSED TO NEXT SHIFT FOR CONTINUITY OF CARE.
--- NOTE | 2021-06-25 19:54 | NUR ---
MS RN OPENING NOTES RECEIVED PATIENT IN BED. AWAKE, ALERT AND ORIENTED X2, ARMENIAN SPEAKING. WITH O2 INHALATION OF 2LPM VIA NASAL CANNULA WHICH PATIENT REMOVES MOST OF THE TIME; TOLERATING WELL. BREATHING IS EVEN AND NONLABORED.PT ONGOING DIALYSIS IN THE BED SIDE RUBIO WELL. WITH IV ACCESS ON RIGHT UPPER ARM MIDLINE; PATENT AND INTACT. SAFETY MEASURES IN PLACED: CALL LIGHT AND TABLE WITHIN EASY REACH, SIDE RAILS UP X2, BED IN LOWEST LOCKED POSITION. COMFORT MEASURES PROVIDED.
[2021-06-25 20:00] VITALS: BP 124/80
[2021-06-25 23:56] VITALS: BP 124/80
[2021-06-26] MEDS: IPRATROPIUM NEB FS 0.5 MG/2.5 ML AMPUL.NEB NEB SCH ×6 (03:30→23:30)
--- NOTE | 2021-06-26 06:53 | NUR ---
RN CLOSING NOTES. PATIENT IN BED SLEEPING BUT EASY TO AROUSED ON NASAL CANNULA WITH 2L OXYGEN INPLACE RUBIO WELL.PT BREATHING DEEPLY AND HEAVY O2SAT 96%.V/S WITHIN NORMAL LIMITS.NO COMPLAINE OF PAIN/DISCOMFORT DURING SHIFT.IV ACCESS ON SHLELY MIDLINE AND R GROIN HD CATH INTACT AND PATENT.CALL LIGHT WITHIN REACH.SAFETY PRECAUTION IN PLACE.BED LOCK AND LOW POSITION.WILL ENDORSE TO NEXT SHIFT.
--- NOTE | 2021-06-26 07:30 | NUR ---
MS RN OPENING NOTES RECEIVED PATIENT IN BED AWAKE, A/O X2, ALGERIAN SPEAKING. ON O2 AT 2LPM VIA NASAL CANNULA TOLERATING WELL. BREATHING IS EVEN AND NONLABORED. WITH IV ACCESS AT RIGHT FOREARM G20 SALINE LOCKED, PATENT AND INTACT. SAFETY MEASURES IN PLACED. CALL LIGHT WITHIN REACH. BED ON LOWEST, LOCKED POSITION, SIDE RAILS UP X2. WILL CONTINUE TO MONITOR.
[2021-06-26] MEDS: SEVELAMER CARBONATE 800 MG TABLET PO SCH ×4 (08:00→17:45)
[2021-06-26] MEDS: BACLOFEN (10 MG) 10 MG TABLET PO SCH ×4 (09:00→17:45)
[2021-06-26] MEDS: NYSTATIN (PYXIS) 500,000 UNIT/5 ML ORAL.SUSP PO SCH ×4 (09:00→17:45)
[2021-06-26] MEDS: NEPRO VAN 237 ML CAN PO SCH (09:00)
[2021-06-26] MEDS: HALOPERIDOL 1 MG TABLET PO SCH ×4 (09:00→17:45)
--- NOTE | 2021-06-26 09:00 | NUR ---
RN NOTE PATIENT REFUSED PO MEDS.
[2021-06-26 12:36] LABS: BASOPHILS # (AUTO) 0.1 K/uL (0.0-0.2); BASOPHILS % (AUTO) 1.4 % (0.0-2.0); EOSINOPHILS % (AUTO) 1.9 % (0.0-6.0); HEMATOCRIT 27 % (39-51); HEMOGLOBIN 8.7 g/dL (13.5-17.5); LYMPHOCYTES # (AUTO) 0.7 K/uL (0.8-4.8); LYMPHOCYTES % (AUTO) 13.3 % (20.0-44.0); MEAN CORPUSCULAR HGB CONC 33 g/dl (31.0-36.0); MEAN CORPUSCULAR VOLUME 89 fL (80-96); MONOCYTES # (AUTO) 0.3 K/uL (0.1-1.30); NEUTROPHILS # (AUTO) 3.8 K/uL (1.8-8.9); NEUTROPHILS % (AUTO) 76.4 % (43.0-81.0); PLATELET COUNT (AUTO) 214 K/uL (150-450); RED BLOOD CELL COUNT(AUTO) 3.01 MIL/uL (4.5-6.0); WHITE BLOOD COUNT (AUTO) 4.9 K/uL (4.3-11.0)
[2021-06-26] MEDS: ACETAMINOPHEN 325 MG TABLET PO PRN (12:50)
[2021-06-26 13:00] LABS: ALBUMIN 2.7 g/dL (3.4-5.0); BILIRUBIN,TOTAL 0.5 mg/dL (0.2-1.0); CALCIUM, SERUM 9.1 mg/dL (8.5-10.1); TOTAL PROTEIN, SERUM 6.6 g/dL (6.4-8.2)
[2021-06-26] MEDS: MIDODRINE HCL (5MG) 5 MG TABLET PO SCH ×3 (13:00→21:00)
[2021-06-26 13:14] LABS: POTASSIUM 4.4 mmol/L (3.5-5.1)
[2021-06-26 16:11] VITALS: BP 89/59
[2021-06-26] MEDS: ATORVASTATIN 40 MG TABLET PO SCH (17:45)
[2021-06-26] MEDS: VANCOMYCIN 500 MG in IV D5W 100 ML IV PRN (17:48)
--- NOTE | 2021-06-26 19:20 | NUR ---
MS RN CLOSING NOTES PATIENT IN BED AWAKE, A/O X2, SLOVAK SPEAKING. ON O2 AT 2LPM VIA NASAL CANNULA TOLERATING WELL. BREATHING IS EVEN AND NONLABORED. WITH IV ACCESS AT RIGHT FOREARM G20 SALINE LOCKED, PATENT AND INTACT. DUE MEDS GIVEN. S/P HEMODIALYSIS WITH 1L OUTPUT. SAFETY MEASURES IN PLACED. CALL LIGHT WITHIN REACH. BED ON LOWEST, LOCKED POSITION, SIDE RAILS UP X2. WILL ENDORSE TO NEXT SHIFT FOR ALBERTO.
[2021-06-26 19:48] VITALS: BP 93/54
--- NOTE | 2021-06-26 20:04 | NUR ---
MS RN OPENING NOTES RECEIVED PATIENT IN BED. AWAKE, ALERT AND ORIENTED X2, HONG KONGER SPEAKING. WITH O2 INHALATION OF 2LPM VIA NASAL CANNULA WHICH PATIENT REMOVES MOST OF THE TIME; TOLERATING WELL. BREATHING IS EVEN AND NONLABORED.PT ONGOING DIALYSIS IN THE BED SIDE RUBIO WELL. WITH IV ACCESS ON RIGHT UPPER ARM MIDLINE; PATENT AND INTACT. SAFETY MEASURES IN PLACED: CALL LIGHT AND TABLE WITHIN EASY REACH, SIDE RAILS UP X2, BED IN LOWEST LOCKED POSITION.CONTINUE TO MONITOR
[2021-06-27] MEDS: ACETAMINOPHEN 325 MG TABLET PO PRN ×3 (01:47→19:05)
[2021-06-27] MEDS: IPRATROPIUM NEB FS 0.5 MG/2.5 ML AMPUL.NEB NEB SCH ×5 (03:30→20:17)
--- NOTE | 2021-06-27 06:46 | NUR ---
MS RN CLOSING NOTES RECEIVED PATIENT IN BED. AWAKE, ALERT AND ORIENTED X2, CONGOLESE SPEAKING. WITH O2 INHALATION OF 2LPM VIA NASAL CANNULA WHICH PATIENT REMOVES MOST OF THE TIME; TOLERATING WELL. BREATHING IS EVEN AND NONLABORED.PT ONGOING DIALYSIS IN THE BED SIDE RUBIO WELL. WITH IV ACCESS ON RIGHT UPPER ARM MIDLINE; PATENT AND INTACT. SAFETY MEASURES IN PLACED: CALL LIGHT AND TABLE WITHIN EASY REACH, SIDE RAILS UP X2, BED IN LOWEST LOCKED POSITION.WILL ENDORSED NEXT SHIFT
[2021-06-27 06:59] LABS: CALCIUM, SERUM 9.3 mg/dL (8.5-10.1); CREATININE 4.5 mg/dL (0.6-1.3); POTASSIUM 4.1 mmol/L (3.5-5.1)
[2021-06-27 07:04] LABS: ALBUMIN 2.6 g/dL (3.4-5.0); BILIRUBIN,TOTAL 0.5 mg/dL (0.2-1.0); TOTAL PROTEIN, SERUM 6.3 g/dL (6.4-8.2)
--- NOTE | 2021-06-27 07:30 | NUR ---
MS RN OPENING NOTES RECEIVED PATIENT IN BED. AWAKE, ALERT AND ORIENTED X2, ISRAELI SPEAKING. WITH O2 INHALATION OF 2LPM VIA NASAL CANNULA WHICH PATIENT REMOVES MOST OF THE TIME; TOLERATING WELL. BREATHING IS EVEN AND NONLABORED.PT HAD HEMODIALYSIS BY THE BED SIDE AND HE TOLERATED WELL. IV ACCESS RFA PATENT AND INTACT. SAFETY MEASURES IN PLACED: CALL LIGHT AND TABLE WITHIN EASY REACH, SIDE RAILS UP X2, BED IN LOWEST LOCKED POSITION.WILL CONTINUE TO MONITOR FOR ALBERTO
[2021-06-27 08:00] VITALS: BP 88/43
[2021-06-27] MEDS: SEVELAMER CARBONATE 800 MG TABLET PO SCH ×3 (08:00→17:36)
[2021-06-27 08:17] LABS: BASOPHILS % (AUTO) 0.8 % (0.0-2.0); EOSINOPHILS % (AUTO) 2.1 % (0.0-6.0); HEMATOCRIT 24 % (39-51); LYMPHOCYTES # (AUTO) 1.2 K/uL (0.8-4.8); LYMPHOCYTES % (AUTO) 19.3 % (20.0-44.0); MEAN CORPUSCULAR HGB CONC 33 g/dl (31.0-36.0); MEAN CORPUSCULAR VOLUME 88 fL (80-96); MONOCYTES # (AUTO) 0.5 K/uL (0.1-1.30); MONOCYTES % (AUTO) 8.8 % (2.0-12.0); NEUTROPHILS # (AUTO) 4.2 K/uL (1.8-8.9); PLATELET COUNT (AUTO) 203 K/uL (150-450); RED BLOOD CELL COUNT(AUTO) 2.74 MIL/uL (4.5-6.0)
[2021-06-27] MEDS: MIDODRINE HCL (5MG) 5 MG TABLET PO SCH ×3 (09:00→21:39)
[2021-06-27] MEDS: NYSTATIN (PYXIS) 500,000 UNIT/5 ML ORAL.SUSP PO SCH ×3 (09:00→17:36)
[2021-06-27] MEDS: NEPRO VAN 237 ML CAN PO SCH (09:00)
[2021-06-27] MEDS: BACLOFEN (10 MG) 10 MG TABLET PO SCH ×3 (09:00→17:36)
[2021-06-27] MEDS: HALOPERIDOL 1 MG TABLET PO SCH ×3 (09:00→17:36)
[2021-06-27] MEDS ORDERED: ANESTHESIA TRAY IN PYXIS 1 EA TRAY MC ONE (10:42)
[2021-06-27] MEDS ORDERED: HEPARIN SODIUM, PORCINE 1,000 UNIT/ML VIAL ONE (10:43)
[2021-06-27] MEDS ORDERED: LIDOCAINE 1% INJ 50 ML MDV IJ ONE (10:44)
[2021-06-27] MEDS: ALBUMIN 25% 25 GM in PREMIX 1 EA IV PRN (11:14)
[2021-06-27] MEDS ORDERED: IOHEXOL 240MG/ML 50 ML IV ONE (13:32)
[2021-06-27] MEDS ORDERED: FENTANYL PF 100MCG/2ML AMPUL ONE (14:55)
[2021-06-27 16:00] VITALS: BP 128/85
--- NOTE | 2021-06-27 16:00 | NUR ---
RN NOTE RECEIVED PATIENT FROM OR ENDORSED BY STACEY VILLARREAL VIA HOSPITAL BED. PATIENT IS AWAKE AND A/O X2. ON ROOM AIR TOLERATING WELL. NO SOB NOTED. S/P PERMACATH PLACEMENT AT THE RIGHT FEMORAL AREA FOR HEMODIALYSIS. NO SIGNS OF BLEEDING. DRESSING IS DRY AND INTACT. WITH STABLE VITAL SIGNS.
[2021-06-27] MEDS: ATORVASTATIN 40 MG TABLET PO SCH (17:36)
--- NOTE | 2021-06-27 18:41 | NUR ---
MS RN CLOSING NOTES PATIENT RESTING ON BED AND A/O X2, YI SPEAKING. ON ON AND OFF O2 AT 2LPM VIA NASAL CANNULA TOLERATING WELL. BREATHING IS EVEN AND NONLABORED. WITH IV ACCESS AT RIGHT FOREARM G20 AND AT LEFT GROIN G20 MIDLINE SALINE LOCKED, PATENT AND INTACT. WITH RIGHT FEMORAL HD PERMACATH WITH CLEAN AND DRY DRESSING. DUE MEDS GIVEN. S/P HEMODIALYSIS WITH 1L OUTPUT. SAFETY MEASURES IN PLACED. CALL LIGHT WITHIN REACH. BED ON LOWEST, LOCKED POSITION, SIDE RAILS UP X2. WILL ENDORSE TO NEXT SHIFT FOR ALBERTO.
[2021-06-27] MEDS: VANCOMYCIN 500 MG in IV D5W 100 ML IV PRN ×2 (19:40→19:45)
[2021-06-27 20:00] VITALS: BP 98/62
--- NOTE | 2021-06-27 20:10 | NUR ---
MS/TELE/RN RECEIVE PATIENT LYING IN BED AWAKE, ALERT, ORIENTED, APPEARS COMFORTABLE, NO C/O PAIN, NO SIGNS OF DISTRESS NOTED, CALL LIGHT IN REACH, FALL PRECAUTIONS PER PROTOCOL IMPLEMENTED, WILL MONITOR.
[2021-06-27] MEDS: SIMETHICONE 80 MG TAB.CHEW PO PRN (21:49)
[2021-06-27] MEDS ORDERED: LORAZEPAM 1 MG TABLET PO ONE (22:30)
[2021-06-28] MEDS: IPRATROPIUM NEB FS 0.5 MG/2.5 ML AMPUL.NEB NEB SCH ×7 (00:06→23:45)
[2021-06-28] MEDS: ACETAMINOPHEN 325 MG TABLET PO PRN ×3 (02:33→17:33)
--- NOTE | 2021-06-28 03:18 | NUR ---
MS/TELE/RN AT ABOUT 21:40 LAST NIGHT,PATIENT REQUESTED SLEEPING PILL, NOTIFIED BILLIE CAMPOS NP, RECEIVED ORDER FOR ATIVAN MG PO X 1. AT THE TIME THE MED WAS VERIFIED BY THE PHARMACY, THE PATIENT WAS NOTED TO BE SLEEPING ALREADY. WHEN PATIENT WOKE UP, OFFERED ATIVAN BUT WAS NOT INTERESTED AT THAT TIME. MEDICATION NOT ADMINISTERED OF THIS WRITING.
[2021-06-28 06:11] LABS: BASOPHILS % (AUTO) 0.6 % (0.0-2.0); HEMATOCRIT 22 % (39-51); HEMOGLOBIN 7.2 g/dL (13.5-17.5); LYMPHOCYTES # (AUTO) 0.7 K/uL (0.8-4.8); LYMPHOCYTES % (AUTO) 13.8 % (20.0-44.0); MEAN CORPUSCULAR HGB CONC 33 g/dl (31.0-36.0); MEAN CORPUSCULAR VOLUME 88 fL (80-96); MONOCYTES # (AUTO) 0.6 K/uL (0.1-1.30); MONOCYTES % (AUTO) 11.9 % (2.0-12.0); NEUTROPHILS # (AUTO) 3.8 K/uL (1.8-8.9); NEUTROPHILS % (AUTO) 72.7 % (43.0-81.0); PLATELET COUNT (AUTO) 180 K/uL (150-450); RED BLOOD CELL COUNT(AUTO) 2.47 MIL/uL (4.5-6.0); WHITE BLOOD COUNT (AUTO) 5.2 K/uL (4.3-11.0)
[2021-06-28 06:13] LABS: CALCIUM, SERUM 8.4 mg/dL (8.5-10.1); CREATININE 5.4 mg/dL (0.6-1.3); POTASSIUM 4.5 mmol/L (3.5-5.1)
[2021-06-28 06:20] LABS: ALBUMIN 2.5 g/dL (3.4-5.0); BILIRUBIN,TOTAL 0.4 mg/dL (0.2-1.0); TOTAL PROTEIN, SERUM 6.1 g/dL (6.4-8.2)
--- NOTE | 2021-06-28 06:35 | NUR ---
MS/TELE/RN PATIENT APPEARS SLEEPING, APPEARS COMFORTABLE, BREATHING EVEN AND UNLABORED, NO SIGNS OF DISTRESS NOTED, CALL LIGHT IN REACH, ALL NEEDS ATTENDED AT THIS TIME, WILL CONTINUE TO MONITOR.
--- NOTE | 2021-06-28 07:20 | NUR ---
RN OPENING NOTES Patient in bed alert oriented x 4. No acute distress noted, breathing unlabored. Dialysis access intact with dressing clean dry and intact, no redness or bleeding noted. Head of bed elevated. Safety measures in place. Call light within reach. Will continue to monitor accordingly.
[2021-06-28 08:00] VITALS: BP 100/51
[2021-06-28] MEDS: BACLOFEN (10 MG) 10 MG TABLET PO SCH ×3 (08:55→17:02)
[2021-06-28] MEDS: SEVELAMER CARBONATE 800 MG TABLET PO SCH ×3 (08:55→17:02)
[2021-06-28] MEDS: HALOPERIDOL 1 MG TABLET PO SCH ×3 (08:56→17:02)
[2021-06-28] MEDS: NYSTATIN (PYXIS) 500,000 UNIT/5 ML ORAL.SUSP PO SCH ×3 (08:56→17:02)
[2021-06-28] MEDS: MIDODRINE HCL (5MG) 5 MG TABLET PO SCH ×3 (08:57→20:44)
[2021-06-28] MEDS: NEPRO VAN 237 ML CAN PO SCH (08:58)
--- NOTE | 2021-06-28 11:05 | NUR ---
MS RN NOTES Procalcitonin 4.42 resulted critical , notified dr herminia monroy, no new order made at this time
[2021-06-28] MEDS: ALBUMIN 25% 25 GM in PREMIX 1 EA IV PRN (11:52)
--- NOTE | 2021-06-28 13:01 | NUR ---
MS RN NOTES PATIENT ON GOING DIALYSIS AT THIS TIME , CEFEPIME IV ANTIBIOTIC NOT GIVEN YET , WILL ADMINISTER POST DIALYSIS
--- NOTE | 2021-06-28 14:19 | NUR ---
RN NOTES DIALYSIS DONE. PATIENT IN STABLE CONDITION, VITAL SIGNS STABLE. NO FLUID TAKEN OUT PER DIALYSIS NURSE.
[2021-06-28] MEDS: CEFEPIME 2 GM in IV D5W 100 ML IV SCH (14:21)
[2021-06-28 16:00] VITALS: BP 102/54
[2021-06-28] MEDS: ATORVASTATIN 40 MG TABLET PO SCH (17:02)
--- NOTE | 2021-06-28 19:00 | NUR ---
RN CLOSING NOTES Patient in bed alert oriented x 4. No acute distress noted, breathing unlabored. Dialysis access intact with dressing clean dry and intact, no redness or bleeding noted. Head of bed elevated. Needs attended and anticipated. Safety measures in place. Call light within reach. Will endorse to night nurse for continuity of care.
--- NOTE | 2021-06-28 19:24 | NUR ---
RN OPENING NOTES Patient in bed alert oriented x 3- 4. pt on 3l via nasal cannula.No acute distress noted, breathing unlabored. Dialysis access intact with dressing clean dry and intact, no redness or bleeding noted.pt s/p dialysis today no output reported unable to finish dialysis .Head of bed elevated. Needs attended and anticipated. Safety measures in place. Call light within reach. family at bedside. will continue to monitor.
[2021-06-28 20:00] VITALS: BP 104/58
[2021-06-28 20:47] VITALS: BP 112/61
[2021-06-29] MEDS: ACETAMINOPHEN 325 MG TABLET PO PRN ×2 (00:17→11:00)
[2021-06-29] MEDS: LORAZEPAM INJ 2 MG/ML VIAL IM PRN (02:32)
--- NOTE | 2021-06-29 02:39 | NUR ---
RN MS NOTES PT SCREAMING BANGING CALL LIGHT INTO THE TABLE. ALL NEEDS WERE ATTENDED TO DESPITE THAT CONTINUED. PRN ATIVAN WAS GIVEN TOLERATED WELL. WILL CONTINUE TO MONITOR.
[2021-06-29] MEDS: IPRATROPIUM NEB FS 0.5 MG/2.5 ML AMPUL.NEB NEB SCH ×6 (03:43→23:27)
--- NOTE | 2021-06-29 05:56 | NUR ---
MS RN NOTES TRIED TO COLLECT PT SPUTUM PER PT " I DONT HAVE ANY RIGHT NOW" PT WENT BACK TO SLEEP AT THIS TIME WILL TRY AGAIN IN A BIT IF UNABLE TO COLLECT WILL ENDORSE TO DAY SHIFT NURSE.
[2021-06-29 06:45] LABS: BASOPHILS % (AUTO) 0.7 % (0.0-2.0); EOSINOPHILS % (AUTO) 1.8 % (0.0-6.0); HEMATOCRIT 21 % (39-51); HEMOGLOBIN 7.1 g/dL (13.5-17.5); LYMPHOCYTES # (AUTO) 0.9 K/uL (0.8-4.8); LYMPHOCYTES % (AUTO) 18.7 % (20.0-44.0); MEAN CORPUSCULAR HGB CONC 33 g/dl (31.0-36.0); MEAN CORPUSCULAR VOLUME 88 fL (80-96); MONOCYTES # (AUTO) 0.6 K/uL (0.1-1.30); MONOCYTES % (AUTO) 11.3 % (2.0-12.0); NEUTROPHILS # (AUTO) 3.4 K/uL (1.8-8.9); NEUTROPHILS % (AUTO) 67.5 % (43.0-81.0); PLATELET COUNT (AUTO) 192 K/uL (150-450); RED BLOOD CELL COUNT(AUTO) 2.43 MIL/uL (4.5-6.0)
--- NOTE | 2021-06-29 06:50 | NUR ---
RN CLOSING NOTES Patient in bed asleep easily woken up.No acute distress noted, breathing unlabored. Dialysis access intact with dressing clean dry and intact, no redness or bleeding noted.pt s/p dialysis yesterday no output reported unable to finish dialysis pt is scheduled for dialysis again today.Head of bed elevated. Needs attended and anticipated. Safety measures in place. Call light within reach. cup left at bedside pt instructed on how to collect sputum and to let nurse know once collected. will endorse care to days shift nurse.
[2021-06-29 07:25] LABS: ALBUMIN 2.7 g/dL (3.4-5.0); BILIRUBIN,TOTAL 0.5 mg/dL (0.2-1.0); CALCIUM, SERUM 8.6 mg/dL (8.5-10.1); CREATININE 4.5 mg/dL (0.6-1.3); MAGNESIUM 2.5 mg/dL (1.8-2.4); PHOSPHORUS 3.7 mg/dL (2.5-4.9); POTASSIUM 4.4 mmol/L (3.5-5.1); TOTAL PROTEIN, SERUM 6.3 g/dL (6.4-8.2)
--- NOTE | 2021-06-29 07:25 | NUR ---
MS RN OPENING NOTES PATIENT RESTING IN BED AND A/O X2, YORUBA SPEAKING. CURRENTLY ON RA WITH BREATHING EVEN AND NONLABORED. NO COMPLAINT OF PAIN VERBALIZED AT THIS TIME. RIGHT FOREARM G#20 AND AT LEFT GROIN G#20 MIDLINE SALINE LOCKED, PATENT AND INTACT. RIGHT FEMORAL HD PERMACATH CLEAN AND DRY WITH DRESSING. SAFETY MEASURES IN PLACE. CALL LIGHT WITHIN REACH. BED LOWEST AND LOCKED POSITION, SIDE RAILS UP X2. WILL CONTINUE TO MONITOR PATIENT
[2021-06-29 08:00] VITALS: BP 106/50
[2021-06-29] MEDS: HALOPERIDOL 1 MG TABLET PO SCH ×3 (08:34→17:14)
[2021-06-29] MEDS: SEVELAMER CARBONATE 800 MG TABLET PO SCH ×3 (08:34→17:14)
[2021-06-29] MEDS: NYSTATIN (PYXIS) 500,000 UNIT/5 ML ORAL.SUSP PO SCH ×3 (08:34→17:14)
[2021-06-29] MEDS: BACLOFEN (10 MG) 10 MG TABLET PO SCH ×3 (08:34→17:14)
[2021-06-29] MEDS: MIDODRINE HCL (5MG) 5 MG TABLET PO SCH ×3 (08:35→20:46)
[2021-06-29] MEDS: NEPRO VAN 237 ML CAN PO SCH (08:35)
[2021-06-29] MEDS ORDERED: POLYETHYLENE GLYCOL 3350 17 GM POWD.PACK PO PRN (10:30)
--- NOTE | 2021-06-29 12:49 | NUR ---
RN NOTES PATIENT IS BEING STARTED ON HD
[2021-06-29 16:00] VITALS: BP 101/61
--- NOTE | 2021-06-29 16:30 | NUR ---
RN NOTES HD COMPLETE. PATIENT TOLERATED WELL WITH NO COMPLICATIONS. 1.1L OUTPUT. VSS.
[2021-06-29] MEDS: CEFEPIME 2 GM in IV D5W 100 ML IV SCH (16:58)
[2021-06-29] MEDS: ATORVASTATIN 40 MG TABLET PO SCH (17:14)
[2021-06-29] MEDS ORDERED: oxyCODONE IR immediate release 5 MG PO PRN (17:30)
--- NOTE | 2021-06-29 19:30 | NUR ---
RN CLOSING NOTES ENDORSED TO THE REGISTERED HEALTH NURSE NURSE FOR ALBERTO
[2021-06-29 20:09] VITALS: BP 95/57
[2021-06-30] MEDS: IPRATROPIUM NEB FS 0.5 MG/2.5 ML AMPUL.NEB NEB SCH ×4 (02:58→16:03)
--- NOTE | 2021-06-30 05:17 | NUR ---
RN CLOSING NOTES: alert orientated X3 will use the call light when in need of assist @ times he will not use the call light and yell out loudly or bang the call light against the table repeatedly until a nurse ebters the room He will only speak SYRIAN and at times his speech is difficult to understand. When offered fluid he will drink aspiration precautions always incontinent of stool soft and formed Needs assist in bed repositioning not cooperative about staying on his sides when nurses reposition him and support him with pillows laurie feet warm to touch and PPR blanching present left leg bent at the knee and maintaining that position thru the night HD cath right Groin site CDI MIDLINE site left groin CDI Medicated with OXcodone tablet 1 5mg as ordered PRN for pain effective, given prior changing his position at the beginning of the SHIFT
[2021-06-30 06:47] LABS: BASOPHILS % (AUTO) 0.5 % (0.0-2.0); EOSINOPHILS % (AUTO) 0.7 % (0.0-6.0); HEMATOCRIT 24 % (39-51); HEMOGLOBIN 7.8 g/dL (13.5-17.5); LYMPHOCYTES # (AUTO) 0.6 K/uL (0.8-4.8); LYMPHOCYTES % (AUTO) 10.8 % (20.0-44.0); MEAN CORPUSCULAR HGB CONC 33 g/dl (31.0-36.0); MEAN CORPUSCULAR VOLUME 88 fL (80-96); MONOCYTES # (AUTO) 0.6 K/uL (0.1-1.30); NEUTROPHILS # (AUTO) 4.5 K/uL (1.8-8.9); PLATELET COUNT (AUTO) 225 K/uL (150-450); RED BLOOD CELL COUNT(AUTO) 2.69 MIL/uL (4.5-6.0); WHITE BLOOD COUNT (AUTO) 5.8 K/uL (4.3-11.0)
[2021-06-30 06:58] LABS: ALBUMIN 2.6 g/dL (3.4-5.0); BILIRUBIN,TOTAL 0.4 mg/dL (0.2-1.0); CALCIUM, SERUM 8.8 mg/dL (8.5-10.1); CREATININE 4.2 mg/dL (0.6-1.3); MAGNESIUM 2.3 mg/dL (1.8-2.4); PHOSPHORUS 3.1 mg/dL (2.5-4.9); POTASSIUM 3.8 mmol/L (3.5-5.1); TOTAL PROTEIN, SERUM 6.5 g/dL (6.4-8.2)
--- NOTE | 2021-06-30 07:20 | NUR ---
MS RN OPENING NOTES RECEIVED PATIENT IN BED AND A/O X2, GUINEAN SPEAKING. ON RA WITH BREATHING EVEN AND NONLABORED. NO PAIN VERBALIZED AT THIS TIME. RIGHT FOREARM G#20 AND AT LEFT GROIN G#20 MIDLINE SALINE LOCKED, PATENT AND INTACT. RIGHT FEMORAL HD PERMACATH CLEAN AND DRY WITH DRESSING. SAFETY MEASURES IN PLACE. CALL LIGHT WITHIN REACH. BED LOWEST AND LOCKED POSITION, SIDE RAILS UP X2. WILL CONTINUE TO MONITOR PATIENT
[2021-06-30 08:00] VITALS: BP 100/54
--- NOTE | 2021-06-30 08:20 | NUR ---
PATIENT REFUSED TX RN NOTIFIED. PATIENT AWAKE. Addendum: 06/30/21 at 0821 by АЛЕКСАНДР CALI RT Amended: Links added.
[2021-06-30] MEDS: MIDODRINE HCL (5MG) 5 MG TABLET PO SCH ×2 (09:27→13:19)
[2021-06-30] MEDS: HALOPERIDOL 1 MG TABLET PO SCH ×2 (09:28→13:19)
[2021-06-30] MEDS: SEVELAMER CARBONATE 800 MG TABLET PO SCH ×2 (09:28→13:19)
[2021-06-30] MEDS: NYSTATIN (PYXIS) 500,000 UNIT/5 ML ORAL.SUSP PO SCH ×2 (09:28→13:19)
[2021-06-30] MEDS: BACLOFEN (10 MG) 10 MG TABLET PO SCH ×2 (09:28→13:19)
[2021-06-30] MEDS: NEPRO VAN 237 ML CAN PO SCH (09:30)
[2021-06-30] MEDS: ACETAMINOPHEN 325 MG TABLET PO PRN ×2 (09:41→17:08)
--- NOTE | 2021-06-30 11:24 | NUR ---
PATIENT WERE FOUND WITHOUT O2 ON. NC WERE FOUND ON THE BED SIDE. PATIENT WERE EVALAUTED AND SAT BTW 84-89%. PATIENT WERE PLACED BACK ON O2 LPM. Addendum: 06/30/21 at 1126 by АЛЕКСАНДР CALI RT Amended: Links added.
[2021-06-30 13:19] VITALS: BP 105/62
[2021-06-30] MEDS: CEFEPIME 2 GM in IV D5W 100 ML IV SCH (13:22)
--- NOTE | 2021-06-30 16:38 | NUR ---
RN NOTES PATIENT REFUSING TO HAVE PICTURES TAKEN OF SKIN. DOES NOT WANT TO BE REPOSITIONED AT THIS TIME. STATES, "IT HURTS TOO MUCH". SKIN IN SIMILAR CONDITION ADMISSION.
--- NOTE | 2021-06-30 17:50 | NUR ---
HAND SPRING FORMER NOTES PATIENT MEDICALLY STABLE FOR DISCHARGE. REPORT GIVEN TO POLITICAL DIRECTOR AT [facility]. DISCHARGE INSTRUCTIONS PROVIDED TO PATIENT AND FAMILY AT BEDSIDE. PATIENT ABLE TO VERBALIZE UNDERSTANDING. ACCESS LINE AND PERMA CATH KEPT IN PLACE PER MD FOR CONTINUATION OF MEDICATIONS AND HD. BELONGINGS ACCOUNTED FOR. PATIENT PICKED UP BY AMBULANCE AND TRANSFERRED VIA GURNEY ACCOMPANIED BY TWO EMT.
== END 2021-06-30 17:55 | DRG 340 ==
LOC: ER 10:28 → TELE 18:54 → ICU 06-04 12:39 → TELE1 06-05 22:26 → TELE-TD 06-10 12:35 → ICU 06-12 18:05 → MED 06-13 18:43
PROVIDERS: ADMIT Student in an Organized Health Care Education/Training Program; ATTEND Nurse Practitioner Family
PROC: 5A1D70Z Performance of Urinary Filtration, Intermittent, Less than 6 Hours Per Day (ICD-10-PCS; principal; 2021-06-01)
PROC: 05H933Z Insertion of Infusion Device into Right Brachial Vein, Percutaneous Approach (ICD-10-PCS; 2021-06-01)
PROC: 02HV33Z Insertion of Infusion Device into Superior Vena Cava, Percutaneous Approach (ICD-10-PCS; 2021-06-12)
PROC: B548ZZA Ultrasonography of Superior Vena Cava, Guidance (ICD-10-PCS; 2021-06-12)
PROC: 06HM33Z Insertion of Infusion Device into Right Femoral Vein, Percutaneous Approach (ICD-10-PCS; 2021-06-23)
PROC: B54BZZA Ultrasonography of Right Lower Extremity Veins, Guidance (ICD-10-PCS; 2021-06-23)
PROC: 06HN33Z Insertion of Infusion Device into Left Femoral Vein, Percutaneous Approach (ICD-10-PCS; 2021-06-27)
PROC: 0JHL3XZ Insertion of Tunneled Vascular Access Device into Right Upper Leg Subcutaneous Tissue and Fascia, Percutaneous Approach (ICD-10-PCS; 2021-06-27)
PROC: 06HM33Z Insertion of Infusion Device into Right Femoral Vein, Percutaneous Approach (ICD-10-PCS; 2021-06-27)
PROC: B54BZZA Ultrasonography of Right Lower Extremity Veins, Guidance (ICD-10-PCS; 2021-06-27)
PROC: B51 Imaging, Veins, Fluoroscopy (ICD-10-PCS; 2021-06-27)
PROC: B518YZZ Fluoroscopy of Superior Vena Cava using Other Contrast (ICD-10-PCS; 2021-06-27)
DX: M84.452A Pathological fracture, left femur, initial encounter for fracture (principal); R57.9 Shock, unspecified; D69.6 Thrombocytopenia, unspecified; E44.1 Mild protein-calorie malnutrition; R78.81 Bacteremia; E87.2 Acidosis; I12.0 Hypertensive chronic kidney disease with stage 5 chronic kidney disease or end stage renal disease; E87.1 Hypo-osmolality and hyponatremia; D63.1 Anemia in chronic kidney disease; N18.6 End stage renal disease; E88.09 Other disorders of plasma-protein metabolism, not elsewhere classified; E87.5 Hyperkalemia; Z99.2 Dependence on renal dialysis; Z68.1 Body mass index [BMI] 19.9 or less, adult; Z20.822 Contact with and (suspected) exposure to COVID-19; Z79.899 Other long term (current) drug therapy; E78.5 Hyperlipidemia, unspecified; Z74.01 Bed confinement status; Z91.19 Patient's noncompliance with other medical treatment and regimen; M85.80 Other specified disorders of bone density and structure, unspecified site; D50.9 Iron deficiency anemia, unspecified; B95.8 Unspecified staphylococcus as the cause of diseases classified elsewhere; R13.10 Dysphagia, unspecified; D72.819 Decreased white blood cell count, unspecified; H70.90 Unspecified mastoiditis, unspecified ear; I87.1 Compression of vein; J98.11 Atelectasis; J98.4 Other disorders of lung; R59.0 Localized enlarged lymph nodes; N25.0 Renal osteodystrophy; L72.3 Sebaceous cyst; S70.12XA Contusion of left thigh, initial encounter; X58.XXXA Exposure to other specified factors, initial encounter; Y92.9 Unspecified place or not applicable; F29 Unspecified psychosis not due to a substance or known physiological condition
CPT/HCPCS: 36410; 36415; 36569; 36600; 70450-TC; 70490-TC; 71045-TC; 71260-TC; 73552; 73700-TC; 73720-TC; 74018; 76882; 78306-TC; 80048-TC; 80053-TC; 80076-TC; 80202-TC; 82140-TC; 82378; 82607-TC; 82728-TC; 82784; 82803-TC; 82962-TC; 83540-TC; 83605-TC; 83735-TC; 83970; 84100-TC; 84132-TC; 84153-TC; 84154-TC; 84155; 84165; 84295-TC; 84443-TC; 84484-TC; 85025-TC; 85610-TC; 85730-TC; 86225; 86235; 86334; 86431-TC; 86706; 86803; 87040-TC; 87081-TC; 87340; 90935-TC; 92526; 92611-TC; 94799-TC; 97110-TC; 97112-TC; 97530-TC; A4216; A6253; A9503; A9575; C1750; C1757; C1769; C1894; C9803; G0378; J0610; J0690; J0692; J1170; J1644; J1815; J2060; J2270; J2405; J2543; J2704; J2765; J3010; J3370; J3490; J7030; J7040; J7050; J7060; P9047; Q9966; Q9967

== ENCOUNTER 2022-01-26 13:09 | Inpatient (IN) | payer OTHER ==
[~2022-01-26] VITALS: Ht 129.5 cm; Wt 54.9 kg
--- NOTE | 2022-01-26 13:30 | NUR ---
BIB PRIVATE AMBULANCE FROM SNF; PER REPORT, PT MISSED 2 DIALYSIS TREATMENTS LAST DIALYZED 01/21/2022.
--- NOTE | 2022-01-26 14:00 | NUR ---
CODING MANAGER AT BEDSIDE
[2022-01-26 14:11] LABS: BASOPHILS % (AUTO) 0.7 % (0.0-2.0); EOSINOPHILS % (AUTO) 4.9 % (0.0-6.0); HEMATOCRIT 38 % (39-51); HEMOGLOBIN 11.8 g/dL (13.5-17.5); LYMPHOCYTES # (AUTO) 0.8 K/uL (0.8-4.8); LYMPHOCYTES % (AUTO) 23.9 % (20.0-44.0); MEAN CORPUSCULAR HGB CONC 31 g/dl (31.0-36.0); MEAN CORPUSCULAR VOLUME 93 fL (80-96); MONOCYTES # (AUTO) 0.3 K/uL (0.1-1.30); MONOCYTES % (AUTO) 8.1 % (2.0-12.0); NEUTROPHILS # (AUTO) 2.2 K/uL (1.8-8.9); NEUTROPHILS % (AUTO) 62.4 % (43.0-81.0); PLATELET COUNT (AUTO) 115 K/uL (150-450); RED BLOOD CELL COUNT(AUTO) 4.04 MIL/uL (4.5-6.0); WHITE BLOOD COUNT (AUTO) 3.5 K/uL (4.3-11.0)
[2022-01-26 14:26] LABS: BILIRUBIN,TOTAL 0.4 mg/dL (0.2-1.0); CARBON DIOXIDE 25 mmol/L (21-32); CHLORIDE 102 mmol/L (98-107); GLUCOSE 87 mg/dL (74-106); POTASSIUM 5.8 mmol/L (3.5-5.1); SODIUM SERUM 136 mmol/L (136-145)
[2022-01-26 14:27] LABS: ALANINE AMINOTRANSFERASE 16 U/L (12-78); ALBUMIN 3.4 g/dL (3.4-5.0); ALKALINE PHOSPHATASE 411 U/L (46-116); ASPARTATE AMINOTRANSFERASE 14 U/L (15-37); BILIRUBIN,DIRECT 0.2 mg/dL (0.0-0.2); TOTAL PROTEIN, SERUM 6.7 g/dL (6.4-8.2)
[2022-01-26 14:28] LABS: CREATININE 8.7 mg/dL (0.6-1.3)
[2022-01-26 14:30] LABS: UREA NITROGEN, BLOOD 93 mg/dL (7-18)
--- NOTE | 2022-01-26 14:31 | NUR ---
SWAB FOR COVID19 SENT TO LAB
--- NOTE | 2022-01-26 14:56 | NUR ---
CALLED DR. NICHOLSON [phone] [facility] SPEAKING TO DR. CROCKETT.
[2022-01-26] MEDS ORDERED: SODIUM POLYSTYRENE SULFONATE 15 G/60 ML BOTTLE PO ONE (15:00)
[2022-01-26] MEDS ORDERED: Calcium Gluconate 1GM/10ML 4.65 MEQ in IV NS 0.9% 100 ML IV ONE (15:00)
[2022-01-26] MEDS ORDERED: SODIUM POLYSTYRENE SULFONATE 15 G/60 ML BOTTLE ONE (15:13)
--- NOTE | 2022-01-26 15:16 | NUR ---
called for midline nurse. ETA 1hr from now per nursing sup.
--- NOTE | 2022-01-26 15:26 | NUR ---
DR LORENZO SPEAKING W/ DR COOPER
--- NOTE | 2022-01-26 15:44 | NUR ---
MIDLINE NURSE AT BEDSIDE
[2022-01-26] MEDS ORDERED: HYDROCODONE/APAP 10/325MG TABLET PO PRN (16:30)
[2022-01-26] MEDS ORDERED: ACETAMINOPHEN 325 MG TABLET PO PRN (16:30)
[2022-01-26] MEDS ORDERED: MAGNESIUM HYDROXIDE 30 ML UDC PO PRN (16:30)
[2022-01-26] MEDS ORDERED: ONDANSETRON HCL/PF 4 MG/2 ML VIAL IVP PRN (16:30)
[2022-01-26] MEDS ORDERED: MIDODRINE HCL (5MG) 5 MG TABLET PO PRN ×3 (16:30→19:30)
[2022-01-26] MEDS ORDERED: METOPROLOL TARTRATE 25 MG TABLET PO PRN (16:30)
[2022-01-26] MEDS ORDERED: Z GUARD REMEDY 4 OZ OINT TP PRN (16:30)
[2022-01-26] MEDS ORDERED: TEMAZEPAM 15 MG CAPSULE PO PRN (16:30)
[2022-01-26] MEDS ORDERED: MAG HYDROX/AL HYDROX/SIMETH 30 ML UDC PO PRN (16:30)
[2022-01-26] MEDS: ATORVASTATIN 40 MG TABLET PO SCH (18:00)
--- NOTE | 2022-01-26 18:00 | NUR ---
ROOM 310-1
--- NOTE | 2022-01-26 18:40 | NUR ---
PT REPORT GIVEN TO STACEY SOFIA
--- NOTE | 2022-01-26 19:06 | NUR ---
PT TAKEN TO ROOM 310-1 VIA FLORINA ACLS PROTOCOL. WARM HANDOFF GIVEN TO RN ASSIGNED.
[2022-01-26] MEDS ORDERED: ATORVASTATIN 40 MG TABLET ONE (19:07)
--- NOTE | 2022-01-26 19:40 | NUR ---
STERILIZER OPERATOR NOTES RECEIVED PATIENT LYING AWAKE IN BED. A/O X4. ATTACHED TO 02 6LPM VIA NASAL CANNULA. SOB NOTED. SATURATION 97%. LEFT UPPER LUNGS RALES UPON AUSCULTATION. RIGHT LUNG DIMINISHED SOUNDS. WITH LUNG DEFORMITIES DUE TO PRIOR SURGERY. IV ACCESS AT RIGHT UPPER ARM MIDLINE #18, PATENT AND INTACT. FLUSHING WELL. AV FISTULA NOTED AT LEFT FOREARM. PERMCATH AT RIGHT FEMORAL ACCESS. MISSED HD X2. ORIENTED TO ROOM SET-UP. SAFETY MEASURES INITIATED. CALL LIGHT WITHIN REACH. WILL CONTINUE TO MONITOR. SEVELAMER RETURNED TO OMNICELL- CHECKED AND VERIFIED, ALREADY GIVEN. Addendum: 01/26/22 at 2141 by KIMMY CRUZ RN ON TELEMETRY MONITORING SHOWS SINUS RHYTHM HR [id number] Addendum: 01/26/22 at 2142 by KIMMY CRUZ RN PATIENT CONFIRMED ALREADY TAKEN ATORVASTATIN VERBALIZED
[2022-01-26 20:00] VITALS: BP 128/81
[2022-01-26] MEDS: SEVELAMER CARBONATE 800 MG TABLET PO SCH ×2 (21:02→21:48)
[2022-01-26 21:26] VITALS: BP 128/81
[2022-01-27] VITALS (7 sets, daily range): BP systolic 108–130; BP diastolic 73–82
--- NOTE | 2022-01-27 04:52 | NUR ---
RN NOTES - PATIENT REFUSED SKIN ASSESSMENT. EXPLAINED THE NEED FOR ASSESSMENT X3. REFUSED LINEN CHANGE. WILL ENDORSE TO NEXT RN FOR ALBERTO.
[2022-01-27] MEDS ORDERED: MIDODRINE HCL (5MG) 5 MG TABLET PO PRN (06:30)
[2022-01-27 06:37] LABS: BASOPHILS % (AUTO) 0.5 % (0.0-2.0); EOSINOPHILS % (AUTO) 3.9 % (0.0-6.0); HEMATOCRIT 38 % (39-51); HEMOGLOBIN 11.7 g/dL (13.5-17.5); LYMPHOCYTES # (AUTO) 0.8 K/uL (0.8-4.8); LYMPHOCYTES % (AUTO) 19.9 % (20.0-44.0); MEAN CORPUSCULAR HGB CONC 31 g/dl (31.0-36.0); MEAN CORPUSCULAR VOLUME 93 fL (80-96); MONOCYTES # (AUTO) 0.3 K/uL (0.1-1.30); NEUTROPHILS # (AUTO) 2.7 K/uL (1.8-8.9); NEUTROPHILS % (AUTO) 68.7 % (43.0-81.0); PLATELET COUNT (AUTO) 108 K/uL (150-450); RED BLOOD CELL COUNT(AUTO) 4.06 MIL/uL (4.5-6.0); WHITE BLOOD COUNT (AUTO) 3.9 K/uL (4.3-11.0)
--- NOTE | 2022-01-27 06:54 | NUR ---
GASKET FORMER CLOSING NOTES PATIENT LYING ASLEEP IN BED. A/O X4. ATTACHED TO 02 6LPM VIA NASAL CANNULA. SOB NOTED. SATURATION 97%. LEFT UPPER LUNGS RALES UPON AUSCULTATION. RIGHT LUNG DIMINISHED SOUNDS. WITH LUNG DEFORMITIES. IV ACCESS AT RIGHT UPPER ARM MIDLINE #18, PATENT AND INTACT. FLUSHING WELL. AV FISTULA NOTED AT LEFT FOREARM. PERMCATH AT RIGHT FEMORAL ACCESS. MISSED HD X2. DUE MEDS GIVEN. SAFETY MEASURES MAINTAINED. WILL ENDORSE TO NEXT SHIFT RN FOR ALBERTO. Addendum: 01/27/22 at 0656 by KIMMY CRUZ RN TELE MONITORING READS SINUS RHYTHM HR [id number]
[2022-01-27 07:00] LABS: CALCIUM, SERUM 9.2 mg/dL (8.5-10.1); MAGNESIUM 2.8 mg/dL (1.8-2.4); PHOSPHORUS 6.4 mg/dL (2.5-4.9); POTASSIUM 5.8 mmol/L (3.5-5.1)
[2022-01-27] MEDS ORDERED: CINA30TA2 PO (08:36)
[2022-01-27] MEDS ORDERED: ONDA4TAB5 PO (08:36)
[2022-01-27] MEDS ORDERED: BUME1TAB8 PO (08:36)
[2022-01-27] MEDS ORDERED: FAMO20TA8 PO (08:36)
[2022-01-27] MEDS ORDERED: ACET-868 PO (08:36)
[2022-01-27] MEDS ORDERED: EPOE40002 SQ (08:36)
[2022-01-27] MEDS ORDERED: HEPA50007 SQ (08:36)
[2022-01-27] MEDS ORDERED: ALBU1.257 IH (08:36)
[2022-01-27] MEDS: PANTOPRAZOLE 40 MG TABLET.DR PO SCH (09:40)
[2022-01-27] MEDS: SEVELAMER CARBONATE 800 MG TABLET PO SCH ×3 (09:40→18:37)
[2022-01-27] MEDS: HYDROCODONE/APAP 5/325MG TABLET PO PRN (09:40)
[2022-01-27] MEDS ORDERED: SODIUM POLYSTYRENE SULFONATE 15 G/60 ML BOTTLE PO ONE (11:00)
[2022-01-27] MEDS: ATORVASTATIN 40 MG TABLET PO SCH (18:37)
--- NOTE | 2022-01-27 19:58 | NUR ---
DISTRICT SCOUT EXECUTIVE OPENING NOTES RECEIVED PATIENT ASLEEP IN BED, EASY TO AROUSE. A/O X3. BREATHING EVEN AND NON-LABORED, ON O2 AT 3LPM VIA NASAL CANULA. NOT IN APPARENT DISTRESS. NO C/O PAIN OR DISCOMFORT. ON TELE MONITOR READING SINUS RHYTHM AT 87 BPM. HAS RIGHT UPPER ARM MIDLINE AND SALINE LOCKED. NO S/S OF INFILTRATION NOTED. HAS LEFT LOWER ARM AV FISTULA. SAFETY PRECAUTIONS IN PLACE: BED LOW AND LOCKED, SIDE RAILS UP X3, CALL LIGHT WITHIN REACH. WILL CONTINUE POC. Addendum: 01/27/22 at 2211 by July FRANK IBARRA HAS RIGHT FEMORAL PERMA CATH. DRESSING C/D/I.
[2022-01-27] MEDS ORDERED: FAMOTIDINE (20 MG) 20 MG TABLET PO PRN (21:00)
[2022-01-27] MEDS ORDERED: ALBUTEROL HALF STRENGTH 1.25 MG/3 ML VIAL.NEB IH PRN (21:00)
[2022-01-27] MEDS ORDERED: ACETAMINOPHEN 325 MG TABLET PO PRN (21:00)
[2022-01-27] MEDS ORDERED: ONDANSETRON 4 MG TAB.RAPDIS PO PRN (21:30)
[2022-01-27] MEDS: HEPARIN SODIUM, PORCINE 5000 UNITS/1 ML VIAL SQ SCH (22:00)
--- NOTE | 2022-01-27 22:09 | NUR ---
SUPERVISOR DIE CASTING NOTES PATIENT REFUSED HEPARIN TO BE INJECTED IN HIS ABDOMEN, HE SAID IT IS TOO PAINFUL. EXPLAINED RISKS AND BENEFITS, STILL REFUSED.
[2022-01-28] VITALS: BP 108/60
[2022-01-28 04:00] VITALS: BP 112/69
--- NOTE | 2022-01-28 07:04 | NUR ---
RESPIRATORY MANAGER CLOSING NOTES PATIENT LAYING IN BED ASLEEP, EASY TO AROUSE. STABLE THROUGHOUT THE SHIFT. NO C/O PAIN, N/V. AFEBRILE. ON TELE MONITOR READING SINUS RHYTHM AT 95 BPM. RIGHT UPPER ARM MIDLINE #18G INTACT, PATENT AND FLUSHING. REFUSED SKIN ASSESSMENT AND PERINEAL CARE. REFUSED PATIENT EDUCATION. SAFETY PRECAUTIONS MAINTAINED. WILL ENDORSE TO NEXT SHIFT FOR ALBERTO.
[2022-01-28] MEDS: CINACALCET HCL 30 MG TABLET PO SCH (09:00)
[2022-01-28] MEDS: HEPARIN SODIUM, PORCINE 5000 UNITS/1 ML VIAL SQ SCH ×2 (09:00→21:32)
[2022-01-28 09:32] LABS: CALCIUM, SERUM 9.2 mg/dL (8.5-10.1); CREATININE 7.3 mg/dL (0.6-1.3); POTASSIUM 4.7 mmol/L (3.5-5.1)
[2022-01-28] MEDS: SEVELAMER CARBONATE 800 MG TABLET PO SCH ×3 (10:38→17:17)
[2022-01-28] MEDS: HYDROCODONE/APAP 5/325MG TABLET PO PRN (10:38)
[2022-01-28] MEDS: PANTOPRAZOLE 40 MG TABLET.DR PO SCH (10:44)
[2022-01-28] MEDS ORDERED: SODIUM POLYSTYRENE SULFONATE 15 G/60 ML BOTTLE PO ONE (11:00)
[2022-01-28] MEDS: ATORVASTATIN 40 MG TABLET PO SCH (17:17)
[2022-01-28] MEDS: CEFEPIME 1 GM in IV D5W 50 ML IV SCH (17:17)
--- NOTE | 2022-01-28 19:35 | NUR ---
PUPPET DEVELOPER OPENING NOTE RECEIVED PATIENT AWAKE IN BED. PT A/O X3, ABLE TO VERBALIZE NEEDS. BREATHING EVEN AND NON-LABORED, ON O2 AT 3 LPM VIA NASAL CANULA. NO RESPIRATORY DISTRESS, NO C/O PAIN OR DISCOMFORT AT THIS TIME. ON TELE MONITOR READING SINUS RHYTHM. HAS RIGHT UPPER ARM MIDLINE, SALINE LOCKED. NO S/S OF INFILTRATION NOTED. PT HAS LEFT LOWER ARM AV FISTULA, AND RIGHT FEMORAL PERMA CATH. SAFETY PRECAUTIONS IN PLACE: BED LOWEST POSITION, AND LOCKED, SIDE RAILS UP X 3, CALL LIGHT WITHIN REACH. WILL CONTINUE TO MONITOR PT.
[2022-01-28 20:00] VITALS: BP 99/61
[2022-01-29] VITALS: BP 102/65
[2022-01-29 04:00] VITALS: BP 108/64
[2022-01-29 06:42] LABS: BASOPHILS % (AUTO) 0.3 % (0.0-2.0); EOSINOPHILS % (AUTO) 4.2 % (0.0-6.0); HEMATOCRIT 36 % (39-51); HEMOGLOBIN 11.4 g/dL (13.5-17.5); LYMPHOCYTES % (AUTO) 28.2 % (20.0-44.0); MEAN CORPUSCULAR HGB CONC 32 g/dl (31.0-36.0); MEAN CORPUSCULAR VOLUME 93 fL (80-96); MONOCYTES # (AUTO) 0.4 K/uL (0.1-1.30); NEUTROPHILS # (AUTO) 2.1 K/uL (1.8-8.9); NEUTROPHILS % (AUTO) 56.3 % (43.0-81.0); PLATELET COUNT (AUTO) 107 K/uL (150-450); WHITE BLOOD COUNT (AUTO) 3.7 K/uL (4.3-11.0)
[2022-01-29 06:46] LABS: CALCIUM, SERUM 9.3 mg/dL (8.5-10.1); CREATININE 4.9 mg/dL (0.6-1.3); POTASSIUM 4.2 mmol/L (3.5-5.1)
--- NOTE | 2022-01-29 07:05 | NUR ---
LIGHT CLEANER CLOSING NOTE LEFT PATIENT LAYING IN BED ASLEEP, EASY TO AROUSE. NO C/O PAIN, N/V. ON TELE MONITOR READING SINUS RHYTHM. RIGHT UPPER ARM MIDLINE #18G INTACT, PATENT AND FLUSHING. REFUSED SKIN ASSESSMENT AND PERINEAL CARE. REFUSED TOP BE TOUCHED. SAFETY PRECAUTIONS MAINTAINED. WILL ENDORSE TO NEXT SHIFT NURSE FOR ALBERTO.
[2022-01-29 08:00] VITALS: BP 130/64
[2022-01-29] MEDS: SEVELAMER CARBONATE 800 MG TABLET PO SCH ×3 (09:15→17:33)
[2022-01-29] MEDS: HEPARIN SODIUM, PORCINE 5000 UNITS/1 ML VIAL SQ SCH ×2 (09:16→20:58)
[2022-01-29] MEDS: CINACALCET HCL 30 MG TABLET PO SCH (09:18)
[2022-01-29] MEDS ORDERED: PANTOPRAZOLE 40 MG TABLET.DR PO SCH (09:24)
[2022-01-29 12:00] VITALS: BP 130/76
[2022-01-29] MEDS: CEFEPIME 1 GM in IV D5W 50 ML IV SCH (12:25)
[2022-01-29] MEDS ORDERED: AMOX-427 PO (14:03)
[2022-01-29] MEDS ORDERED: EPOETIN ALFA (4000 UNIT) 4,000 UNIT/ML VIAL SQ SCH (15:00)
[2022-01-29] MEDS: ATORVASTATIN 40 MG TABLET PO SCH (17:33)
[2022-01-29 18:13] VITALS: BP 115/66
--- NOTE | 2022-01-29 19:50 | NUR ---
BOOT AND SHOE REPAIRMAN OPENING NOTE RECEIVED PATIENT AWAKE IN BED. PT A/O X3, ABLE TO VERBALIZE NEEDS. BREATHING EVEN AND NON-LABORED, ON O2 AT 3 LPM VIA NASAL CANULA. NO RESPIRATORY DISTRESS, NO C/O PAIN OR DISCOMFORT AT THIS TIME. ON TELE MONITOR READING SINUS RHYTHM. HAS RIGHT UPPER ARM MIDLINE, SALINE LOCKED. NO S/S OF INFILTRATION NOTED. PT HAS LEFT LOWER ARM AV FISTULA, AND RIGHT FEMORAL PERMA CATH. SAFETY PRECAUTIONS IN PLACE: BED LOWEST POSITION, AND LOCKED, SIDE RAILS UP X 3, CALL LIGHT WITHIN REACH. WILL CONTINUE TO MONITOR ACCORDINGLY.
[2022-01-29 20:41] VITALS: BP 134/72
[2022-01-30 00:16] VITALS: BP 123/60
--- NOTE | 2022-01-30 04:00 | NUR ---
TWO WAY RADIO TECHNICIAN NOTE PT IS HAVING HEMODIALYSIS. HD NURSE AT BED SIDE.
--- NOTE | 2022-01-30 06:05 | NUR ---
BURGLAR ALARM INSPECTOR NOTE HEMODIALYSIS COMPLETED. PT TOLERATED HD WELL. 2 L OF FLUID REMOVED.
[2022-01-30 06:36] LABS: CALCIUM, SERUM 8.2 mg/dL (8.5-10.1); CREATININE 5.2 mg/dL (0.6-1.3); POTASSIUM 4.2 mmol/L (3.5-5.1)
--- NOTE | 2022-01-30 06:58 | NUR ---
TESTER ELECTRONIC SCALE CLOSING NOTE LEFT PATIENT LAYING IN BED ASLEEP, EASY TO AROUSE. NO C/O PAIN, N/V. ON TELE MONITOR READING SINUS RHYTHM, HR: 79 WITH PAC. RIGHT UPPER ARM MIDLINE #18G INTACT, PATENT AND FLUSHING. REFUSED SKIN ASSESSMENT AND PERINEAL CARE. REFUSED TOP BE TOUCHED. SAFETY PRECAUTIONS MAINTAINED. WILL ENDORSE TO NEXT SHIFT NURSE FOR ALBERTO.
--- NOTE | 2022-01-30 08:00 | NUR ---
SCALER NOTE PT IS DISCHARGED HOME. ALL DISCHARGE EXIT COMPLETED. REPORT GIVEN TO NURSE OSORIO FROM [facility]. TRANSPORTATION PRESENT TO SUPERVISOR COATING PT. BELONGING LIST SIGNED. PT HAS ALL HIS BELONGINGS.
[2022-01-30 09:27] LABS: BASOPHILS % (AUTO) 0.9 % (0.0-2.0); EOSINOPHILS % (AUTO) 3.6 % (0.0-6.0); HEMATOCRIT 34 % (39-51); HEMOGLOBIN 10.9 g/dL (13.5-17.5); LYMPHOCYTES # (AUTO) 0.8 K/uL (0.8-4.8); LYMPHOCYTES % (AUTO) 25.9 % (20.0-44.0); MEAN CORPUSCULAR HGB CONC 33 g/dl (31.0-36.0); MEAN CORPUSCULAR VOLUME 91 fL (80-96); MONOCYTES # (AUTO) 0.2 K/uL (0.1-1.30); MONOCYTES % (AUTO) 7.8 % (2.0-12.0); NEUTROPHILS % (AUTO) 61.8 % (43.0-81.0); PLATELET COUNT (AUTO) 106 K/uL (150-450); RED BLOOD CELL COUNT(AUTO) 3.67 MIL/uL (4.5-6.0); WHITE BLOOD COUNT (AUTO) 3.2 K/uL (4.3-11.0)
== END 2022-01-30 08:00 | DRG 137 ==
LOC: ER 13:14 → MED 18:53 → TELE 19:45
PROVIDERS: ADMIT Nurse Practitioner Acute Care; ATTEND Student in an Organized Health Care Education/Training Program
PROC: 05HB33Z Insertion of Infusion Device into Right Basilic Vein, Percutaneous Approach (ICD-10-PCS; principal; 2022-01-26)
PROC: 5A1D70Z Performance of Urinary Filtration, Intermittent, Less than 6 Hours Per Day (ICD-10-PCS; 2022-01-27)
DX: J15.6 Pneumonia due to other Gram-negative bacteria (principal); D68.59 Other primary thrombophilia; I12.0 Hypertensive chronic kidney disease with stage 5 chronic kidney disease or end stage renal disease; N18.6 End stage renal disease; M84.452A Pathological fracture, left femur, initial encounter for fracture; E11.22 Type 2 diabetes mellitus with diabetic chronic kidney disease; E87.70 Fluid overload, unspecified; E87.5 Hyperkalemia; Z99.2 Dependence on renal dialysis; Z91.15 Patient's noncompliance with renal dialysis; E78.5 Hyperlipidemia, unspecified; Z79.899 Other long term (current) drug therapy; K21.9 Gastro-esophageal reflux disease without esophagitis
CPT/HCPCS: 36415; 71045-TC; 80048-TC; 80076-TC; 83735-TC; 84100-TC; 84484-TC; 85025-TC; 87081-TC; 90935-TC; 94799-TC; C9803; G0378; J0610; J0692; J0885; J1644; J7030; J7050; J7060